=== PATIENT | female | born 1940 | race Caucasian/White ===

== ENCOUNTER → 2019-09-26 | Outpatient (CLI) | payer MEDICARE, OTHER ==
[2019-09-26 11:38] LABS: BASO % 0 % (0-3); EOS # 0.1 x10^3/uL (0.0-0.7); EOS % 2 % (0-3); HEMATOCRIT 41.2 % (36.0-47.0); HEMOGLOBIN 13.8 g/dL (12.0-15.5); LYMPH # 1.7 x10^3/uL (1.0-4.8); LYMPH % 29 % (24-48); MEAN CORPUSCULAR HEMOGLOBIN 30 pg (25-35); MEAN CORPUSCULAR HGB CONC 34 g/dL (31-37); MEAN CORPUSCULAR VOLUME 91 fL (79-100); MONO # 0.3 x10^3/uL (0.0-1.1); MONO % 6 % (0-9); NEUT # 3.7 x10^3uL (1.8-7.7); NEUT % 63 % (31-73); PLATELET COUNT 192 x10^3/uL (140-400); RED BLOOD COUNT 4.55 x10^6/uL (3.50-5.40); RED CELL DISTRIBUTION WIDTH 14.1 % (11.5-14.5); WHITE BLOOD COUNT 5.8 x10^3/uL (4.0-11.0)
[2019-09-26 11:51] LABS: ALBUMIN 3.7 g/dL (3.4-5.0); ALBUMIN/GLOBULIN RATIO 0.9 (1.0-1.7); CALCIUM 9.4 mg/dL (8.5-10.1); CREATININE 0.9 mg/dL (0.6-1.0); GFR 60.7; TOTAL BILIRUBIN 0.5 mg/dL (0.2-1.0); TOTAL PROTEIN 7.7 g/dL (6.4-8.2)
[2019-09-26 12:06] LABS: AMORPHOUS SEDIMENT,UR PRESENT /HPF; BACTERIA,URINE MOD /HPF (0-FEW); BILIRUBIN,URINE NEG (NEG); CLARITY,URINE CLOUDY; COLOR,URINE AMBER; GLUCOSE,URINE NEG (NEG); NITRITE,URINE NEG (NEG); SQUAMOUS EPITHELIAL CELL,UR MOD /LPF; UROBILINOGEN,URINE 0.2 mg/dL (0.2 mg/dL)
[2019-09-26 12:07] LABS: GRANULAR CASTS,URINE OCC /HPF; HYALINE CASTS, URINE MOD /HPF
== END | disposition home or self-care (01) ==
LOC: LAB 10:35
PROVIDERS: ATTEND Family Medicine
DX: R10.32 Left lower quadrant pain (principal); R63.0 Anorexia; Z93.3 Colostomy status
CPT/HCPCS: 36415; 80053; 81001; 82150; 83690; 85025; 87086

== ENCOUNTER → 2019-10-05 | Outpatient (CLI) | payer OTHER ==
[~2019-10-05] MED LIST: IOHEXOL 240 MG/ML 50ML VIAL. ONE
--- NOTE | 2019-10-05 11:41 | RAD ---
CT abdomen pelvis with oral contrast only Indication: Lower abdominal pain Technique: Noncontrast CT imaging was performed of the abdomen and pelvis, multiplanar reconstruction images submitted. Oral contrast was given. One or more of the following individualized dose reduction techniques were utilized for this examination: 1. Automated exposure control 2. Adjustment of the mA and/or kV according to patient size 3. Use of iterative reconstruction technique. Comparison: April 13, 2008 Findings: There is some motion degradation. Accurate evaluation of abdominal visceral organs is limited without intravenous contrast. There are some splenic granulomas. No new obvious focal abnormality is identified of the liver, spleen, pancreas allowing for noncontrast technique. There is focus of peripheral round calcification near the splenic hilum now present about 1.1 cm maximal dimension. There is no hydronephrosis of either kidney. No convincing renal calculus is identified. There is no adrenal nodularity. No free air is identified. There is now anterior left pelvic colostomy. There is degree of wall thickening of the descending colon and to lesser degree of the more distal transverse colon. There is some stool density in the region of rectum. There is some density with displacement of contrast column of bowel in the right pelvis apparently near anastomotic site such as seen axial images 80 and 87 series 2. There is no significant free fluid. There is multilevel lumbar facet degenerative change. There is grade 1 anterior spondylolisthesis L5-S1. IMPRESSION: 1. There is appearance of degree of wall thickening of the descending colon as may be seen with colitis. There is left colostomy. There is appearance of some wall irregularity of bowel in the right pelvis near anastomotic site although may be on a postsurgical basis. 2. 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 Electronically signed by: Irvin Ferrara MD (10/05/2019 11:38 AM) [id number]
== END | disposition home or self-care (01) ==
LOC: CT 08:53
PROVIDERS: ATTEND Physician Assistant
DX: D73.89 Other diseases of spleen (principal)
CPT/HCPCS: 74176

== ENCOUNTER → 2020-11-16 | Outpatient (CLI) | payer OTHER ==
[2020-11-16 11:12] LABS: ALBUMIN 3.7 g/dL (3.4-5.0); CALCIUM 8.6 mg/dL (8.5-10.1); CREATININE 0.7 mg/dL (0.6-1.0); GFR 80.9; POTASSIUM 3.4 mmol/L (3.5-5.1); TOTAL BILIRUBIN 0.5 mg/dL (0.2-1.0); TOTAL PROTEIN 7.3 g/dL (6.4-8.2)
[2020-11-16 11:14] LABS: BASO % 1 % (0-3); EOS % 1 % (0-3); HEMATOCRIT 37.8 % (36.0-47.0); HEMOGLOBIN 12.5 g/dL (12.0-15.5); LYMPH # 1.3 x10^3/uL (1.0-4.8); LYMPH % 28 % (24-48); MEAN CORPUSCULAR HEMOGLOBIN 31 pg (25-35); MEAN CORPUSCULAR HGB CONC 33 g/dL (31-37); MEAN CORPUSCULAR VOLUME 93 fL (79-100); MONO # 0.3 x10^3/uL (0.0-1.1); MONO % 6 % (0-9); NEUT % 65 % (31-73); PLATELET COUNT 178 x10^3/uL (140-400); RED BLOOD COUNT 4.05 x10^6/uL (3.50-5.40); RED CELL DISTRIBUTION WIDTH 14.4 % (11.5-14.5); WHITE BLOOD COUNT 4.7 x10^3/uL (4.0-11.0)
== END ==
LOC: LAB 09:27
PROVIDERS: ATTEND Family Medicine
DX: E87.6 Hypokalemia (principal); E53.8 Deficiency of other specified B group vitamins; E03.9 Hypothyroidism, unspecified; E55.9 Vitamin D deficiency, unspecified; K21.9 Gastro-esophageal reflux disease without esophagitis; F34.1 Dysthymic disorder; F33.1 Major depressive disorder, recurrent, moderate
CPT/HCPCS: 36415; 80053; 80061; 82150; 82652; 83690; 85025

== ENCOUNTER 2020-12-11 10:30 | Emergency (ER) | payer OTHER ==
[~2020-12-11] VITALS: Ht 157.5 cm; Wt 110.0 kg
[2020-12-11 10:30] VITALS: BP 136/48
--- NOTE | 2020-12-11 10:41 | PHYS DOC ---
Past History Past Medical History: Dementia, Hypertension Past Medical History Hypokalemia Past Surgical History: Colectomy, Hysterectomy Smoking: Non-smoker Alcohol Use: None Drug Use: None General Adult EDM: Chief Complaint: MECHANICAL FALL HPI: HPI: Patient is a 80 year old female who presents with fall. The patient has dementia and history came from her daughter who is at bedside. According to the daughter she lost her balance and fell while ambulating and landed on the back of her head. The daughter states that she did lose consciousness for several minutes. The patient notes a laceration on the back of her head, but denies any neck pain or other symptoms although she is not a reliable historian. The daughter also notes that the patient had another fall yesterday, and has some concern for a possible UTI. Review of Systems: Review of Systems: Review of systems limited due to patient's mental status. Allergies: Allergies: Allergies Coded Allergies Type Severity Reaction Last Updated Verified No Known Drug Allergies 10/05/19 No Physical Exam: PE: Constitutional: Well developed, well nourished, no acute distress, non-toxic appearance HENT: Normocephalic, atraumatic Eyes: PERRL, EOMI, conjunctiva normal, no discharge Neck: Normal range of motion, no tenderness, supple Lungs & Thorax: No respiratory distress, equal chest rise and fall Abdomen: Soft, no tenderness Skin: Warm, dry, no erythema, no rash. Small 2 cm laceration on back of head. Back: No tenderness, no CVA tenderness Extremities: No tenderness, ROM intact, no edema Neurologic: Alert and oriented X 3, normal motor function, normal sensory function, no focal deficits noted Psychologic: Affect normal, patient is confused at baseline Physical exam was partly limited due to patient's mental status EKG: EKG: [] Radiology/Procedures: Radiology/Procedures: [] Course & Med Decision Making: Course & Med Decision Making Pertinent Labs and Imaging studies reviewed. (See chart for details) [] Dragon Disclaimer: Kenneth Disclaimer: This electronic medical record was generated, in whole or in part, using a voice recognition dictation system. Laceration/Wound Repair Laceration/Wound Repair : Wound Location: head Wound Length (cm): 2 Wound Explored: clean Betadine Prep?: Yes Progress Verbal consent obtained. Time out performed. Hand hygiene utilized. Wound cleaned with ChloraPrep. No anesthesia was utilized. Copious irrigation performed. Wound well approximated with 3 hailey. Patient tolerated procedure well and without difficulty. Empiric antibiotic ointment applied prior to sterile dressing. Departure Departure: Impression: Primary Impression: Occipital scalp laceration Qualified Codes: S01.01XA - Laceration without foreign body of scalp, initial encounter Additional Impressions: Fall Qualified Codes: W19.XXXA - Unspecified fall, initial encounter Minor head injury with loss of consciousness Qualified Codes: S06.9X9A - Unspecified intracranial injury with loss of consciousness of unspecified duration, initial encounter Disposition: 01 DC HOME SELF CARE/HOMELESS Condition: STABLE Referrals: AMAYA PALMER MD (PCP) Patient Instructions: Fall Prevention and Home Safety, [id number], Head Inj ury, Adult, [id number], Laceration Care, Adult, [id number] Additional Instructions: Do not soak your wound. You may shower. Clean wound daily with soap and water. Change dressing 2 times daily. Use over the counter antibiotic ointment with each dressing change. [place] need to be removed in 7-10 days. Present to your family doctor or local urgent care for removal. You may also present to the ED but it will be an additional visit/charge. DILAN REAGAN DO Dec 11, 2020 10:41
--- NOTE | 2020-12-11 11:31 | RAD ---
CT HEAD AND C-SPINE WO History: Reason: occipital scalp laceration / Spl. Instructions: / History: Comparison: None. Technique: Noncontrast CT of the head and cervical spine. Findings: CT HEAD: There is no evidence for intracranial mass or hemorrhage. There is no hydrocephalus or midline shift. No abnormal extra-axial fluid collections are present. Arellano/white matter differentiation is preserved. The visualized paranasal sinuses and mastoid air cells are clear. No skull fractures identified. There are skin hailey at the occiput. CT CERVICAL SPINE: There is no evidence for fracture in the cervical spine. Alignment is normal. Multilevel disc and facet disease with disc space narrowing, uncovertebral and facet hypertrophy thro ughout the cervical spine. No destructive osseous lesions are seen. Limited evaluation of the soft tissues of the neck and of the upper chest is unremarkable. Impression: 1. No acute intracranial abnormality. 2. Degenerative changes of the cervical spine without acute osseous abnormality. Exposure: One or more of the following individualized dose reduction techniques were utilized for thi s examination: 1. Automated exposure control 2. Adjustment of the mA and/or kV according to patient size 3. Use of iterative reconstruction technique. Electronically signed by: Jorge A Vargas MD (12/11/2020 11:29 AM) [facility]
[2020-12-11] MEDS ORDERED: NEOMY/BACITR/POLYMYXIN OINT PACKET. TP ONE (12:00)
[2020-12-11 13:25] LABS: BACTERIA,URINE MANY /HPF (0-FEW); BILIRUBIN,URINE NEG (NEG); CLARITY,URINE CLOUDY; COLOR,URINE YELLOW; GLUCOSE,URINE NEG (NEG); NITRITE,URINE POS (NEG); SQUAMOUS EPITHELIAL CELL,UR FEW /LPF; UROBILINOGEN,URINE 0.2 mg/dL (0.2 mg/dL); WBC,URINE >40 /HPF (0-4)
[2020-12-11 13:26] LABS: HYALINE CASTS, URINE OCC /HPF
== END 2020-12-11 13:10 | disposition home or self-care (01) ==
LOC: ER 10:30
DX: S01.01XA Laceration without foreign body of scalp, initial encounter (principal); S06.9X9A Unspecified intracranial injury with loss of consciousness of unspecified duration, initial encounter; F03.90 Unspecified dementia, unspecified severity, without behavioral disturbance, psychotic disturbance, mood disturbance, and anxiety; I10 Essential (primary) hypertension; W18.39XA Other fall on same level, initial encounter; Y93.89 Activity, other specified; Y92.89 Other specified places as the place of occurrence of the external cause; Y99.8 Other external cause status
CPT/HCPCS: 12001; 70450; 72125; 81001; 87086; 99285-25

== ENCOUNTER 2021-01-07 03:18 | Emergency (ER) | payer OTHER ==
[~2021-01-07] VITALS: Ht 157.5 cm; Wt 110.0 kg
[2021-01-07 03:18] VITALS: BP 108/54
--- NOTE | 2021-01-07 03:21 | PHYS DOC ---
Past History Past Medical History: A-Fib, Anxiety, Arthritis, Dementia, Hypertension, Renal Failure, Other Additional Past Medical Histor: Hypokalemia Past Surgical History: Colectomy, Hysterectomy Smoking: Non-smoker Alcohol Use: None Drug Use: None General Adult EDM: Chief Complaint: DIZZY/LIGHT HEADED HPI: HPI: "....I just want to pee.. I don't want ... to be here... My family made me come.. I don't have any thing wrong.. I just fell .. I was getting up to go pee... I just want to go home now...".."tell my people to take me home now..." " Patient reportedly was having weakness this week with increased dizziness and difficulty with her gait. Has had frequent falls for the last 2 weeks. Patient... Will not follow instructions with the family. We will not wait until they can assist her to the bathroom.,,, They brought her to the emergency room tonight to be further evaluated because of her increased weakness and falls..." Patient is a 80 year old female who presents with above hx and complaints. Pt. patient has had 2 weeks of increased weakness, dizziness, and difficulty with her gait. Patient has had no changes in meds. No recent travel. No severe ill contacts. Patient does have a history of dementia, hypertension, arthritis, and urinary tract infections. No recent travel. No severe ill contacts. Son is a primary shorts sifter. Patient has fallen several times last 2 weeks. Patient did denies any change in rhythm prior to her falls. But does think complained of increased weakness the past 2 weeks. Review of Systems: Review of Systems: Constitutional: Denies fever or chills Eyes: Denies change in visual acuity HENT: Denies nasal congestion or sore throat Respiratory: Denies cough or shortness of breath Cardiovascular: Denies chest pain or edema GI: Denies abdominal pain, nausea, vomiting, bloody stools or diarrhea : Complains of frequent urination and dysuria Musculoskeletal: Complains of multiple arthritic issues and joint pain. Complai ns of generalized muscle weakness both upper and lower extremities Integument: Denies rash Neurologic: Denies headache, focal weakness or sensory changes Endocrine: Denies polyuria or polydipsia Lymphatic: Denies swollen glands Psychiatric: D history of anxiety Family History: Family History: Noncontributory to presentation Current Medications: Current Meds: See nursing for home medications Allergies: Allergies: Allergies Coded Allergies Type Severity Reaction Last Updated Verified No Known Drug Allergies 10/05/19 No Physical Exam: PE: Constitutional: Chronically ill in appearance. [] HENT: Normocephalic, atraumatic, bilateral external ears normal, oropharynx dry, no oral exudates, nose normal. [] Eyes: PERRLA, EOMI, conjunctiva normal, no discharge. [] Neck: Normal range of motion, no tenderness, supple, no stridor. [] Cardiovascular: Irregular rate and rhythm no murmur [], monitor shows A. fib with ventricular response in the 70s Lungs & Thorax: Bilateral breath sounds equal apex with a few basilar crackles on auscultation [] Abdomen: Bowel sounds normal, soft, no tenderness, no masses, no pulsatile masses. Distended Skin: Warm, dry, no erythema, no rash. Poor turgor Back: No tenderness, no CVA tenderness. [] Extremities: No tenderness, no cyanosis, no clubbing, ROM intact, no edema. Arthritic changes Neurologic: Alert and oriented X 3, moves all extremities on request, does have distal sensory, no focal deficits noted. [] Psychologic: Affect argumentative, judgement appears to have some impairment, mood normal. [] Does have a history of dementia. EKG: EKG: My interpretation EKG shows a irregular rate and rhythm. No consistent Pwave to QRS complex. Consistent with A. fib. Does have slightly prolonged QT interval at 450 ms QTC is 495 ms. Radiology/Procedures: Radiology/Procedures: [address] [address] IMAGING REPORT Signed PATIENT: JUAN GARCÍA ACCOUNT: [id number] : 1940 LOCATION: ER AGE: 80 SEX: F EXAM STATUS: REG ER ORD. PHYSICIAN: BHUPINDER STEWART MD REASON: fall,dyspnesa PROCEDURE: PORTABLE CHEST 1V AP chest x-ray HISTORY: Fall, dyspnea. COMPARISON: Chest x-ray May 16, 2008. FINDINGS: Heart size normal. Mediastinal silhouette is normal. No pneumothorax. No pleural effusions. At the lateral aspect of the right midline there is a 7 mm nodular density new from prior x-rays could represent round pneumonia or a new pulmonary nodule. Left lung is clear. Bones are unremarkable. IMPRESSION: 7 mm density at the right mid lung could represent round pneumonia or a pulmonary nodule. Short-term follow-up chest x-rays versus CT chest follow- up is advised. Electronically signed by: John Avelar MD (01/07/2021 4:50 AM) [facility] [place]ATED AND SIGNED BY: JOHN AVELAR MD DATE: 01/07/21 0448 CC: AMAYA PALMER MD; BHUPINDER STEWART MD ~MTH0 [address] [address] IMAGING REPORT Signed PATIENT: JUAN GARCÍA ACCOUNT: [id number] : 1940 LOCATION: ER AGE: 80 SEX: F EXAM STATUS: REG ER ORD. PHYSICIAN: BHUPINDER STEWART MD REASON: falling PROCEDURE: CT LUMBAR SPINE WO CONTRAST CT head without contrast. CT cervical spine without contrast. CT lumbar spine without contrast. PQRS statement: CT scans at this facility use dose reduction including either automated exposure control, iterative reconstructions, and /or weight based radiation dosing via mA and kV modification when appropriate to reduce radiation dose to as low as reasonably achievable. HISTORY: Fall, pain. CT head findings: Small dural calcifications are present. No intracranial hemorrhage, mass, hydrocephalus, extra-axial fluid collections or infarction. Orbits, mastoids and bones are unremarkable. IMPRESSION: No acute intracranial CT abnormality. 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 Craniocervical junction intact. Cervical vertebral body height and alignment intact. 1 mm anterolisthesis C4 on C5 associated with facet arthritis. No f racture of the cervical spine. Moderate disc height loss at C5-C6 and C6-C7, scattered disc bulges, and disc osteophytes and uncovertebral facet spurring with spinal canal and neural foraminal stenoses. Imaged lung apices and paraspinal tissues are unremarkable. IMPRESSION: No acute osseous injury of the cervical spine. Cervical disc disease as described above. CT lumbar spine findings: Grade 1 anterolisthesis of L5 on S1 associated with disc disease and advanced facet arthritis. Lumbar vertebral body height and alignment intact. Lumbar disc bulges and facet spurring at several levels. At L4-L5 there is a disc bulge with mild spinal canal and neural foraminal stenoses. At L5-S1 there is disc height loss and disc bulge and bulky facet spurs contribute to moderate neural foraminal stenoses and mild/moderate spinal canal stenosis. IMPRESSION: No acute osseous injury of the lumbar spine. Lumbar disc disease and facet arthrosis. See above. Electronically signed by: John Avelar MD (01/07/2021 5:02 AM) [facility] SIGNED BY: JOHN AVELAR MD DATE: 01/07/21452 CC: AMAYA PALMER MD; BHUPINDER STEWART MD ~MTH0 0 Heart Score: C/O Chest Pain: N/A HEART Score for Chest Pain: HEART Score for Chest Pain Response (Comments) Value History Moderately Suspicious 1 ECG Nonspecific Repolarizatio 1 Age > 65 2 Risk Factors 1 or 2 Risk Factors 1 Troponin < Normal Limit 0 Total 5 Risk Factors: Risk Factors: DM, Current or recent (<one month) smoker, HTN, HLP, family history of CAD, obesity. Risk Scores: Score 0 - 3: 2.5% MACE over next 6 weeks - Discharge Home Score 4 - 6: 20.3% MACE over next 6 weeks - Admit for Clinical Observation Score 7 - 10: 72.7% MACE over next 6 weeks - Early Invasive Strategies Course & Med Decision Making: Course & Med Decision Making Pertinent Labs and Imaging studies reviewed. (See chart for details) Discussed presentation, testing and tx. plan with Dr. Yeung- [facility]. Will accept pt in transfer for nephrology and and cardiology consults at [facility] Will start heparin for coverage A. fib and give fluid bolus. Urine cath pending. Impression: 1. Weakness 2. Dehydration 3. Arthritis 4. Falling 5. Acute Renal Failure- BUnN72/4.2 Creat.- (Dehydration vs Acute on Chronic) 6. Afib. New on set. 7. Anemia Hgb. 11.5 8. Dementia [] Dragon Disclaimer: Kenneth Disclaimer: This electronic medical record was generated, in whole or in part, using a voice recognition dictation system. Departure Departure: Referrals: AMAYA PALMER MD (PCP) Kenneth Disclaimer This chart was dictated in whole or in part using Voice Recognition software in a busy, high-work load, and often noisy Emergency Department environment. It may contain unintended and wholly unrecognized errors or omissions. BHUPINDER STEWART MD Jan 07, 2021 03:21
[2021-01-07] MEDS ORDERED: IV RINGERS SOLUTION,LACTATED 1,000 ML IV SCH (04:15)
--- NOTE | 2021-01-07 04:25 | EKG ---
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
--- NOTE | 2021-01-07 04:52 | RAD ---
AP chest x-ray HISTORY: Fall, dyspnea. COMPARISON: Chest x-ray May 16, 2008. FINDINGS: Heart size normal. Mediastinal silhouette is normal. No pneumothorax. No pleural effusions. At the lateral aspect of the right midline there is a 7 mm nodular density new from prior x-rays cou ld represent round pneumonia or a new pulmonary nodule. Left lung is clear. Bones are unremarkable. IMPRESSION: 7 mm density at the right mid lung could represent round pneumonia or a pulmonary nodule. Short-term follow-up chest x-rays versus CT chest follow-up is advised. Electronically signed by: Paresh Avelar MD (01/07/2021 4:50 AM) [facility]
[2021-01-07 05:01] LABS: BASO % 1 % (0-3); EOS % 1 % (0-3); HEMATOCRIT 34.9 % (36.0-47.0); HEMOGLOBIN 11.5 g/dL (12.0-15.5); LYMPH # 1.6 x10^3/uL (1.0-4.8); LYMPH % 19 % (24-48); MEAN CORPUSCULAR HEMOGLOBIN 31 pg (25-35); MEAN CORPUSCULAR HGB CONC 33 g/dL (31-37); MEAN CORPUSCULAR VOLUME 94 fL (79-100); MONO # 0.6 x10^3/uL (0.0-1.1); MONO % 7 % (0-9); NEUT # 5.9 x10^3uL (1.8-7.7); NEUT % 73 % (31-73); PLATELET COUNT 190 x10^3/uL (140-400); RED BLOOD COUNT 3.72 x10^6/uL (3.50-5.40); RED CELL DISTRIBUTION WIDTH 14.1 % (11.5-14.5); WHITE BLOOD COUNT 8.1 x10^3/uL (4.0-11.0)
--- NOTE | 2021-01-07 05:05 | RAD ---
CT head without contrast. CT cervical spine without contrast. CT lumbar spine without contrast. PQRS statement: CT scans at this facility use dose reduction including either automated exposure cont rol, iterative reconstructions, and /or weight based radiation dosing via mA and kV modification when appropriate to reduce radiation dose to as low as reasonably achievable. HISTORY: Fall, pain. CT head findings: Small dural calcifications are present. No intracranial hemorrhage, mass, hydroceph alus, extra-axial fluid collections or infarction. Orbits, mastoids and bones are unremarkable. IMPRESSION: No acute intracranial CT abnormality. 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 Craniocervical junction in tact. Cervical vertebral body height and alignment intact. 1 mm anterolisthesis C4 on C5 associated w ith facet arthritis. No fracture of the cervical spine. Moderate disc height loss at C5-C6 and C6-C7, scattered disc bulges, and disc osteophytes and uncovertebral facet spurring with spinal canal and n eural foraminal stenoses. Imaged lung apices and paraspinal tissues are unremarkable. IMPRESSION: No acute osseous injury of the cervical spine. Cervical disc disease as described above. CT lumbar spine findings: Grade 1 anterolisthesis of L5 on S1 associated with disc disease and advanc ed facet arthritis. Lumbar vertebral body height and alignment intact. Lumbar disc bulges and facet s purring at several levels. At L4-L5 there is a disc bulge with mild spinal canal and neural foraminal stenoses. At L5-S1 there is disc height loss and disc bulge and bulky facet spurs contribute to mode rate neural foraminal stenoses and mild/moderate spinal canal stenosis. IMPRESSION: No acute osseous injury of the lumbar spine. Lumbar disc disease and facet arthrosis. See above. Electronically signed by: Paresh Avelar MD (01/07/2021 5:02 AM) [facility]
[2021-01-07 05:13] LABS: CALCIUM 8.2 mg/dL (8.5-10.1); CREATININE 4.2 mg/dL (0.6-1.0); GFR 10.2; POTASSIUM 3.3 mmol/L (3.5-5.1)
[2021-01-07 05:26] LABS: ALBUMIN 3.8 g/dL (3.4-5.0); DIRECT BILIRUBIN 0.1 mg/dL (0.0-0.2); MAGNESIUM 1.3 mg/dL (1.8-2.4); TOTAL BILIRUBIN 0.2 mg/dL (0.2-1.0)
[2021-01-07] MEDS ORDERED: HEPARIN 25,000UTS/250ML PREMIX 250 ML IV PRN (06:00)
== END 2021-01-07 07:42 | disposition short-term general hospital (02) ==
LOC: ER 03:18
DX: N17.9 Acute kidney failure, unspecified (principal); R53.1 Weakness; E86.0 Dehydration; M19.90 Unspecified osteoarthritis, unspecified site; I48.91 Unspecified atrial fibrillation; D64.9 Anemia, unspecified; F03.90 Unspecified dementia, unspecified severity, without behavioral disturbance, psychotic disturbance, mood disturbance, and anxiety; F41.9 Anxiety disorder, unspecified; W18.39XA Other fall on same level, initial encounter; Y93.89 Activity, other specified; Y92.89 Other specified places as the place of occurrence of the external cause; Y99.8 Other external cause status
CPT/HCPCS: 36415; 70450; 71045; 72125; 72131; 80048; 80076; 82550; 83690; 83735; 83880; 84443; 84484; 85025; 85610; 85730; 93005; 99285-25

== ENCOUNTER 2021-04-20 12:43 | Inpatient (IN) | payer OTHER ==
[~2021-04-20] VITALS: Ht 157.5 cm; Wt 63.3 kg
--- NOTE | 2021-04-20 12:56 | PHYS DOC ---
Past History Past Medical History: A-Fib, Anxiety, Arthritis, Dementia, Hypertension, Renal Failure, Other Additional Past Medical Histor: Hypokalemia Past Surgical History: Colectomy, Hysterectomy Smoking: Non-smoker Alcohol Use: None Drug Use: None Adult General Chief Complaint Chief Complaint: URINARY RETENTION HPI HPI Patient is a 80-year-old female presenting with daughter by way of PCP office for dehydration. She has history of Alzheimer's dementia and patient history limited. Primary historian is daughter. Patient lives with and other family members and has been having poor p.o. intake and urine output for the last week without any known changes in medication, sick contacts, recent travel, trauma, or falls. This morning, patient reported she was nauseous and had x2 episodes of nonbloody nonbilious emesis. This concerned daughter prompting her to transport patient to primary care physician office. Patient reported ongoing nausea and was clinically dehydrated, she has history of failure to thrive and subsequent GALLO due to dehydration and so, daughter was advised to bring patient to our ER for evaluation and likely admission Review of Systems Review of Systems Fourteen body systems of review of systems have been reviewed. See HPI for pertinent positives and negative responses, other villegas all other systems are negative, non-pertinent or non-contributory Allergies Allergies Allergies Coded Allergies Type Severity Reaction Last Updated Verified No Known Drug Allergies 10/05/19 No Physical Exam Physical Exam Constitutional: Age-appropriate. No acute distress. Appears clinically dehydrated HENT: Normocephalic, atraumatic, bilateral external ears normal, oropharynx dry, no oral exudates, nose normal. Eyes: PERRLA, EOMI, conjunctiva normal, no discharge. Neck: Normal range of motion, no tenderness, supple, no stridor. Cardiovascular: Heart rate regular, sinus rhythm, holosystolic murmur Lungs & Thorax: Bilateral breath sounds clear to auscultation Abdomen: Bowel sounds normal, soft, no tenderness, no masses, no pulsatile masses. Nonsurgical abdomen, no peritoneal signs Skin: Warm, dry, no erythema, no rash. Back: No tenderness, no CVA tenderness. Extremities: No tenderness, no cyanosis, no clubbing, ROM intact, no edema. Neurologic: Alert and oriented to person only, grossly normal motor & sensory function, no focal deficits noted. Psychologic: Alzheimer's dementia, agitated affect and mood Current Patient Data Vital Signs Vital Signs Date Time Temp Pulse Resp B/P (MAP) Pulse Ox O2 Delivery O2 Flow Rate FiO2 04/20/21 15:01 55 18 108/54 99 Vital Signs Date Time Temp Pulse Resp B/P (MAP) Pulse Ox O2 Delivery O2 Flow Rate FiO2 04/20/21 15:01 55 18 108/54 99 Lab Results Laboratory Tests Test 04/20/21 13:45 White Blood Count 7.4 x10^3/uL Red Blood Count 4.05 x10^6/uL Hemoglobin 12.6 g/dL Hematocrit 38.4 % Mean Corpuscular Volume 95 fL Mean Corpuscular Hemoglobin 31 pg Mean Corpuscular Hemoglobin Concent 33 g/dL Red Cell Distribution Width 13.3 % Platelet Count 195 x10^3/uL Neutrophils (%) (Auto) 82 % Lymphocytes (%) (Auto) 14 % Monocytes (%) (Auto) 4 % Eosinophils (%) (Auto) 0 % Basophils (%) (Auto) 0 % Neutrophils # (Auto) 6.0 x10^3uL Lymphocytes # (Auto) 1.1 x10^3/uL Monocytes # (Auto) 0.3 x10^3/uL Eosinophils # (Auto) 0.0 x10^3/uL Basophils # (Auto) 0.0 x10^3/uL Sodium Level 144 mmol/L Potassium Level 4.8 mmol/L Chloride Level 112 mmol/L Carbon Dioxide Level 13 mmol/L Anion Gap 19 Blood Urea Nitrogen 109 mg/dL Creatinine 3.7 mg/dL Estimated GFR (Cockcroft-Gault) 11.8 BUN/Creatinine Ratio 29 Glucose Level 132 mg/dL Calcium Level 9.6 mg/dL Total Bilirubin 0.3 mg/dL Aspartate Amino Transf (AST/SGOT) 12 U/L Alanine Aminotransferase (ALT/SGPT) 17 U/L Alkaline Phosphatase 110 U/L Troponin I Quantitative < 0.017 ng/mL ER-Mmj-G-Type Natriuretic Peptide 237 pg/mL Total Protein 7.8 g/dL Albumin 4.2 g/dL Albumin/Globulin Ratio 1.2 Current Medications Medications (Trade) Dose Ordered Sig/Brian Route PRN Reason Start Time Stop Time Status Last Admin Dose Admin Sodium Chloride 1,000 ml @ 1,000 mls/hr 1X ONCE IV 04/20/21 13:45 04/20/21 14:44 DC Sodium Chloride 1,000 ml @ 125 mls/hr 1X ONCE IV 04/20/21 15:00 04/20/21 22:59 Ondansetron HCl (Zofran) 4 mg PRN Q4HRS PRN IVP NAUSEA/VOMITING 04/20/21 15:15 04/21/21 15:14 Acetaminophen (Tylenol) 650 mg PRN Q4HRS PRN PO FEVER > 100.3'F 04/20/21 15:15 04/21/21 15:14 EKG EKG EKG ordered and interpreted by myself at 1402 hrs. as sinus rhythm at 72 bpm, prolonged AL interval at 204 otherwise unremarkable intervals, no axis deviation, no acute ischemic findings, no STEMI Radiology/Procedures Radiology/Procedures EXAMINATION: XR CHEST 1V CLINICAL HISTORY: Fatigue EXAM DATE/TIME: 04/20/2021 2:30 PM COMPARISON: 01/07/2021 FINDINGS: Lines, Tubes, and Devices: None. Cardiomediastinal Silhouette: Normal heart size. Aortic atherosclerotic calcification. Lungs and Pleura: Similar appearing small ill-defined opacity in the right lower lung zone, nonspecific. No evidence of focal airspace consolidation or pleural effusion. Pulmonary vasculature unremarkable. Bones and Soft Tissues: Degenerative changes of the thoracic spine. IMPRESSION: No evidence of acute cardiopulmonary abnormality or significant interval change. Similar-appearing small ill-defined opacity in the right lower lung zone, nonspecific. Nonemergent CT chest could be obtained for further evaluation as indicated. Electronically signed by: Stevo Le DO (04/20/2021 2:48 PM) [facility] Heart Score C/O Chest Pain: No HEART Score for Chest Pain: HEART Score for Chest Pain Response (Comments) Value History Slighlty/Non-Suspicious 0 ECG Nonspecific Repolarizatio 1 Age > 65 2 Risk Factors No Risk Factors 0 Troponin < Normal Limit 0 Total 3 Risk Factors: Risk Factors: DM, Current or recent (<one month) smoker, HTN, HLP, family history of CAD, obesity. Risk Scores: Risk Factors: DM, Current or recent (<one month) smoker, HTN, HLP, family history of CAD, obesity. Course & Med Decision Making Course & Med Decision Making ABCs unremarkable. HPI from daughter and physical examination concerning for dehydration versus failure to thrive. Comprehensive ER work-up concerning for GALLO likely due to hypovolemic state Patient tolerated 1 L IV fluid rehydration. I discussed with daughter there is no indication for further diagnostic work-up in ER setting; however, given patient's kidney status she will require admission Contacted patient's primary care physician who also serves as hospitalist at [facility], discussion was had on appropriateness to keep versus transfer for nephrology consultation. Joint decision to keep patient at [facility] due to extensive hypovolemic state that should improve This discussion was discussed with patient and daughter at bedside with recommendation for admission, they were amenable. All questions and concerns addressed prior to hospital admission to [facility] This patient required critical care. Due to the fact that the patient required a significant amount of one on one physician - patient contact time, ordering and review of studies, arranging urgent treatment with development of a management plan, evaluation of patients response to treatment with frequent reassessments, and discussions with other providers this patient required 30 minutes of critical care time. Critical care time was indicated due to the inherent instability and/or potential for instability in this patient. The critical care time that is allocated to this patient is above and beyond any time spent on any other billable procedures performed on this patient. Dragon Disclaimer Dragon Disclaimer This electronic medical record was generated, in whole or in part, using a voice recognition dictation system. Departure Departure: Impression: Primary Impression: GALLO (acute kidney injury) Additional Impressions: Failure to thrive Dementia Disposition: ADMITTED INPATIENT Admitting Physician: Murray Palmer Condition: STABLE Referrals: MURRAY PALMER MD (PCP) Problem Qualifiers GERALD GARCIA DO Apr 20, 2021 12:56
[2021-04-20] MEDS ORDERED: IV NORMAL SALINE 1,000ML 1,000 ML IV ONE ×2 (13:45→15:00)
[2021-04-20 14:01] LABS: BASO % 0 % (0-3); EOS % 0 % (0-3); HEMATOCRIT 38.4 % (36.0-47.0); HEMOGLOBIN 12.6 g/dL (12.0-15.5); LYMPH # 1.1 x10^3/uL (1.0-4.8); LYMPH % 14 % (24-48); MEAN CORPUSCULAR HEMOGLOBIN 31 pg (25-35); MEAN CORPUSCULAR HGB CONC 33 g/dL (31-37); MEAN CORPUSCULAR VOLUME 95 fL (79-100); MONO # 0.3 x10^3/uL (0.0-1.1); MONO % 4 % (0-9); NEUT % 82 % (31-73); PLATELET COUNT 195 x10^3/uL (140-400); RED BLOOD COUNT 4.05 x10^6/uL (3.50-5.40); RED CELL DISTRIBUTION WIDTH 13.3 % (11.5-14.5); WHITE BLOOD COUNT 7.4 x10^3/uL (4.0-11.0)
[2021-04-20 14:16] LABS: ALBUMIN 4.2 g/dL (3.4-5.0); ALBUMIN/GLOBULIN RATIO 1.2 (1.0-1.7); CALCIUM 9.6 mg/dL (8.5-10.1); CREATININE 3.7 mg/dL (0.6-1.0); GFR 11.8; POTASSIUM 4.8 mmol/L (3.5-5.1); TOTAL BILIRUBIN 0.3 mg/dL (0.2-1.0); TOTAL PROTEIN 7.8 g/dL (6.4-8.2)
--- NOTE | 2021-04-20 14:50 | RAD ---
EXAMINATION: XR CHEST 1V CLINICAL HISTORY: Fatigue EXAM DATE/TIME: 04/20/2021 2:30 PM COMPARISON: 01/07/2021 FINDINGS: Lines, Tubes, and Devices: None. Cardiomediastinal Silhouette: Normal heart size. Aortic atherosclerotic calcification. Lungs and Pleura: Similar appearing small ill-defined opacity in the right lower lung zone, nonspecif ic. No evidence of focal airspace consolidation or pleural effusion. Pulmonary vasculature unremarkab le. Bones and Soft Tissues: Degenerative changes of the thoracic spine. IMPRESSION: No evidence of acute cardiopulmonary abnormality or significant interval change. Similar-appearing small ill-defined opacity in the right lower lung zone, nonspecific. Nonemergent CT chest could be obtained for further evaluation as indicated. Electronically signed by: Stevo Le DO (04/20/2021 2:48 PM) SHARA
[2021-04-20] MEDS ORDERED: ACETAMINOPHEN 325 MG TABLET PO PRN (15:15)
--- NOTE | 2021-04-20 18:14 | NUR ---
Pt admitted to room 123 from ED via ems at 1814. daughter stated that she will call nurses to give information about pt.
[2021-04-20] MEDS ORDERED: DEXTROSE 50% 25 GM / 50ML DISP.SYRIN. IV PRN (18:45)
[2021-04-20 19:00] VITALS: BP 115/60
[2021-04-20] MEDS ORDERED: POTA20TA4 PO (20:26)
[2021-04-20] MEDS ORDERED: FURO20TA3 PO (20:26)
[2021-04-20] MEDS ORDERED: LISI20TA18 PO (20:26)
[2021-04-20] MEDS ORDERED: OXCA300T19 PO (20:26)
[2021-04-20 22:30] VITALS: BP 116/69
--- NOTE | 2021-04-20 22:54 | NUR ---
Nursing note: Spoke to Kinjal, [id number], for med history and med rec. Dietary, CM orders placed. New IV placed. Spoke with Jessica Willis.Dayanna cadet.
--- NOTE | 2021-04-20 23:19 | EKG ---
[address] [address] Test Date: 2021-04-20 Test Time: 13:57:12 Pat Name: JUAN GARCÍA Department: Room: 123 A Gender: F [employer]: : [id number] Requested By: GERALD GARCIA Order Number: [id number] Reading MD: Sahil Reid Measurements Intervals [place] Rate: 72 P: 90 ND: 204 QRS: 90 QRSD: 92 T: 62 QT: 390 QTc: 429 Interpretive Statements SINUS RHYTHM Electronically Signed On 04-24-2021 12:32:47 CDT by Sahil Reid
[2021-04-21 00:36] LABS: BILIRUBIN,URINE NEG (NEG); CLARITY,URINE HAZY; COLOR,URINE YELLOW; GLUCOSE,URINE NEG (NEG)
[2021-04-21 00:37] LABS: NITRITE,URINE NEG (NEG); UROBILINOGEN,URINE 0.2 mg/dL (0.2 mg/dL)
[2021-04-21 00:38] LABS: BACTERIA,URINE MANY /HPF (0-FEW); GRANULAR CASTS,URINE OCC /HPF; SQUAMOUS EPITHELIAL CELL,UR OCC /LPF; WBC,URINE >40 /HPF (0-4)
[2021-04-21] MEDS ORDERED: IV NORMAL SALINE 1,000ML 1,000 ML IV SCH (04:00)
[2021-04-21 06:47] LABS: CALCIUM 8.3 mg/dL (8.5-10.1); CREATININE 2.3 mg/dL (0.6-1.0); GFR 20.5; POTASSIUM 4.1 mmol/L (3.5-5.1)
[2021-04-21] MEDS: INSULIN LISPRO 300 UNITS/3 ML VIAL. SQ SCH ×3 (08:00→17:00)
[2021-04-21 08:02] VITALS: BP 133/80
[2021-04-21] MEDS: LISINOPRIL 20 MG TABLET PO SCH (08:04)
[2021-04-21] MEDS: ONDANSETRON PF 4 MG/2 ML VIAL. IVP PRN ×2 (08:04→12:57)
[2021-04-21] MEDS: POTASSIUM CHLORIDE 20 MEQ TABLET.ER. PO SCH (08:04)
[2021-04-21 11:02] VITALS: BP 119/70
[2021-04-21] MEDS ORDERED: TPN PER PHARMACY MC PRN (12:00)
[2021-04-21] MEDS ORDERED: risperiDONE 0.25 MG TABLET. PO ONE (12:00)
[2021-04-21] MEDS ORDERED: AA 3%/ELECTROLYTE-TPN SOLN/GLY 1,000 ML IV SCH ×2 (13:00→16:00)
[2021-04-21] MEDS ORDERED: levoFLOXacin PER PHARMACY 1 EACH. MC PRN (13:30)
[2021-04-21 15:54] VITALS: BP 106/68
[2021-04-21] MEDS: AA 3%/ELECTROLYTE-TPN SOLN/GLY 1,000 ML IV PRN (16:03)
[2021-04-21 19:00] VITALS: BP 118/72
[2021-04-21] MEDS: LACTOBACILLUS RHAMNOSUS GG 1 CAPSULE. PO SCH (20:46)
[2021-04-21] MEDS ORDERED: risperiDONE 0.25 MG TABLET. PO SCH (21:00)
--- NOTE | 2021-04-21 22:04 | PN ---
SUBJECTIVE: The patient is a 80-year-old female. The patient has been having marked outburst of repetitive focal situation such as I am dying or people trying to kill me over and over again. We will start her on some Risperdal for that. The patient's creatinine has come down somewhat from over 3 down to 2.3, dehydration. Family states the patient is not willing to able to eat or drink at home, part of her dehydration and her acute on top of chronic renal failure along with hypernatremia. We will start her on procalamine because of the lack of caloric intake and decide where we need to go from there in terms of the family wanting feeding tubes or PICC lines or whatever for further aggressive nutritional supplementation; however, there is a very frail appearing white female, uncontrolled in her speech, repetitive in nature as indicated. PHYSICAL EXAMINATION: VITAL SIGNS: Blood pressure 120/70, respiration 18, pulse 75, afebrile. GENERAL: The patient has marked atrophy and musculoskeletal wasting. The patient is not able to answer questions very appropriately. LUNGS: Diminished, but clear. CARDIOVASCULAR: Stable. ABDOMEN: Soft, nontender. MUSCULOSKELETAL: Marked muscle wasting as indicated. LABORATORY DATA: The patient's creatinine is down to 2.3 and her BUN is down to 88 from 109 and 3.7 GFR at that time was 11.8, but that is improving as indicated and will continue to give her IV fluids. She did have greater than 40 white blood cells per high power field. Otherwise, lungs are clear. CVR exam is stable. Abdomen: Soft, nontender. No clubbing, cyanosis, nor edema except for this atrophy throughout her musculoskeletal system and wasting. She is cachectic. IMPRESSION: Severe dehydration, acute on top of chronic renal failure, change in mental status, psychotic outburst, dehydration, urinary tract infection, muscle wasting, and cachexia. PLAN: As noted above. LATRICE DR: Loreto TID: [id number]
[2021-04-22] MEDS: AA 3%/ELECTROLYTE-TPN SOLN/GLY 1,000 ML IV PRN (04:25)
[2021-04-22 05:02] VITALS: BP 150/79
[2021-04-22] MEDS ORDERED: ONDANSETRON PF 4 MG/2 ML VIAL. ONE (05:05)
[2021-04-22] MEDS ORDERED: ONDANSETRON PF 4 MG/2 ML VIAL. IVP PRN (05:15)
--- NOTE | 2021-04-22 05:41 | NUR ---
Pt slept very little overnight, up frequently to urinate. Pt continually asking "are you going to kill me? Am I going to ?" Attempted to reorient to hospital/situation and provide comfort. Pt not receptive. Encouraged PO fluids. Pt nauseous this AM, PRN zofran given per order. Procalamine still running at 80ml/hr.
[2021-04-22 06:30] LABS: CALCIUM 8.8 mg/dL (8.5-10.1); CREATININE 1.3 mg/dL (0.6-1.0); GFR 39.6; POTASSIUM 3.9 mmol/L (3.5-5.1)
[2021-04-22] MEDS: INSULIN LISPRO 300 UNITS/3 ML VIAL. SQ SCH ×3 (08:00→17:00)
[2021-04-22] MEDS: POTASSIUM CHLORIDE 20 MEQ TABLET.ER. PO SCH (08:46)
[2021-04-22] MEDS: LISINOPRIL 20 MG TABLET PO SCH (08:46)
[2021-04-22] MEDS: LACTOBACILLUS RHAMNOSUS GG 1 CAPSULE. PO SCH ×2 (08:46→20:55)
--- NOTE | 2021-04-22 09:11 | PDOC ---
Exam Note: Shubham Note: This is late entry for 04/21/2021. Please also refer to the separate dictated note~for this date of service dictated separately.~Patient seen individually. Discussed the patient with Nursing staff reviewed the chart.~Reviewed interim history and current functioning. Reviewed vital signs,~Labs/ Radiology~and curre nt medications noted below. Continue current treatment with the changes noted in the dictated addendum note Assessment: Vital Signs/I&O: Vital Signs Date Time Temp Pulse Resp B/P (MAP) Pulse Ox O2 Delivery O2 Flow Rate FiO2 04/22/21 08:46 76 150/79 04/22/21 05:02 98.2 18 96 Room Air I & O 04/21/21 04/21/21 04/22/21 15:00 23:00 07:00 Intake Total 480 ml 340 ml 1400 ml Balance 480 ml 340 ml 1400 ml Labs: Laboratory Tests Test 04/21/21 12:12 04/21/21 17:12 04/21/21 20:48 04/22/21 05:57 Glucose (Fingerstick) 105 mg/dL (70-99) H 115 mg/dL (70-99) H 119 mg/dL (70-99) H Sodium Level 146 mmol/L (136-145) H Potassium Level 3.9 mmol/L (3.5-5.1) Chloride Level 116 mmol/L (98-107) H Carbon Dioxide Level 17 mmol/L (21-32) L Anion Gap 13 (6-14) Blood Urea Nitrogen 56 mg/dL (7-20) H Creatinine 1.3 mg/dL (0.6-1.0) H Estimated GFR (Cockcroft-Gault) 39.6 Glucose Level 111 mg/dL (70-99) H Calcium Level 8.8 mg/dL (8.5-10.1) Test 04/22/21 07:44 Glucose (Fingerstick) 112 mg/dL (70-99) H Current Medications: Meds: Current Medications Medications (Trade) Dose Ordered Sig/Brian Route PRN Reason Start Time Stop Time Status Last Admin Dose Admin Risperidone (RisperDAL) 0.25 mg HS PO 04/21/21 21:00 04/21/21 20:47 Risperidone (RisperDAL) 0.25 mg 1X ONCE PO 04/21/21 12:00 04/21/21 12:01 DC 04/21/21 12:57 Ceftriaxone Sodium 1 gm/ Sodium Chloride 50 ml @ 100 mls/hr Q24H IV 04/21/21 14:00 04/21/21 14:21 Levofloxacin/ Dextrose 50 ml @ 50 mls/hr Q48H IV 04/21/21 15:00 04/21/21 14:59 Lactobacillus Rhamnosus (Culturelle) 1 cap BID PO 04/21/21 21:00 04/22/21 08:46 Amino Acids/ Glycerin/ Electrolytes 1,000 ml @ 80 mls/hr [id number] PRN IV SEE COMMENTS 04/21/21 16:15 04/22/21 04:25 Ondansetron HCl (Zofran) 4 mg PRN Q4HRS PRN IVP NAUSEA/VOMITING 04/22/21 05:15 04/22/21 05:47 I have reviewed the current psychotropics carefully including drug interactions. Risk benefit ratio favors no change other than as noted in my dictated progress note. Diagnosis: Problems: (1) Dementia FELIX PATEL MD Apr 22, 2021 09:11
--- NOTE | 2021-04-22 10:09 | NUR ---
NURSING: Held AM Lispro SSI, FSBS 112. Also held lisinopril 2/2 hypotension this AM.
[2021-04-22 11:16] VITALS: BP 175/77
[2021-04-22 15:48] VITALS: BP 106/64
[2021-04-22 20:15] VITALS: BP 145/91
[2021-04-22] MEDS: risperiDONE 1 MG TABLET. PO SCH (20:55)
--- NOTE | 2021-04-23 00:32 | CONS ---
DATE OF CONSULTATION: 04/21/2021 PSYCHIATRIC CONSULTATION This is a late entry, date of service, 04/21/2021, covers the elements not covered in my initial note 04/21/2021. IDENTIFYING DATA: The patient is a 80-year-old female seen in room 123, [facility] for a psychiatric consult requested by Dr. Hill on account of the patient's worsening confusion, paranoia, anxiety within the context of her medical conditions of acute kidney injury and failure to thrive. She has had a poor appetite, has appeared depressed. I have been asked to consult to make recommendations from a psychiatric standpoint for her mood and paranoia. The patient was seen individually in the evening of 04/21/2021. Discussed with MAYKEL Stallworth. Reviewed current and past records. CHIEF COMPLAINT: "Am I going to ." HISTORY OF PRESENT ILLNESS: The patient presented to the Emergency Room, referred by Dr. Hill on account of dehydration and was accompanied by her daughter. She has a history of progressive Alzheimer dementia. The patient has been living with her and other family members, having poor oral intake and poor urine output for the last 1 week. The patient has had some ongoing nausea, has appeared depressed, hopeless, helpless, but no active suicidal or homicidal ideation. PAST PSYCHIATRIC HISTORY: As above. MEDICAL HISTORY: Atrial fibrillation, arthritis, hypertension, renal failure, history of hypokalemia. PAST SURGICAL HISTORY: Colectomy, hysterectomy. She is a nonsmoker, does not use alcohol. DRUG ALLERGIES: Negative. FAMILY HISTORY: Noncontributory. SOCIAL HISTORY: She lives at home with her and used to work at [employer]. REVIEW OF SYSTEMS: Positive for tiredness. No CV, , pulmonary, eye system symptoms on review. MENTAL STATUS EXAM: The patient was seen individually in the evening of 04/21/2021. She knew it was 2020, the president was president Lorraine, admitted to feeling depressed, hopeless, quite anxious, frequently questioning nursing staff if she was going to . No active suicidal or homicidal ideation. Attention span is short. Language function intact. Short-term memory is impaired. LABORATORY DATA: Reviewed. IMPRESSION: Major depressive disorder, recurrent. 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 Dehydration. Rest as above. RECOMMENDATION: From a psychiatric standpoint, the patient has been started on Risperdal 0.25 [address] p[address] daily per Dr. Hill. She is depressed and anxious. I would suggest a trial of Zoloft 25 mg a day, increasing to 50 mg a day. It will lead this as a suggestion for Dr. Hill to consider and have a CT head done as workup of her dementia, if not done recently. Dr. Hill, thank you for the opportunity to participate in your patient's care. We will follow with you. ROBEL DR: Haris TID: [id number]
[2021-04-23 05:19] VITALS: BP 99/68
--- NOTE | 2021-04-23 05:33 | PN ---
SUBJECTIVE: She is resting fairly comfortably, not quite as hallucinatory she was yesterday. She did not have a good night's rest. We will increase her Risperdal. OBJECTIVE: VITAL SIGNS: Her blood pressure has come down to ____, respiratory rate 18, pulse 80, afebrile. GENERAL: The patient alert and oriented x 3. Speech fluent and spontaneous. The patient still a little bit incoherent at times, but markedly improved. It appears the patient does have some type of a bladder infection possible or early SIRS problem that caused her to have this change in mental status and will continue to be monitored carefully on this. Her blood sugars are also being followed. BUN and creatinine show marked improvement and she is also becoming better hydrated. Otherwise, blood pressure as indicated ____, respiratory rate 18, pulse 80, afebrile, 100% on room air. LUNGS: Diminished. CARDIOVASCULAR: Regular sinus rhythm. ABDOMEN: Soft, diffuse tenderness. No rebound or guarding. NEUROLOGIC: Much more stable than she has in the past. We will continue with PT, OT on her as well as continue to adjust her medications to help her sleep better and cut down on her hallucinatory behavior. IMPRESSION: Sepsis, urinary tract infection, metabolic change and metabolic encephalopathy, Escherichia coli infection. PLAN: As above. LAURA/LEONARD/MAEGAN DR: LAURA/salvatore TID: [id number]
[2021-04-23] MEDS: AA 3%/ELECTROLYTE-TPN SOLN/GLY 1,000 ML IV PRN (07:31)
[2021-04-23] MEDS: POTASSIUM CHLORIDE 20 MEQ TABLET.ER. PO SCH (07:32)
[2021-04-23] MEDS: LACTOBACILLUS RHAMNOSUS GG 1 CAPSULE. PO SCH ×2 (07:32→20:44)
[2021-04-23 07:35] VITALS: BP 118/69
[2021-04-23] MEDS: AA 3%/ELECTROLYTE-TPN SOLN/GLY 1,000 ML IV SCH ×2 (07:40→20:44)
[2021-04-23] MEDS: LISINOPRIL 20 MG TABLET PO SCH (07:43)
[2021-04-23] MEDS: INSULIN LISPRO 300 UNITS/3 ML VIAL. SQ SCH ×3 (08:00→17:00)
[2021-04-23] MEDS: ACETAMINOPHEN 325 MG TABLET PO PRN (10:27)
[2021-04-23 11:43] VITALS: BP 120/63
[2021-04-23] MEDS: LORazepam 0.5 MG TABLET PO PRN (15:04)
[2021-04-23 18:30] VITALS: BP 136/82
[2021-04-23] MEDS: risperiDONE 1 MG TABLET. PO SCH (20:44)
[2021-04-23 23:21] VITALS: BP 125/66
--- NOTE | 2021-04-23 23:36 | PN ---
DATE: 04/23/2021 SUBJECTIVE: The patient is feeling a little better. I think the Risperdal seems to have helped her. She is also being treated for a severe urinary tract infection as well. OBJECTIVE: VITAL SIGNS: Blood pressure 136/82, respirations 18, pulse 92, afebrile. LUNGS: Diminished. CARDIOVASCULAR: The CVR exam stable. ABDOMEN: Soft, nontender. EXTREMITIES: No clubbing, cyanosis or edema. Urine did show E. coli greater than 100,000. The patient continued to be monitored, on IV antibiotic therapy. She is also receiving IV antibiotic therapy. Dr. Jama has been kind enough to review the patient and make further evaluation on her change in mental status. IMPRESSION: Sepsis, urinary tract infection, Escherichia coli, metabolic encephalopathy, Escherichia coli infection, chronic kidney disease, stage IIIA with a BUN and creatinine coming down to 56 and 1.3. Blood sugar is slightly elevated. Sodium elevated at 146. PLAN: We will continue to monitor her accordingly. IV antibiotic therapy, PT, OT and hopefully discharge in the a.m. LAURA/RANDALL DR: Loreto TID: [id number]
[2021-04-24] MEDS: ACETAMINOPHEN 325 MG TABLET PO PRN (05:47)
[2021-04-24 06:23] VITALS: BP 121/78
[2021-04-24 06:32] LABS: BASO % 1 % (0-3); CALCIUM 8.5 mg/dL (8.5-10.1); CREATININE 0.9 mg/dL (0.6-1.0); EOS # 0.1 x10^3/uL (0.0-0.7); EOS % 2 % (0-3); GFR 60.6; HEMATOCRIT 28.3 % (36.0-47.0); HEMOGLOBIN 9.8 g/dL (12.0-15.5); LYMPH # 1.4 x10^3/uL (1.0-4.8); LYMPH % 31 % (24-48); MEAN CORPUSCULAR HEMOGLOBIN 32 pg (25-35); MEAN CORPUSCULAR HGB CONC 35 g/dL (31-37); MEAN CORPUSCULAR VOLUME 91 fL (79-100); MONO # 0.3 x10^3/uL (0.0-1.1); MONO % 7 % (0-9); NEUT # 2.7 x10^3uL (1.8-7.7); NEUT % 59 % (31-73); PLATELET COUNT 115 x10^3/uL (140-400); POTASSIUM 4.5 mmol/L (3.5-5.1); RED BLOOD COUNT 3.11 x10^6/uL (3.50-5.40); RED CELL DISTRIBUTION WIDTH 12.4 % (11.5-14.5); WHITE BLOOD COUNT 4.5 x10^3/uL (4.0-11.0)
[2021-04-24] MEDS: INSULIN LISPRO 300 UNITS/3 ML VIAL. SQ SCH (08:00)
[2021-04-24] MEDS: AA 3%/ELECTROLYTE-TPN SOLN/GLY 1,000 ML IV SCH (08:45)
[2021-04-24 09:24] VITALS: BP 121/78
[2021-04-24] MEDS: POTASSIUM CHLORIDE 20 MEQ TABLET.ER. PO SCH (09:24)
[2021-04-24] MEDS: LISINOPRIL 20 MG TABLET PO SCH (09:24)
[2021-04-24] MEDS: LACTOBACILLUS RHAMNOSUS GG 1 CAPSULE. PO SCH (09:24)
[2021-04-24] MEDS ORDERED: LORA0.5T21 PO (09:31)
[2021-04-24] MEDS ORDERED: SERT25TA PO (10:16)
[2021-04-24] MEDS: LORazepam 0.5 MG TABLET PO PRN (11:17)
--- NOTE | 2021-04-24 11:36 | NUR ---
NURSING NOTE DISCHARGE PT DISCHARGED HOME VIA WHEELCHAIR PICKED UP BY FAMILY, SCRIPT FOR ZOLOFT CALLED INTO [facility], SCRIPT FOR ATIVAN GIVEN TO PT. PT GIVEN WRITTEN AND VERBAL DISCHARGE INSTRUCTIONS BY VINH BRAR. MAYKEL MCKEON.
--- NOTE | 2021-04-24 12:01 | DISCH ---
HOME HEALTH DISCHARGE/MEDS DISCHARGE INFORMATION: Discharge Date: Apr 24, 2021 Final Diagnosis: Problems Medical Problems: (1) GALLO (acute kidney injury) Status: Acute (2) Dementia Status: Acute (3) Failure to thrive Status: Acute SEPSIS DUE TO UTI-E-COLI Condition on Discharge: Stable CODE STATUS: Code Status: Full HOME HEALTH: Face to Face: I certify this patient is under my care and that I, or a nurse practitioner or physician's physician assistant primary care working with me, had a face to face encounter that meets the physician face to face encounter requirements with this patient on APRIL 24, 2021. Medical Condition(s): Dementia, Falls Jail For: Assess Cardiopulm Status, Assess & Educate Safety, Assess/Skilled Observatio, Medication Management Physical Therapy For: Evalulation/Treatment Occupational Therapy For: Evaluation/Treatment Homebound Status Met By: Poor coordination w/ amb., Unsteady balance w/ amb, POST DISCHARGE ORDERS: Activity Instructions for Disc: Activity as tolerated Weight Bearing Status after Di: No restrictions DIET AFTER DISCHARGE: Regular CERTIFICATION STATEMENT: Certification Statement: Based on the above finding, I certify that this patient is confined to the home and needs intermittent mcfp care, physical therapy and/or speech therapy, or continues to need occupational therapy.~ This patient is under my care, and I have initiated the establishment of the plan of care.~ This patient will be followed by myself or a community physician who will periodically review the plan of care. DISCHARGE MEDICATIONS: Home Meds Reported Medications Sertraline Hcl (ZOLOFT) 25 Mg Tablet, 1 TAB PO DAILY for DEPRESSION, #30 TAB 2 Refills 04/24/21 Oxcarbazepine (OXCARBAZEPINE) 300 Mg Tablet, 1 TAB PO BID for dementia for 30 Days, #60 TAB 0 Refills 04/20/21 Lisinopril (LISINOPRIL) 20 Mg Tablet, 1 TAB PO DAILY for HTN, #30 TAB 5 Refills 04/20/21 Furosemide (FUROSEMIDE) 20 Mg Tablet, 1 TAB PO DAILY for fluid overload, #90 TAB 1 Refill 04/20/21 Potassium Chloride (KLOR-CON M20) 20 Meq Tab.er.prt, 1 TAB PO DAILY for hyp okalemia for 30 Days, #30 TAB 0 Refills 04/20/21 AMAYA PALMER MD Apr 24, 2021 12:00
--- NOTE | 2021-04-24 19:43 | DS ---
DATE OF DISCHARGE: 04/24/2021 A 80-year-old female. HOSPITAL COURSE: The patient has been having vocal outburst with people hallucinating, she is seeing and hearing people. The patient notes that she has been somewhat dehydrated, not able to eat or drink very well here in the last few days prior to admission. The patient showed severe acute on top of chronic renal failure along with hypernatremia. The patient has an ostomy, which has irritation and inflammation around the bag in the abdominal wall area. The patient in turn is noted because of her hallucinations, agitation and vocal outburst, were then brought in. She was placed on Risperdal, which seemed to really help her. Dr. Sotelo was kind enough to review the patient, he is a [facility] physician, came in and made timely notes about her care and recommended certain other things . The patient's labs showed a hemoglobin going from 12 to 9. The patient's BUN was 109, creatinine was 3.7, initially came down to 35 and 0.9. Blood sugars were monitored carefully. Cardiac enzymes were negative. The patient had a CT scan of her head done a few months ago, which was negative. Chest x-ray was negative. The patient continued to be monitored carefully on the above situations as noted. She also was noted to have a severe bladder infection of E. coli greater than 100,000 and treated with IV antibiotic therapy along with risperidone, I believe that really helped her with her change in mental status and acute metabolic encephalopathy. IMPRESSION: Acute metabolic encephalopathy, acute on top of chronic renal failure, dehydration, hyperglycemia, hypernatremia, urinary tract infection Escherichia coli. The patient will continue with present drug regimen. She will be discharged home. Followup as an outpatient. Home health to be ordered and make further evaluation on her as indicated. LAURA/PURVI/BERENICE DR: Loreto TID: [id number]
== END 2021-04-24 11:39 | disposition home health service (06) | DRG 871 ==
LOC: ER 12:43 → 1 SOUTH 15:08
PROVIDERS: ADMIT Family Medicine; ATTEND Family Medicine
DX: A41.9 Sepsis, unspecified organism (principal); G93.41 Metabolic encephalopathy; E87.0 Hyperosmolality and hypernatremia; N17.9 Acute kidney failure, unspecified; R64 Cachexia; F41.9 Anxiety disorder, unspecified; M19.90 Unspecified osteoarthritis, unspecified site; B96.20 Unspecified Escherichia coli [E. coli] as the cause of diseases classified elsewhere; E86.0 Dehydration; F02.80 Dementia in other diseases classified elsewhere, unspecified severity, without behavioral disturbance, psychotic disturbance, mood disturbance, and anxiety; G30.9 Alzheimer's disease, unspecified; I12.9 Hypertensive chronic kidney disease with stage 1 through stage 4 chronic kidney disease, or unspecified chronic kidney disease; I48.91 Unspecified atrial fibrillation; N18.31 Chronic kidney disease, stage 3a; N30.90 Cystitis, unspecified without hematuria; Z90.710 Acquired absence of both cervix and uterus; R73.9 Hyperglycemia, unspecified
CPT/HCPCS: 36415; 71045; 80048; 80053; 81001; 82947; 83880; 84484; 85025; 87077; 87086; 87186; 93005; 96360; 96361; J0696; J1956; J2405; 97530; 99291-25; J7030

== ENCOUNTER 2021-05-27 14:24 | Emergency (ER) | payer OTHER ==
[~2021-05-27] VITALS: Ht 157.5 cm; Wt 57.7 kg
[2021-05-27] MEDS: IV NORMAL SALINE 1,000ML 1,000 ML IV ONE (14:00)
[~2021-05-27 14:24] MED LIST changes: +FURO20TA3 PO; -IOHEXOL 240 MG/ML 50ML VIAL. ONE; +LISI20TA18 PO; +LORA0.5T21 PO; +OXCA300T19 PO; +POTA20TA4 PO; +SERT25TA PO
--- NOTE | 2021-05-27 15:36 | EKG ---
[address] [address] Test Date: 2021-05-27 Test Time: 15:26:55 Pat Name: JUAN GARCÍA Department: Room: Gender: F Pricing Intern: SLADE : 1940 Requested By: DILAN REAGAN Order Number: [id number] Reading MD: Measurements Intervals [place] Rate: 81 P: 90 IN: 204 QRS: 66 QRSD: 86 T: 51 QT: 356 QTc: 414 Interpretive Statements SINUS RHYTHM NORMAL ECG RI6.02 No previous ECG available for comparison
--- NOTE | 2021-05-27 15:59 | RAD ---
CT HEAD AND C-SPINE WO History: Weakness, fall, pain. Comparison: 01/07/2021 Technique: Noncontrast CT of the head and cervical spine. Findings: CT HEAD: There is no evidence for intracranial mass or hemorrhage. There is no hydrocephalus or midline shift. No abnormal extra-axial fluid collections are present. Arellano/white matter differentiation is preserved. The visualized paranasal sinuses and mastoid air cells are clear. The skull and scalp are within normal limits. CT CERVICAL SPINE: There is no evidence for fracture in the cervical spine. 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 Minimal anterolisthesis of C3-C4 and C5. Advanced multilevel cervical facet hypertrophy. Moderate multilevel degenerative disc disease. No destructive osseous lesions are seen. Limited evaluation of the soft tissues of the neck and of the upper chest is unremarkable. Impression: 1. No acute intracranial findings. 2. No acute osseous abnormality of the cervical spine. ------- Exposure: One or more of the following individualized dose reduction techniques were utilized for thi s examination: 1. Automated exposure control 2. Adjustment of the mA and/or kV according to patient size 3. Use of iterative reconstruction technique. Electronically signed by: Jorge A Vargas MD (05/27/2021 3:57 PM) [facility]
--- NOTE | 2021-05-27 16:04 | PHYS DOC ---
Past History Past Medical History: A-Fib, Anxiety, Arthritis, Dementia, Hypertension, Renal Failure, Other Additional Past Medical Histor: Hypokalemia Past Medical History Limited secondary to dementia Past Surgical History: Colectomy, Hysterectomy Additional Past Surgical Histo: uterine cancer, colon resection, colostomy Past Surgical History Limited secondary to dementia Smoking: Non-smoker Alcohol Use: None Drug Use: None Social History Limited secondary to dementia General Adult EDM: Chief Complaint: DIZZY/LIGHT HEADED HPI: HPI: 80-year-old female with past medical history of dementia presents with daughter with report of feeling "tired, weak, and shaky" x 2-3 days. Patient's daughter reports patient recently started on antibiotic for UTI for the past several days. Daughter also reports concerned that patient has not been sleeping despite use of Xanax and trazodone. Patient spouse recently 2 weeks ago. Patient also with a fall on Thursday and has subsequently been complaining of lower back pain. Denies use of blood thinners. Denies fever or chills. History of present illness limited secondary to dementia. Review of Systems: Review of Systems: Constitutional: Denies fever or chills Respiratory: Denies cough or shortness of breath Cardiovascular: Denies chest pain or palpitations GI: Denies abdominal pain, nausea, or vomiting : Denies dysuria Musculoskeletal: Reports lower back pain Integument: Denies laceration; reports bruising to right upper arm Neurologic: Denies headache Review of systems limited secondary to dementia Current Medications: Current Meds: Current Medications Medications (Trade) Dose Ordered Sig/[facility] Start Time Stop Time Status Last Admin Dose Admin Sodium Chloride 1,000 ml @ 1,000 mls/hr 1X ONCE 05/27/21 15:30 05/27/21 16:29 Allergies: Allergies: Allergies Coded Allergies Type Severity Reaction Last Updated Verified No Known Drug Allergies 10/05/19 No Physical Exam: PE: Constitutional: Elderly, well nourished, no acute distress, non-toxic appearance HENT: Normocephalic, atraumatic Eyes: PERRL, EOMI, conjunctiva normal, no discharge Neck: Normal range of motion, no tenderness, supple Lungs & Thorax: No respiratory distress, equal chest rise and fall Abdomen: Soft, no tenderness, no guarding/rebound tenderness/distention Skin: Warm, dry, no erythema, healing ecchymosis noted to anterior right upper arm Back: No midline tenderness, bilateral paraspinal tenderness noted, no CVA tenderness Extremities: No tenderness, ROM intact, no edema Neurologic: Alert and oriented X name only, no focal deficits noted Psychologic: Affect normal, judgment abnormal Current Patient Data: Vital Signs: Vital Signs Date Time Temp Pulse Resp B/P (MAP) Pulse Ox O2 Delivery O2 Flow Rate FiO2 05/27/21 15:03 98.2 85 18 103/54 97 Room Air EKG: EKG: @1526 NSR at 81bpm, NO ST elevation, QRS 86ms, QT/QTc 356/414ms, t wave inversion V1-V2 Radiology/Procedures: Radiology/Procedures: PROCEDURE: PORTABLE CHEST 1V XR CHEST 1V 05/27/2021 3:59 PM INDICATION: Weakness COMPARISON: 04/20/2021 TECHNIQUE: Portable frontal view of the chest is provided. FINDINGS: The cardiomediastinal silhouette is within normal limits. Lungs are clear. There are no significant pleural effusions. There is no pulmonary vascular congestion. No pneumothorax. No suspicious osseous abnormality. IMPRESSION: There is no acute cardiopulmonary process. Electronically signed by: Nathalie Chase MD (05/27/2021 4:08 PM) [id number] PROCEDURE: CT HEAD AND CERVICAL SPINE WO CT HEAD AND C-SPINE WO History: Weakness, fall, pain. Comparison: 01/07/2021 Technique: Noncontrast CT of the head and cervical spine. Findings: CT HEAD: There is no evidence for intracranial mass or hemorrhage. There is no hydrocephalus or midline shift. No abnormal extra-axial fluid collections are present. Arellano/white matter differentiation is preserved. The visualized paranasal sinuses and mastoid air cells are clear. The skull and scalp are within normal limits. CT CERVICAL SPINE: There is no evidence for fracture in the cervical spine. 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 Minimal anterolisthesis of C3-C4 and C5. Advanced multilevel cervical facet hypertrophy. Moderate multilevel degenerative disc disease. No destructive osseous lesions are seen. Limited evaluation of the soft tissues of the neck and of the upper chest is unremarkable. Impression: 1. No acute intracranial findings. 2. No acute osseous abnormality of the cervical spine. ------- Exposure: One or more of the following individualized dose reduction techniques were utilized for this examination: 1. Automated exposure control 2. Adjustment of the mA and/or kV according to patient size 3. Use of iterative reconstruction technique. Electronically signed by: Jorge A Vargas MD (05/27/2021 3:57 PM) [facility] PROCEDURE: LUMBAR SPINE 2-3V XR LUMBAR SPINE 2-3V Clinical Indication: Reason: back pain sp fall / Spl. Instructions: / History: Comparison: CT lumbar spine without contrast January 07, 2021. Findings: The sacral iliac joints are symmetric. There is suture material in the right pelvis. There is stable grade 1 anterolisthesis of L5 on S1. Alignment is otherwise maintained. Mild disc space narrowing of L1/L2 and L5/S1. No acute fracture is identified. IMPRESSION: 1. No acute compression fracture is identified. 2. Stable alignment. Electronically signed by: Jaquan Figueroa MD (05/27/2021 4:24 PM) [facility] Heart Score: C/O Chest Pain: N/A Course & Med Decision Making: Course & Med Decision Making Pertinent Labs and Imaging studies reviewed. (See chart for details) Patient presents with report of feeling tired, weak, and shaky. History of recent fall. Vital signs stable upon arrival. Patient currently denying any complaint. EKG stable. Labs obtained and posted to chart. Chest x-ray without acute process. CT head negative. X-ray of lumbar spine without acute fracture or dislocation. Patient stable for discharge with outpatient follow-up with PCP. Advised to follow with PCP regarding possible adjustment of medications for insomnia. Discussed findings and plan with patient and daughter, who acknowledge understanding and agreement. Kenneth Disclaimer: Kenneth Disclaimer: This electronic medical record was generated, in whole or in part, using a voice recognition dictation system. Departure Departure: Impression: Primary Impression: Fall Qualified Codes: W19.XXXA - Unspecified fall, initial encounter Additional Impressions: Back pain Qualified Codes: M54.5 - Low back pain History of dementia Insomnia Qualified Codes: G47.00 - Insomnia, unspecified Disposition: HOME / SELF CARE / HOMELESS Condition: STABLE Referrals: AMAYA PALMER MD (PCP) Patient Instructions: Back Pain, Adult, [id number], Dementia, [id number], Fall Prevention and Home Safety, [id number], Insomnia Additional Instructions: Please continue previously prescribed antibiotics. Discuss problems sleeping with your family doctor for possible adjustment of medications. Take Tylenol as needed for pain. ICE area of discomfort 20 min on then leave off next 20 mins. Repeat several times daily for next few days. DILAN REAGAN DO May 27, 2021 16:04
--- NOTE | 2021-05-27 16:10 | RAD ---
XR CHEST 1V 05/27/2021 3:59 PM INDICATION: Weakness COMPARISON: 04/20/2021 TECHNIQUE: Portable frontal view of the chest is provided. FINDINGS: The cardiomediastinal silhouette is within normal limits. Lungs are clear. There are no significant pleural effusions. There is no pulmonary vascular congestion. No pneumothora x. No suspicious osseous abnormality. IMPRESSION: There is no acute cardiopulmonary process. Electronically signed by: Nathalie Chase MD (05/27/2021 4:08 PM) [id number]
--- NOTE | 2021-05-27 16:26 | RAD ---
XR LUMBAR SPINE 2-3V Clinical Indication: Reason: back pain sp fall / Spl. Instructions: / History: Comparison: CT lumbar spine without contrast January 07, 2021. Findings: The sacral iliac joints are symmetric. There is suture material in the right pelvis. There is stable grade 1 anterolisthesis of L5 on S1. Alignment is otherwise maintained. Mild disc space narrowing of L1/L2 and L5/S1. No acute fracture is identified. IMPRESSION: 1. No acute compression fracture is identified. 2. Stable alignment. Electronically signed by: Jaquan Figueroa MD (05/27/2021 4:24 PM) [facility]
[2021-05-27 17:01] LABS: BASO % 0 % (0-3); EOS % 0 % (0-3); HEMATOCRIT 30.6 % (36.0-47.0); HEMOGLOBIN 10.2 g/dL (12.0-15.5); LYMPH # 1.2 x10^3/uL (1.0-4.8); LYMPH % 20 % (24-48); MEAN CORPUSCULAR HEMOGLOBIN 31 pg (25-35); MEAN CORPUSCULAR HGB CONC 33 g/dL (31-37); MEAN CORPUSCULAR VOLUME 94 fL (79-100); MONO # 0.5 x10^3/uL (0.0-1.1); MONO % 9 % (0-9); NEUT % 70 % (31-73); PLATELET COUNT 181 x10^3/uL (140-400); RED BLOOD COUNT 3.27 x10^6/uL (3.50-5.40); RED CELL DISTRIBUTION WIDTH 15.1 % (11.5-14.5); WHITE BLOOD COUNT 5.7 x10^3/uL (4.0-11.0)
[2021-05-27 17:04] LABS: CALCIUM 8.9 mg/dL (8.5-10.1); CREATININE 1.9 mg/dL (0.6-1.0); GFR 25.6; POTASSIUM 4.2 mmol/L (3.5-5.1)
[2021-05-27 17:19] LABS: ALBUMIN 3.7 g/dL (3.4-5.0); MAGNESIUM 1.6 mg/dL (1.8-2.4); TOTAL BILIRUBIN 0.2 mg/dL (0.2-1.0); TOTAL PROTEIN 7.4 g/dL (6.4-8.2)
[2021-05-27 17:46] LABS: BILIRUBIN,URINE NEG (NEG); CLARITY,URINE CLEAR; COLOR,URINE YELLOW; GLUCOSE,URINE NEG (NEG); UROBILINOGEN,URINE 0.2 mg/dL (0.2 mg/dL)
[2021-05-27 17:47] LABS: NITRITE,URINE NEG (NEG); RBC,URINE 0 /HPF (0-2)
[2021-05-27 17:48] LABS: BACTERIA,URINE FEW /HPF (0-FEW); SQUAMOUS EPITHELIAL CELL,UR OCC /LPF
[2021-05-27 18:01] VITALS: BP 110/61
== END 2021-05-27 18:17 | disposition home or self-care (01) ==
LOC: ER 14:24
DX: S40.021A Contusion of right upper arm, initial encounter (principal); M54.5 Low back pain; G47.00 Insomnia, unspecified; F03.90 Unspecified dementia, unspecified severity, without behavioral disturbance, psychotic disturbance, mood disturbance, and anxiety; I48.91 Unspecified atrial fibrillation; F41.9 Anxiety disorder, unspecified; M19.90 Unspecified osteoarthritis, unspecified site; I12.9 Hypertensive chronic kidney disease with stage 1 through stage 4 chronic kidney disease, or unspecified chronic kidney disease; N18.9 Chronic kidney disease, unspecified; Z87.440 Personal history of urinary (tract) infections; W18.39XA Other fall on same level, initial encounter; Y93.89 Activity, other specified; Y92.89 Other specified places as the place of occurrence of the external cause; Y99.8 Other external cause status
CPT/HCPCS: 36415; 70450; 71045; 72100; 72125; 80053; 81001; 82553; 83605; 83735; 84484; 85025; 87086; 93005; 99285-25

== ENCOUNTER 2021-06-13 08:58 | Emergency (ER) | payer OTHER ==
[~2021-06-13] VITALS: Ht 157.5 cm; Wt 63.0 kg
--- NOTE | 2021-06-13 10:08 | PHYS DOC ---
Past History Past Medical History: A-Fib, Anxiety, Arthritis, Dementia, Hypertension, Renal Failure, Other Additional Past Medical Histor: Hypokalemia (KODAK NATH APRN) Past Surgical History: Colectomy, Hysterectomy Additional Past Surgical Histo: uterine cancer, colon resection, colostomy (KODAK NATH APRN) Smoking: Non-smoker Alcohol Use: None Drug Use: None (KODAK NATH APRN) Adult General Chief Complaint Chief Complaint: LACERATION/AVULSION HPI HPI Patient is a 72-year-old female patient presents with laceration to face following a fall. Patient reports she had been at home last night, when she had called her states she thinks the cat had knocked him from her however she does not know. Reports episode occurred at 1230 this morning. Patient son reportedly had found the patient after the fall, patient was awake, or he was not sure if patient had a brief interview mental status or not. This patient has had a few falls recently, and reports she is patient was bleeding quite a bit from her wound last night. Daughter had seen patient this morning, brought patient to the emergency room with concern that she is still bleeding. Patient is not on any blood thinners. Patient denies any nausea, vomiting, diarrhea denies any discomfort other than discomfort in her eye. Denies any visual changes. (KODAK NATH APRN) Review of Systems Review of Systems Constitutional: Denies fever or chills [] Eyes: Denies change in visual acuity, redness, or eye pain [] reports pain around her eye. Denies any blurry vision. HENT: Denies nasal congestion or sore throat [] Respiratory: Denies cough or shortness of breath [] Cardiovascular: No additional information not addressed in HPI [] GI: Denies abdominal pain, nausea, vomiting, bloody stools or diarrhea [] : Denies dysuria or hematuria [] Musculoskeletal: Denies back pain or joint pain [] Integument: Denies rash[] reports laceration to face Neurologic: Denies headache, focal weakness or sensory changes [] Endocrine: Denies polyuria or polydipsia [] All other systems were reviewed and found to be within normal limits, except as documented in this note. (KODAK NATH APRN) Allergies Allergies Allergies Coded Allergies Type Severity Reaction Last Updated Verified morphine Allergy Unknown 06/13/21 Yes (KODAK NATH APRN) Physical Exam Physical Exam Constitutional: Well developed, well nourished, no acute distress, non-toxic appearance. [] HENT: Normocephalic, bilateral external ears normal, oropharynx moist, no oral exudates, nose normal. [] Eyes: PERRLA, EOMI, conjunctiva normal, no discharge. [] Visual acuity intact, patient able to identify objects, persons with affected eye. No erythema noted to sclera. Full ROM to eye. Neck: Normal range of motion, no tenderness, supple, no stridor. [] Cardiovascular:Heart rate regular rhythm, no murmur [] Lungs & Thorax: Bilateral breath sounds clear to auscultation [] Abdomen: Bowel sounds normal, soft, no tenderness, no masses, no pulsatile masses. [] Skin: Warm, dry, no erythema, no rash. [] 3 cm laceration to right lateral eye, superior to eye, along eyelid. Back: No tenderness, no CVA tenderness. [] Extremities: No tenderness, no cyanosis, no clubbing, ROM intact, no edema. [] Neurologic: Alert and oriented X 3, normal motor function, normal sensory function, no focal deficits noted. [] Psychologic: Affect normal, judgement normal, mood normal. [] (KODAK NATH APRN) Current Patient Data Vital Signs Vital Signs Date Time Temp Pulse Resp B/P (MAP) Pulse Ox O2 Delivery O2 Flow Rate FiO2 06/13/21 09:43 98.1 73 18 87/44 97 Room Air (KODAK NATH APRN) EKG EKG [] (KODAK NATH APRN) Radiology/Procedures Radiology/Procedures PROCEDURE: CT HEAD AND CERVICAL SPINE WO EXAM: Head an cervical spine CT without contrast. HISTORY: Fall. Laceration. TECHNIQUE: Computed tomographic images of the head and cervical spine were obtained without contrast. *One or more of the following individualized dose reduction techniques were utilized for this examination: 1. Automated exposure control. 2. Adjustment of the mA and/or kV according to patient size. 3. Use of iterative reconstruction technique. COMPARISON: 05/27/2021. FINDINGS: Head: There is no intracranial hemorrhage. There is no mass effect or midline shift. There is no hydrocephalus. There are subtle areas of hypodensity within the cerebral white matter, likely due to chronic small vessel disease. There are few calcifications within the cerebral hemispheres. There is moderate mucosal thickening involving the sphenoid sinus. There is partial visualization of a right periorbital soft tissue hematoma and foci of soft tissue gas due to a laceration. There are fluid levels within the right greater than left maxillary sinuses, not completely included on the [id number] and possibly due to sinusitis or hemorrhage given a history of recent trauma. There is lucency traversing the posterior right maxillary sinus wall which may be physiologic or due to a nondisplaced fracture. No calvarial lesion is seen. Cervical spine: There is mild multilevel degenerative listhesis. There is degenerative endplate remodeling with disc space narrowing, osteophytosis and facet arthropathy at multiple levels. There are few osseous hemangiomas and osseous lucencies likely due to bone demineralization. No convincing lytic or sclerotic osseous lesion is seen. The combination of degenerative changes results in moderate left foraminal stenosis at C2-C3, severe right greater than left foraminal stenosis at C3-C4, and moderate right foraminal stenosis at C4- C5. There is mild biapical pleural parenchymal scarring. There is a small amount of fluid within the right mastoid air cells. IMPRESSION: 1. No acute intracranial finding or evidence of acute cervical spine trauma. 2. Partial visualization of a right periorbital soft tissue hematoma and soft tissue gas due to a laceration injury. There is fluid within the adjacent right maxillary sinus which may be due to sinusitis or hemorrhage in the setting of maxillofacial bone trauma. Correlate with a dedicated maxillofacial bone CT if there is clinical concern. 3. Multilevel degenerative change involving the cervical spine, resulting in stenosis as described above. 4. Bilateral cerebral white matter changes, likely due to chronic small vessel disease. Electronically signed by: Freya Antunez MD (06/13/2021 10:45 AM) [id number] [] (KODAK NATH APRN) Heart Score C/O Chest Pain: N/A Risk Factors: Risk Factors: DM, Current or recent (<one month) smoker, HTN, HLP, family history of CAD, obesity. Risk Scores: Risk Factors: DM, Current or recent (<one month) smoker, HTN, HLP, family history of CAD, obesity. (KODAK NATH APRN) Course & Med Decision Making Course & Med Decision Making Pertinent Labs and Imaging studies reviewed. (See chart for details) [] Given history of fall, with head injury noted with patient, will image brain and C-spine to rule out any acute pathology.. Wound continues with minimal bleeding. Will suture wound at this time. (KODAK NATH APRN) Course & Med Decision Making I was the Attending physician on the above date of service of this patient. This patient was evaluated, examined, treated, and dispositioned from the emergency department by the mid-level practitioner. Although I was working at the time , no assistance was requested. Electronically signed, Gerald Garcia DO (GERALD GARCIA DO) Dragon Disclaimer Dragon Disclaimer This electronic medical record was generated, in whole or in part, using a voice recognition dictation system. (KODAK NATH APRN) Laceration Repair Lac Repair Indication: []laceration Procedure: The patient was placed in the appropriate position and anesthesia around the laceration using 3 ml 1% lidocaine without Epi]. The area was then cleansed]. The laceration was closed with (3) 5/0 nylon simple interrupted sutures The wound area was then dressed with gauze. Total repaired wound length: [3 cm Other Items: none The patient tolerated the procedure [well]. Complications: [NO complications ]. (KODAK NATH APRN) Departure Departure: Impression: Primary Impression: Fall Additional Impression: Laceration of face Disposition: HOME / SELF CARE / HOMELESS Condition: STABLE Referrals: AMAYA PALMER MD (PCP) Patient Instructions: Facial Laceration Additional Instructions: As discussed, the stitches should be removed in 7 days. This can be done at this emergency room or to the primary care office. May give Tylenol as needed for pain. Try to avoid picking at or rubbing at the area where the stitches are. You likely have a bruise for a few days around her eye. You may put an ice pack over this to help with the pain and swelling as well. Follow-up with your primary care provider as needed. Make sure you use your walker at home to prevent falls. Problem Qualifiers Primary Impression: Fall Encounter type: initial encounter Qualified Codes: W19.XXXA - Unspecified fall, initial encounter Additional Impression: Laceration of face Encounter type: initial encounter Qualified Codes: S01.81XA - Laceration without foreign body of other part of head, initial encounter KODAK NATH APRN Jun 13, 2021 10:08 GERALD GARCIA DO Jun 14, 2021 07:10
--- NOTE | 2021-06-13 10:47 | RAD ---
EXAM: Head an cervical spine CT without contrast. HISTORY: Fall. Laceration. TECHNIQUE: Computed tomographic images of the head and cervical spine were obtained without contrast. *One or more of the following individualized dose reduction techniques were utilized for this examina tion: 1. Automated exposure control. 2. Adjustment of the mA and/or kV according to patient size. 3. Use of iterative reconstruction technique. COMPARISON: 05/27/2021. FINDINGS: Head: There is no intracranial hemorrhage. There is no mass effect or midline shift. There is no hydr ocephalus. 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 There are few calcifications within the cerebral hemispheres. There is mode rate mucosal thickening involving the sphenoid sinus. There is partial visualization of a right perio rbital soft tissue hematoma and foci of soft tissue gas due to a laceration. There are fluid levels w ithin the right greater than left maxillary sinuses, not completely included on the [id number]-sa-nutc and possibly due to sinusitis or hemorrhage given a history of recent trauma. There is lucency traversin g the posterior right maxillary sinus wall which may be physiologic or due to a nondisplaced fracture . No calvarial lesion is seen. Cervical spine: There is mild multilevel degenerative listhesis. There is degenerative endplate remod eling with disc space narrowing, osteophytosis and facet arthropathy at multiple levels. There are fe w osseous hemangiomas and osseous lucencies likely due to bone demineralization. No convincing lytic or sclerotic osseous lesion is seen. The combination of degenerative changes results in moderate left foraminal stenosis at C2-C3, severe right greater than left foraminal stenosis at C3-C4, and moderat e right foraminal stenosis at C4-C5. There is mild biapical pleural parenchymal scarring. There is a small amount of fluid within the right mastoid air cells. IMPRESSION: 1. No acute intracranial finding or evidence of acute cervical spine trauma. 2. Partial visualization of a right periorbital soft tissue hematoma and soft tissue gas due to a lac eration injury. There is fluid within the adjacent right maxillary sinus which may be due to sinusiti s or hemorrhage in the setting of maxillofacial bone trauma. Correlate with a dedicated maxillofacial bone CT if there is clinical concern. 3. Multilevel degenerative change involving the cervical spine, resulting in stenosis as described ab ove. 4. Bilateral cerebral white matter changes, likely due to chronic small vessel disease. Electronically signed by: Freya Antunez MD (06/13/2021 10:45 AM) [id number]
[2021-06-13 11:27] VITALS: BP 92/50
== END 2021-06-13 11:27 | disposition home or self-care (01) ==
LOC: ER 08:58
DX: S01.81XA Laceration without foreign body of other part of head, initial encounter (principal); I10 Essential (primary) hypertension; Z90.710 Acquired absence of both cervix and uterus; W18.39XA Other fall on same level, initial encounter; Y93.89 Activity, other specified; Y92.89 Other specified places as the place of occurrence of the external cause; Y99.8 Other external cause status
CPT/HCPCS: 12013; 70450; 72125; 99285-25

== ENCOUNTER 2021-06-18 23:06 | Emergency (ER) | payer OTHER ==
[~2021-06-18] VITALS: Ht 157.5 cm; Wt 63.0 kg
[2021-06-18] MEDS ORDERED: ONDANSETRON ODT 4 MG TAB.RAPDIS ONE (23:17)
--- NOTE | 2021-06-18 23:39 | PHYS DOC ---
Past History Past Medical History: A-Fib, Anxiety, Arthritis, Dementia, Hypertension, Renal Failure, Other Additional Past Medical Histor: Hypokalemia Past Surgical History: Colectomy, Hysterectomy Additional Past Surgical Histo: uterine cancer, colon resection, colostomy Smoking: Non-smoker Alcohol Use: None Drug Use: None General Adult HPI: HPI: ...."... I don't know what going on.. I just don't like it.... dizzy.. and I vomited...black shit..." ".. God damn it.. shit.. shit.. " Patient is a 80 year old female who presents with above hx and complaints of mental status change. Pt. has appeared to vomit blood , with hypotensive 80/40 on arrival and tachycardia. Patient reportedly not on any anticoagulants or antiplatelet drugs per daughter and her current med list. Patient has had a recent fall last week where she received a contusion and laceration right side of the head .. Pt. has been having increased falls the past year. Pt. has completed COVID vaccinations. Pt. Denies fall tonight, but has been very weak and dizzy. Pt.vomited black blood here right after arrival. Patient has past medical history of A. fib, anxiety, insomnia, COPD, arthritis, dementia, hyper tension, renal failure, hypokalemia, uterine cancer, colon cancer and resection, colostomy,. Patient has had hysterectomy, colectomy,. Patient evaluated for head trauma on 06/13/21 after a trip fall over the cat and her dog Yusuf. Pt. at that time had external hematoma and laceration to Rt. side of head which was repaired. CT of head and neck at that time negative for acute cervical and cerebral truama. The did have some Rt. maxillary sinusitis. The patient normally follows with Dr. Hill. Pt. Daughter is [phone]. Review of Systems: Review of Systems: Constitutional: Denies fever or chills Eyes: Denies change in visual acuity HENT: Denies nasal congestion or sore throat Respiratory: Denies cough or shortness of breath Cardiovascular: Denies chest pain or edema GI: Complains of epigastric abdominal pain, nausea, vomiting blood. : Denies dysuria Musculoskeletal: Denies back pain or joint pain Integument: Denies rash Neurologic: Denies headache, focal weakness or sensory changes Endocrine: Denies polyuria or polydipsia Lymphatic: Denies swollen glands Psychiatric: Denies depression or anxiety Family History: Family History: Noncontributory presentation. Current Medications: Current Meds: Current Medications Medications (Trade) Dose Ordered Sig/Brian Start Time Stop Time Status Last Admin Dose Admin Ondansetron HCl (Zofran Odt) 4 mg STK-MED ONCE 06/18/21 23:17 06/18/21 23:17 DC Allergies: Allergies: Allergies Coded Allergies Type Severity Reaction Last Updated Verified morphine Allergy Unknown 06/13/21 Yes Physical Exam: PE: Constitutional: in acute distress,ill in appearance. [] HENT: Normocephalic, contusion and laceration right side of face and right eyebrow. Laceration site has been sutures 3 sutures. Site appears to be healing well., bilateral external ears normal, oropharynx moist, no oral exudates, nose normal. [] Eyes: PERRLA, EOMI, conjunctiva pale, no discharge. [] Neck: Normal range of motion, no tenderness, supple, no stridor. [] Cardiovascular: Irregular heart rate, irregular regular rhythm, no murmur. PMI to left Lungs & Thorax: Bilateral breath sounds equal apex on auscultation [] Abdomen: Bowel sounds hyperactive , soft, epigastric tenderness, no masses, no pulsatile masses. Old surgery scars. Rebound right upper quadrant. Skin: Warm, dry, no erythema, no rash. Poor turgor. Pale. Back: No tenderness, no CVA tenderness. [] Extremities: No tenderness, no cyanosis, no clubbing, ROM intact, no edema. No cording appreciated. Arthritis changes Neurologic: Alert and oriented X 3, moves all extremities on request, does have distal sensory,, no focal deficits noted. [id number] Psychologic: Affect anxious, judgement normal, mood normal. [] Current Patient Data: Labs: Laboratory Tests Test 06/18/21 23:27 Glucose (Fingerstick) 158 mg/dL (70-99) H EKG: EKG: My interpretation EKG shows a supraventricular tachycardia 101 bpm. [] Overall morphology of EKG appears to be A. fib. No findings of acute STEMI with contralateral changes. Time of EKG is 2339 Radiology/Procedures: Radiology/Procedures: Pending[] Heart Score: C/O Chest Pain: Yes HEART Score for Chest Pain: HEART Score for Chest Pain Response (Comments) Value History Moderately Suspicious 1 ECG Nonspecific Repolarizatio 1 Age > 65 2 Risk Factors 1 or 2 Risk Factors 1 Troponin < Normal Limit 0 Total 5 Risk Factors: Risk Factors: DM, Current or recent (<one month) smoker, HTN, HLP, family hi story of CAD, obesity. Risk Scores: Score 0 - 3: 2.5% MACE over next 6 weeks - Discharge Home Score 4 - 6: 20.3% MACE over next 6 weeks - Admit for Clinical Observation Score 7 - 10: 72.7% MACE over next 6 weeks - Early Invasive Strategies Course & Med Decision Making: Course & Med Decision Making Pertinent Labs and Imaging studies reviewed. (See chart for details) Discussed presentation, testing and tx. plan with Dr. Peters shortly after arrival. Has agreed to transfer to [facility]. Possible GI consult once hemodynamically stable. Get CT / Xrays when pt. BP stabilizes. Procedure note- Sutures removed from Rt. eyebrow x 3. Critical Care 90 min. Impression: 1. Acute Upper GI Bleeding 2. Nausea and Vomiting 3. Hypotensive 4. Anemia 7.9 5. DM Glucose 172 6. Acute Renal Failure- BUN 78/Creat 2.8 7. Metabolic Acidosis 8. Elevate Lipase 1041 9. Recent Fall - Head Trauma 10. Suture Rt. eyebrow- (Removed- in more than 6 days) COVID rapid - is negative tonight Completed COVID vaccination. 12/29 and 01/17 Moderna [] Kenneth Disclaimer: Kenneth Disclaimer: This electronic medical record was generated, in whole or in part, using a voice recognition dictation system. Departure Departure: Referrals: AMAYA HILL MD (PCP) Kenneth Disclaimer This chart was dictated in whole or in part using Voice Recognition software in a busy, high-work load, and often noisy Emergency Department environment. It may contain unintended and wholly unrecognized errors or omissions. BHUPINDER STEWART MD Jun 18, 2021 23:39
[2021-06-18] MEDS ORDERED: IV NORMAL SALINE 1,000ML 1,000 ML IV SCH (23:45)
--- NOTE | 2021-06-18 23:54 | EKG ---
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
[2021-06-19 00:02] LABS: BASO # 0.1 x10^3/uL (0.0-0.2); BASO % 1 % (0-3); EOS # 0.1 x10^3/uL (0.0-0.7); EOS % 1 % (0-3); HEMATOCRIT 24.8 % (36.0-47.0); HEMOGLOBIN 7.9 g/dL (12.0-15.5); LYMPH # 1.4 x10^3/uL (1.0-4.8); LYMPH % 27 % (24-48); MEAN CORPUSCULAR HEMOGLOBIN 31 pg (25-35); MEAN CORPUSCULAR HGB CONC 32 g/dL (31-37); MEAN CORPUSCULAR VOLUME 98 fL (79-100); MONO # 0.3 x10^3/uL (0.0-1.1); MONO % 6 % (0-9); NEUT # 3.3 x10^3uL (1.8-7.7); NEUT % 65 % (31-73); PLATELET COUNT 163 x10^3/uL (140-400); RED BLOOD COUNT 2.54 x10^6/uL (3.50-5.40); RED CELL DISTRIBUTION WIDTH 17.9 % (11.5-14.5); WHITE BLOOD COUNT 5.1 x10^3/uL (4.0-11.0)
[2021-06-19 00:15] LABS: ALBUMIN 3.5 g/dL (3.4-5.0); CALCIUM 8.1 mg/dL (8.5-10.1); CREATININE 2.8 mg/dL (0.6-1.0); DIRECT BILIRUBIN 0.1 mg/dL (0.0-0.2); GFR 16.3; MAGNESIUM 1.3 mg/dL (1.8-2.4); POTASSIUM 3.1 mmol/L (3.5-5.1); TOTAL BILIRUBIN 0.3 mg/dL (0.2-1.0); TOTAL PROTEIN 6.4 g/dL (6.4-8.2)
[2021-06-19 00:27] LABS: BARBITURATES NEG (NEG); BENZODIAZEPINES NEG (NEG); CANNABINOIDS NEG (NEG); COCAINE NEG (NEG); METHADONE NEG (NEG); OPIATES NEG (NEG); PHENCYCLIDINE NEG (NEG)
[2021-06-19 00:28] LABS: BILIRUBIN,URINE NEG (NEG); CLARITY,URINE CLEAR; COLOR,URINE YELLOW; GLUCOSE,URINE NEG (NEG)
[2021-06-19 00:29] LABS: BACTERIA,URINE 0 /HPF (0-FEW); NITRITE,URINE NEG (NEG); RBC,URINE 0 /HPF (0-2); UROBILINOGEN,URINE 0.2 mg/dL (0.2 mg/dL); WBC,URINE OCC /HPF (0-4)
[2021-06-19] MEDS ORDERED: ONDANSETRON ODT 4 MG TAB.RAPDIS PO ONE (00:30)
[2021-06-19 00:34] LABS: AMPHETAMINE/METHAMPHETAMINE NEG (NEG)
[2021-06-19 00:42] VITALS: BP 99/46
[2021-06-19] MEDS ORDERED: ACETAMINOPHEN 500 MG TABLET PO ONE (01:00)
[2021-06-19] MEDS ORDERED: diphenhydrAMINE 50 MG/ML VIAL IVP ONE (01:00)
[2021-06-19] MEDS ORDERED: IV RINGERS SOLUTION,LACTATED 1,000 ML IV ONE (01:30)
[2021-06-19] MEDS ORDERED: IV NORMAL SALINE 1,000ML 1,000 ML IV ONE (01:30)
== END 2021-06-19 01:40 | disposition short-term general hospital (02) ==
LOC: ER 23:06
DX: K92.2 Gastrointestinal hemorrhage, unspecified (principal); I95.9 Hypotension, unspecified; D64.9 Anemia, unspecified; E11.9 Type 2 diabetes mellitus without complications; N17.9 Acute kidney failure, unspecified; E87.2 Acidosis; Z20.822 Contact with and (suspected) exposure to COVID-19
CPT/HCPCS: 36415; 80048; 80076; 80307; 81001; 82550; 82947; 83690; 83735; 83880; 84484; 85025; 86850; 86900; 86901; 87040; 87426; 93005; 96360; 99291; 99292; C9803; J7030; Q0162; U0003; 86920

== ENCOUNTER → 2021-08-19 | Outpatient (CLI) | payer OTHER ==
[~2021-08-19] MED LIST changes: +ALPR0.25 PO; +DONE10TA7 PO; +FURO-69 PO; +OXCA600T9 PO; +PANT40TA3 PO; +POTA-121 PO; -POTA20TA4 PO; +QUET100T4 PO; +RISP1TAB88 PO; +TRAZ-120 PO
[2021-08-19 11:19] LABS: BASO # 0.1 x10^3/uL (0.0-0.2); BASO % 1 % (0-3); EOS % 1 % (0-3); HEMATOCRIT 35.8 % (36.0-47.0); HEMOGLOBIN 11.6 g/dL (12.0-15.5); LYMPH # 1.7 x10^3/uL (1.0-4.8); LYMPH % 31 % (24-48); MEAN CORPUSCULAR HEMOGLOBIN 32 pg (25-35); MEAN CORPUSCULAR HGB CONC 33 g/dL (31-37); MEAN CORPUSCULAR VOLUME 98 fL (79-100); MONO # 0.3 x10^3/uL (0.0-1.1); MONO % 5 % (0-9); NEUT # 3.6 x10^3uL (1.8-7.7); NEUT % 63 % (31-73); PLATELET COUNT 171 x10^3/uL (140-400); RED BLOOD COUNT 3.64 x10^6/uL (3.50-5.40); RED CELL DISTRIBUTION WIDTH 14.3 % (11.5-14.5); WHITE BLOOD COUNT 5.7 x10^3/uL (4.0-11.0)
[2021-08-19 11:34] LABS: ALBUMIN 4.3 g/dL (3.4-5.0); CALCIUM 8.8 mg/dL (8.5-10.1); CREATININE 1.5 mg/dL (0.6-1.0); GFR 33.5; PHOSPHORUS 4.5 mg/dL (2.6-4.7); POTASSIUM 3.3 mmol/L (3.5-5.1)
== END ==
LOC: LAB 09:42
PROVIDERS: ATTEND Family Medicine
DX: I50.23 Acute on chronic systolic (congestive) heart failure (principal); E03.9 Hypothyroidism, unspecified; E87.6 Hypokalemia; E61.1 Iron deficiency; N28.9 Disorder of kidney and ureter, unspecified
CPT/HCPCS: 36415; 80069; 82607; 83540; 83550; 85025

== ENCOUNTER 2021-09-09 11:02 | Observation (INO) | payer OTHER ==
[~2021-09-09] VITALS: Ht 157.5 cm; Wt 66.0 kg
[~2021-09-09 11:02] MED LIST changes: -ALPR0.25 PO; -DONE10TA7 PO; -FURO-69 PO; -OXCA600T9 PO; -PANT40TA3 PO; -QUET100T4 PO; -RISP1TAB88 PO; -TRAZ-120 PO
--- NOTE | 2021-09-09 11:13 | PHYS DOC ---
Past History Past Medical History: A-Fib, Anxiety, Arthritis, Dementia, Hypertension, Renal Failure, Other Additional Past Medical Histor: Hypokalemia Past Surgical History: Colectomy, Hysterectomy Additional Past Surgical Histo: uterine cancer, colon resection, colostomy Smoking: Non-smoker Alcohol Use: None Drug Use: None Adult General HPI HPI Patient is a 81-year-old female with a past medical history of A. fib, hypertension and dementia who presents from home via the request of family stating she had an episode of dizziness this morning. Denies any syncope, slurred speech, facial droop or paralysis. Denies any recent traumas, travels, illnesses, fever, chest pain, shortness of breath, abdominal pain, nausea, vomiting, dysuria, hematuria or blood in the stool. States that here in the emergency department she has no symptoms, and would prefer to go on home. Discussed with patient need for evaluation given her dizziness, at which time she said that is fine go ahead and do what ever you need to do to make sure I am okay and hurry up and send me home. Review of Systems Review of Systems Review of systems otherwise unremarkable except noted in HPI Allergies Allergies Allergies Coded Allergies Type Severity Reaction Last Updated Verified morphine Allergy Unknown 06/13/21 Yes Physical Exam Physical Exam Constitutional: Well developed, well nourished, no acute distress, non-toxic appearance. [] HENT: Normocephalic, atraumatic, bilateral external ears normal, oropharynx moist, no oral exudates, nose normal. [] Eyes: PERRLA, EOMI, conjunctiva normal, no discharge. [] Neck: Normal range of motion, no tenderness, supple, no stridor. [] Cardiovascular:Heart rate regular rhythm, no murmur [] Lungs & Thorax: Bilateral breath sounds clear to auscultation [] Abdomen: soft, no tenderness, no masses, no pulsatile masses. [] Skin: Warm, dry, no erythema, no rash. [] Back: No tenderness, no CVA tenderness. [] Extremities: No tenderness, no cyanosis, no clubbing, ROM intact, no edema. [] Neurologic: Alert and oriented X 3, normal motor function, normal sensory function, able to sit, stand and walk without issue, cranial nerves intact, no focal deficits noted. [] Psychologic: Affect normal, judgement normal, mood normal. [] EKG EKG [] Radiology/Procedures Radiology/Procedures [] Heart Score C/O Chest Pain: No Risk Factors: Risk Factors: DM, Current or recent (<one month) smoker, HTN, HLP, family history of CAD, obesity. Risk Scores: Risk Factors: DM, Current or recent (<one month) smoker, HTN, HLP, family history of CAD, obesity. Course & Med Decision Making Course & Med Decision Making Patient is a 81-year-old female who presents with a chief complaint of episode of dizziness earlier this morning but currently asymptomatic Vital signs initially notable for borderline hypotension which resolved on repeat measurements. Physical exam noted above. EKG noted above with a rate of 73, QRS of 74, QTc of 447, no STEMI. Troponin normal. Laboratory analysis notable for hypomagnesemia and hypocalcemia with thrombocytopenia which appears relatively chronic and elevated creatinine which also appears relatively chronic. Replace magnesium and calcium. Started on IV fluid. Discussed all findings with patient and recommended admission to the hospital for continued evaluation and treatment. Family grateful, verbalized understanding and agreed with plan admission. Dragon Disclaimer Dragon Disclaimer This electronic medical record was generated, in whole or in part, using a voice recognition dictation system. Departure Departure: Impression: Primary Impression: Dizziness Additional Impressions: Hypomagnesemia Hypocalcemia Elevated serum creatinine Disposition: HOME / SELF CARE / HOMELESS Admitting Physician: Edmund Peters Condition: GOOD Referrals: AMAYA PALMER MD (PCP) Patient Instructions: Dizziness Problem Qualifiers MINNIE JARAMILLO MD Sep 09, 2021 11:13
--- NOTE | 2021-09-09 11:29 | RAD ---
Single AP view of the chest. Comparison: 05/27/2021. Indication: Cardiac workup Findings: The heart is not enlarged. There is no pneumothorax or effusion. No air space or interstitial diseas e. Impression: 1. No acute cardiopulmonary process. Electronically signed by: Vinh Valle MD (09/09/2021 11:27 AM) [id number]
--- NOTE | 2021-09-09 12:00 | RAD ---
CT HEAD WITHOUT CONTRAST 09/09/2021 11:39 AM Indication: Reason: dizzy, on AC Comparison: CT head June 13, 2021 Procedure: Multidetector CT imaging of the head was performed without the administration of contrast. Findings: There is no evidence of acute intracranial hemorrhage. There is no evidence of acute territ orial infarction. Please note that CT is limited for evaluation of acute ischemia. No mass effect or midline shift is identified . The ventricles and basilar cisterns have an appropriate appearance. No abnormal extra-axial fluid collections are seen. No acute osseous changes are identified. Impression: No evidence of acute intracranial abnormality CT DOSING PQRS STATEMENT: One or more of the following individualized dose reduction techniques were utilized for this examinat ion: 1. Automated exposure control 2. Adjustment of the mA and/or kV according to patient size 3. Use of iterative reconstruction technique Electronically signed by: Jamaal Willams MD (09/09/2021 11:58 AM) [id number]
[2021-09-09 12:20] LABS: BASO % 1 % (0-3); EOS # 0.1 x10^3/uL (0.0-0.7); EOS % 2 % (0-3); LYMPH # 1.1 x10^3/uL (1.0-4.8); LYMPH % 31 % (24-48); MEAN CORPUSCULAR HEMOGLOBIN 32 pg (25-35); MEAN CORPUSCULAR HGB CONC 33 g/dL (31-37); MEAN CORPUSCULAR VOLUME 95 fL (79-100); MONO # 0.4 x10^3/uL (0.0-1.1); MONO % 11 % (0-9); NEUT % 55 % (31-73); PLATELET COUNT 116 x10^3/uL (140-400); RED BLOOD COUNT 3.16 x10^6/uL (3.50-5.40); RED CELL DISTRIBUTION WIDTH 13.4 % (11.5-14.5); WHITE BLOOD COUNT 3.5 x10^3/uL (4.0-11.0)
[2021-09-09 12:27] LABS: CALCIUM 7.6 mg/dL (8.5-10.1); CREATININE 1.7 mg/dL (0.6-1.0); POTASSIUM 3.7 mmol/L (3.5-5.1)
--- NOTE | 2021-09-09 12:40 | EKG ---
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
[2021-09-09] MEDS ORDERED: CALCIUM GLUCONATE 1,000 MG/10 ML VIAL IV ONE (13:30)
[2021-09-09] MEDS ORDERED: MAGNESIUM SULFATE 2GM 50 ML IV ONE (13:30)
[2021-09-09 13:52] LABS: BILIRUBIN,URINE NEG (NEG); CLARITY,URINE CLEAR; COLOR,URINE YELLOW; GLUCOSE,URINE NEG (NEG); NITRITE,URINE NEG (NEG); RBC,URINE 0 /HPF (0-2); UROBILINOGEN,URINE 0.2 mg/dL (0.2 mg/dL)
[2021-09-09 13:53] LABS: BACTERIA,URINE MANY /HPF (0-FEW); SQUAMOUS EPITHELIAL CELL,UR MANY /LPF
[2021-09-09 18:20] VITALS: BP 113/75
--- NOTE | 2021-09-09 20:10 | NUR ---
PT ARRIVED ON PREVIOUS SHIFT. VS OBTAINED. POC DISCUSSED W/ VERBALIZED UNDERSTANDING. PT IS RESTING COMFORTABLY W/ CALL LIGHT IN REACH.
[2021-09-09 23:24] VITALS: BP 116/96
[2021-09-10 05:00] VITALS: BP 111/62
[2021-09-10 06:21] LABS: BASO % 1 % (0-3); EOS # 0.1 x10^3/uL (0.0-0.7); EOS % 2 % (0-3); HEMATOCRIT 31.3 % (36.0-47.0); HEMOGLOBIN 10.4 g/dL (12.0-15.5); LYMPH # 0.9 x10^3/uL (1.0-4.8); LYMPH % 27 % (24-48); MEAN CORPUSCULAR HEMOGLOBIN 31 pg (25-35); MEAN CORPUSCULAR HGB CONC 33 g/dL (31-37); MEAN CORPUSCULAR VOLUME 95 fL (79-100); MONO # 0.4 x10^3/uL (0.0-1.1); MONO % 12 % (0-9); NEUT # 1.9 x10^3uL (1.8-7.7); NEUT % 58 % (31-73); PLATELET COUNT 133 x10^3/uL (140-400); RED BLOOD COUNT 3.31 x10^6/uL (3.50-5.40); RED CELL DISTRIBUTION WIDTH 13.8 % (11.5-14.5); WHITE BLOOD COUNT 3.2 x10^3/uL (4.0-11.0)
[2021-09-10 06:37] LABS: CALCIUM 8.2 mg/dL (8.5-10.1); CREATININE 1.5 mg/dL (0.6-1.0); GFR 33.5; POTASSIUM 3.3 mmol/L (3.5-5.1)
[2021-09-10] MEDS ORDERED: OXCA600T9 PO (09:41)
[2021-09-10] MEDS ORDERED: RISP1TAB88 PO (09:41)
[2021-09-10] MEDS ORDERED: PANT40TA3 PO (09:41)
[2021-09-10] MEDS ORDERED: TRAZ-120 PO (09:41)
[2021-09-10] MEDS ORDERED: DONE10TA7 PO (09:41)
[2021-09-10] MEDS ORDERED: QUET100T4 PO (09:41)
[2021-09-10] MEDS ORDERED: ALPR0.25 PO (09:41)
[2021-09-10] MEDS ORDERED: LORA0.5T21 PO (09:41)
[2021-09-10] MEDS ORDERED: FURO-69 PO (09:41)
[2021-09-10] MEDS ORDERED: ALPRAZolam 0.25 MG TABLET PO PRN (10:00)
[2021-09-10] MEDS ORDERED: traZODone 50 MG TABLET. PO PRN (10:00)
[2021-09-10] MEDS ORDERED: DONEPEZIL HCL 10 MG TABLET PO SCH ×2 (10:30→21:00)
[2021-09-10] MEDS ORDERED: ALPRAZolam 0.5 MG TABLET PO PRN (10:30)
[2021-09-10 10:48] VITALS: BP 115/72
[2021-09-10] MEDS: risperiDONE 1 MG TABLET. PO SCH ×2 (10:58→20:30)
[2021-09-10] MEDS: POTASSIUM CHLORIDE 20 MEQ TABLET.ER. PO SCH (10:58)
[2021-09-10 14:38] VITALS: BP 106/69
[2021-09-10 14:41] VITALS: BP 118/74
[2021-09-10 14:42] VITALS: BP 94/62
[2021-09-10 18:26] VITALS: BP 106/66
--- NOTE | 2021-09-10 19:05 | HP ---
DATE OF SERVICE: 09/10/2021 ADMIT DATE: 09/09/2021 HISTORY OF PRESENT ILLNESS: A 81-year-old female came in through the Emergency Room with a 1-day history of ____ syncopal spell. She had an episode of dizziness this morning, although she denies it. The family noted that she became increasingly dizzy, lightheaded and passed out. The patient was admitted to the hospital for further evaluation and treatment. She was also somewhat orthostatic in the Emergency Room. There was some confusion as to the situation for the COVID test was positive, then negative, then positive, so there was some confusion there. In any way, the patient was admitted because of her syncope and further evaluation. She did have her blood pressure dropped as well down into 94/62 and there was adjustment of her medications. PAST MEDICAL HISTORY: She has had paroxysmal atrial fibrillation, dementia, cardiac disorders, hypertension, colostomy, bowel surgeries, uterine cancer, renal disease, arthritis, smoking exposure, unknown cancer. Vaccinations are up to date. SURGICAL HISTORY: Hysterectomy. ALLERGIES: ADVERSE REACTION TO MORPHINE. SOCIAL HISTORY: The patient denies smoking, alcohol or drug use. Lives at home. Has good family support. REVIEW OF SYSTEMS: The patient does not give a very good medical history, is full of misinformation about her medical history. Most of the history is obtained from her daughter. PHYSICAL EXAMINATION: GENERAL: This is an elderly healthy-appearing female, looking somewhat older than stated age. VITAL SIGNS: Blood pressure down to 94/62, respiratory rate of 20, pulse in the 70s, temperature of 99.2, room air of 95. HEENT: The patient's head was atraumatic, normocephalic. The mouth and throat showed poor dentition. NECK: Supple without JVD or carotid bruits. No thyromegaly. LUNGS: Diminished, poor movement of air. CARDIOVASCULAR: Irregularly irregular rhythm. ABDOMEN: Soft, nontender. No rebounding. No guarding. Positive bowel sounds. No hepatosplenomegaly was noted. EXTREMITIES: No clubbing, cyanosis, nor edema. NEUROLOGIC: The patient was alert and baseline. She was somewhat confused, difficulty with speech, may be related to her loss of teeth. IMPRESSION: Syncope, COVID-19, orthostatic hypotension. The patient will be admitted for further evaluation on her as indicated and will be monitored accordingly. Family was notified of the infection. Told to get checked and make further evaluation. It is believed the patient had been vaccinated herself. LAURA/SWATHI/DEYSI DR: Loreto TID: [id number]
[2021-09-10] MEDS ORDERED: LORazepam 0.5 MG TABLET PO SCH (21:00)
[2021-09-10] MEDS ORDERED: QUEtiapine 100 MG TABLET. PO SCH ×2 (21:00)
[2021-09-11 05:38] VITALS: BP 142/87
[2021-09-11] MEDS ORDERED: PANTOPRAZOLE 40 MG TABLET. PO SCH (07:30)
[2021-09-11] MEDS ORDERED: SERTRALINE 25 MG TABLET. PO SCH (09:00)
[2021-09-11] MEDS ORDERED: LISINOPRIL 20 MG TABLET PO SCH (09:30)
[2021-09-11] MEDS: risperiDONE 1 MG TABLET. PO SCH (09:32)
[2021-09-11] MEDS: POTASSIUM CHLORIDE 20 MEQ TABLET.ER. PO SCH (09:32)
[2021-09-11 10:53] VITALS: BP 92/63
--- NOTE | 2021-09-11 12:11 | NUR ---
Nursing note Pt discharged at 1200 via wheel chair accompanied by staff Pt given written and verbal instructions with verbal statement of understanding received.
== END 2021-09-11 12:14 | disposition still patient (30) ==
LOC: ER 11:02 → 1 SOUTH 13:35 → INTOOBSV 13:35
PROVIDERS: ADMIT Family Medicine; ATTEND Family Medicine
DX: U07.1 COVID-19 (principal); I95.1 Orthostatic hypotension; I48.0 Paroxysmal atrial fibrillation; I10 Essential (primary) hypertension; E83.42 Hypomagnesemia; E83.51 Hypocalcemia; R77.8 Other specified abnormalities of plasma proteins; R42 Dizziness and giddiness; F03.90 Unspecified dementia, unspecified severity, without behavioral disturbance, psychotic disturbance, mood disturbance, and anxiety; Z85.42 Personal history of malignant neoplasm of other parts of uterus; Z90.710 Acquired absence of both cervix and uterus; Z93.3 Colostomy status; Z79.899 Other long term (current) drug therapy; Z98.890 Other specified postprocedural states
CPT/HCPCS: 36415; 70450; 71045; 80048; 81001; 83735; 84484; 85025; 87086; 87426; 93005; 96365; 96366; 96375; 97161; 97165; 97530; 99285; G0378; J0610; J3475; U0003; G0379

== ENCOUNTER 2021-09-23 14:21 | Inpatient (IN) | payer OTHER ==
[~2021-09-23] VITALS: Ht 157.5 cm; Wt 66.0 kg
[~2021-09-23 14:21] MED LIST changes: +ALPR0.25 PO; +DONE10TA7 PO; +FURO-69 PO; +OXCA600T9 PO; +PANT40TA3 PO; +QUET100T4 PO; +RISP1TAB88 PO; +TRAZ-120 PO
--- NOTE | 2021-09-23 14:35 | PHYS DOC ---
Past History Past Medical History: A-Fib, Anxiety, Arthritis, Dementia, Hypertension, Renal Failure, Other Additional Past Medical Histor: Hypokalemia Past Surgical History: Colectomy, Hysterectomy Additional Past Surgical Histo: uterine cancer, colon resection, colostomy Smoking: Non-smoker Alcohol Use: None Drug Use: None General Adult EDM: Chief Complaint: ALTERED MENTAL STATUS HPI: HPI: 81-year-old female presents from home via EMS with syncope and possible altered mental status. The patient was reported to have had a syncopal episode today. She does not remember this. She does not have any pain. She does not know if she fell or not. She has a history of syncope. She tells me that nothing hurts and she feels fine. She states she had her Covid vaccines. Denies fever or chills. Review of Systems: Review of Systems: Constitutional: Denies fever or chills Eyes: Denies change in visual acuity HENT: Denies nasal congestion or sore throat Respiratory: Denies cough or shortness of breath Cardiovascular: Denies chest pain or edema GI: Denies abdominal pain, nausea, vomiting, bloody stools or diarrhea : Denies dysuria Musculoskeletal: Denies back pain or joint pain Integument: Denies rash Neurologic: Syncope. Denies headache, focal weakness or sensory changes Endocrine: Denies polyuria or polydipsia Lymphatic: Denies swollen glands Psychiatric: Denies depression or anxiety Allergies: Allergies: Allergies Coded Allergies Type Severity Reaction Last Updated Verified morphine Allergy Unknown 06/13/21 Yes Physical Exam: PE: Constitutional: Well developed, well nourished, no acute distress, non-toxic appearance. [] HENT: Normocephalic, atraumatic, bilateral external ears normal, oropharynx moist, no oral exudates, nose normal. [] Eyes: PERRLA, EOMI, conjunctiva normal, no discharge. [] Neck: Normal range of motion, no tenderness, supple, no stridor. [] Cardiovascular: Heart rate regular rhythm, no murmur [] Lungs & Thorax: Bilateral breath sounds clear to auscultation [] Abdomen: Bowel sounds normal, soft, no tenderness, no masses, no pulsatile masses. [] Skin: Warm, dry, no erythema, no rash. [] Back: No tenderness, no CVA tenderness. [] Extremities: No tenderness, no cyanosis, no clubbing, ROM intact, no edema. [] Neurologic: Alert and oriented X 3, normal motor function, normal sensory function, no focal deficits noted. [] Psychologic: Affect normal, judgement normal, mood normal. [] Current Patient Data: Vital Signs: Vital Signs Date Time Temp Pulse Resp B/P (MAP) Pulse Ox O2 Delivery O2 Flow Rate FiO2 09/23/21 14:25 98.6 80 18 112/71 (85) 98 Room Air EKG: EKG: [] Radiology/Procedures: Radiology/Procedures: [] Impressions: CT HEAD/BRAIN WO Clinical indications: Reason: unsteady gait, altered mental status. COMPARISON: September 09, 2021. Technique: Noncontrast axial cross sectional scanning of the head was performed. PQRS compliance Statement One or more of the following individualized dose reduction techniques were utilized for this study: 1. Automated exposure control 2. Adjustment of the mA and/or kV according to patient size 3. Use of iterative reconstruction technique Findings: No acute intracranial hemorrhage or midline shift or mass-effect or hydrocephalus or extra-axial fluid collection is seen. No focal hypodense area or sulci effacement is seen to indicate an acute infarct or edema radiographically. No skull fracture or pneumocephalus is seen. No opacification of the mastoid sinuses or the middle ear cavities is seen. There is opacification of the right sphenoid sinus which is new. There is mild mucosal thickening of the floor of the left sphenoid sinus. The maxillary sinuses are not completely seen in this study. IMPRESSION: No acute intracranial abnormality is seen. New finding of opacific ation of the right sphenoid sinus. Electronically signed by: Nuvia Lucas MD (09/23/2021 3:44 PM) [id number] DICTATED AND SIGNED BY: NUVIA LUCAS MD DATE: 09/23/21 1541 CC: EL ESQUIVEL DO; MURRAY PALMER MD ~MTH0 0 Heart Score: C/O Chest Pain: N/A Risk Factors: Risk Factors: DM, Current or recent (<one month) smoker, HTN, HLP, family history of CAD, obesity. Risk Scores: Score 0 - 3: 2.5% MACE over next 6 weeks - Discharge Home Score 4 - 6: 20.3% MACE over next 6 weeks - Admit for Clinical Observation Score 7 - 10: 72.7% MACE over next 6 weeks - Early Invasive Strategies Course & Med Decision Making: Course & Med Decision Making Pertinent Labs and Imaging studies reviewed. (See chart for details) Review of the patient's chart shows that she was positive for COVID-19 September 10, 2021. The patient has informed me that I do not look well enough to be a doctor. She denies any shortness of breath and is quite talkative. The patient's labs are significant for an elevated creatinine, low magnesium, low potassium. We will give her normal saline, IV magnesium, and IV potassium. I spoke with Dr. Palmer and he has agreed admit the patient to the hospital. [] Dragon Disclaimer: Dragon Disclaimer: This electronic medical record was generated, in whole or in part, using a voice recognition dictation system. Departure Departure: Impression: Primary Impression: Hypomagnesemia Additional Impressions: Hypokalemia Elevated serum creatinine Disposition: ADMITTED INPATIENT Admitting Physician: Murray Palmer Condition: STABLE Referrals: MURRAY PALMER MD (PCP) EL ESQUIVEL DO Sep 23, 2021 14:35
--- NOTE | 2021-09-23 15:10 | RAD ---
XR CHEST 1V History: Reason: syncope / Spl. Instructions: / History: Comparison: September 09, 2021 Findings: No consolidation or pleural effusion. Normal heart size. No pneumothorax. Impression: 1. No acute cardiopulmonary process. Electronically signed by: Mark Figueredo DO (09/23/2021 3:07 PM) [id number]
--- NOTE | 2021-09-23 15:47 | RAD ---
CT HEAD/BRAIN WO Clinical indications: Reason: unsteady gait, altered mental status. COMPARISON: September 09, 2021. Technique: Noncontrast axial cross sectional scanning of the head was performed. PQRS compliance Statement One or more of the following individualized dose reduction techniques were utilized for this study: 1. Automated exposure control 2. Adjustment of the mA and/or kV according to patient size 3. Use of iterative reconstruction technique Findings: No acute intracranial hemorrhage or midline shift or mass-effect or hydrocephalus or extra- axial fluid collection is seen. No focal hypodense area or sulci effacement is seen to indicate an ac [place] infarct or edema radiographically. No skull fracture or pneumocephalus is seen. No opacification of the mastoid sinuses or the middle ear cavities is seen. There is opacification of the right sphen oid sinus which is new. There is mild mucosal thickening of the floor of the left sphenoid sinus. The maxillary sinuses are not completely seen in this study. IMPRESSION: No acute intracranial abnormality is seen. New finding of opacification of the right sphe noid sinus. Electronically signed by: Homer Lucas MD (09/23/2021 3:44 PM) [id number]
[2021-09-23 16:02] LABS: ALBUMIN 4.2 g/dL (3.4-5.0); ALBUMIN/GLOBULIN RATIO 1.3 (1.0-1.7); CALCIUM 8.2 mg/dL (8.5-10.1); CREATININE 3.2 mg/dL (0.6-1.0); MAGNESIUM 1.3 mg/dL (1.8-2.4); TOTAL BILIRUBIN 0.4 mg/dL (0.2-1.0); TOTAL PROTEIN 7.4 g/dL (6.4-8.2)
[2021-09-23 16:07] LABS: POTASSIUM 2.8 mmol/L (3.5-5.1)
[2021-09-23 16:13] LABS: BASO % 1 % (0-3); EOS % 1 % (0-3); HEMATOCRIT 35.7 % (36.0-47.0); LYMPH % 18 % (24-48); MEAN CORPUSCULAR HEMOGLOBIN 31 pg (25-35); MEAN CORPUSCULAR HGB CONC 34 g/dL (31-37); MEAN CORPUSCULAR VOLUME 93 fL (79-100); MONO # 0.3 x10^3/uL (0.0-1.1); MONO % 5 % (0-9); NEUT # 4.3 x10^3uL (1.8-7.7); NEUT % 75 % (31-73); PLATELET COUNT 230 x10^3/uL (140-400); RED BLOOD COUNT 3.82 x10^6/uL (3.50-5.40); RED CELL DISTRIBUTION WIDTH 13.5 % (11.5-14.5); WHITE BLOOD COUNT 5.7 x10^3/uL (4.0-11.0)
[2021-09-23 16:20] LABS: BACTERIA,URINE FEW /HPF (0-FEW); BILIRUBIN,URINE NEG (NEG); CLARITY,URINE CLEAR; COLOR,URINE YELLOW; GLUCOSE,URINE NEG (NEG); NITRITE,URINE NEG (NEG); RBC,URINE 0 /HPF (0-2); SQUAMOUS EPITHELIAL CELL,UR FEW /LPF; UROBILINOGEN,URINE 0.2 mg/dL (0.2 mg/dL)
[2021-09-23] MEDS ORDERED: IV NORMAL SALINE 1,000ML 1,000 ML IV ONE (16:30)
[2021-09-23] MEDS: POTASSIUM CHLORIDE 20MEQ 100 ML IV SCH ×2 (16:32→18:30)
[2021-09-23] MEDS ORDERED: MAGNESIUM SULFATE 1GM 100 ML IV ONE (17:00)
[2021-09-23] MEDS ORDERED: ACETAMINOPHEN 325 MG TABLET PO PRN (18:00)
[2021-09-23] MEDS ORDERED: ONDANSETRON PF 4 MG/2 ML VIAL. IVP PRN (18:00)
[2021-09-23 19:40] VITALS: BP 121/70
[2021-09-23 23:00] VITALS: BP 135/78
--- NOTE | 2021-09-24 03:04 | EKG ---
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
[2021-09-24 05:00] VITALS: BP 135/78
[2021-09-24] MEDS ORDERED: ELECTROLYTE (NON-ICU) PROTOCOL. MC PRN (09:30)
[2021-09-24] MEDS: risperiDONE 1 MG TABLET. PO SCH ×2 (11:56→19:50)
[2021-09-24] MEDS: PANTOPRAZOLE 40 MG TABLET. PO SCH (11:56)
[2021-09-24] MEDS: POTASSIUM CHLORIDE 20 MEQ TABLET.ER. PO SCH (11:56)
[2021-09-24 12:09] LABS: CALCIUM 8.4 mg/dL (8.5-10.1); CREATININE 1.9 mg/dL (0.6-1.0); GFR 25.5
[2021-09-24 12:55] LABS: POTASSIUM 2.8 mmol/L (3.5-5.1)
[2021-09-24] MEDS: POTASSIUM BICARB 10 MEQ EFFERVESCENT TABLET. FT SCH ×2 (13:40→17:00)
[2021-09-24 14:46] VITALS: BP 135/78
[2021-09-24 14:49] VITALS: BP 102/68
[2021-09-24 18:28] VITALS: BP 92/55
--- NOTE | 2021-09-24 19:31 | HP ---
DATE OF SERVICE: 09/24/2021 ADMIT DATE: 09/23/2021 HISTORY OF PRESENT ILLNESS: A 81-year-old female. She came in through the Emergency Room with apparently altered mental status. The patient had another syncopal episode today. The patient could not tell whether she had fallen or not, but the family noted that she did fall and was found on the floor. The patient is a very poor historian, has a long history of Alzheimer's disease, and as a result of this, the patient was admitted to the hospital. In the meantime, the patient had been seen 2 days earlier for COVID-19 positive. The patient, as noted, was a poor self historian and does not even note any coughing, but was noted by the hospital staff, so she was admitted for syncopal spells as well as her COVID-19 and further evaluation. Blood pressure 112/70, respiratory rate 18, pulse 80, afebrile, 98 on room air. PAST MEDICAL HISTORY: Severe Alzheimer's disease, colostomy, bowel surgery, uterine cancer, hysterectomy, osteoarthritis, congestive heart failure. ALLERGIES: MORPHINE. FAMILY HISTORY: Noncontributory. SOCIAL HISTORY: No smoking, alcohol or drug use. Lives at home with her family. REVIEW OF SYSTEMS: Unable to obtain as the patient is not able to give any type of history. PHYSICAL EXAMINATION: VITAL SIGNS: As noted, blood pressure 120/70, respiratory rate 18, pulse 75, afebrile. GENERAL: Presently, the patient is alert, but confused, disoriented, not quite sure where she is at, which is not unlike her for that matter. HEENT: The patient's mouth and throat show poor dentition. NECK: Supple. LUNGS: Show diminished breath sounds, primarily in the bases. CARDIOVASCULAR: Regular rate and rhythm. ABDOMEN: The patient's abdomen is soft, scaphoid and no bruits were noted. No hepatosplenomegaly. EXTREMITIES: No clubbing, cyanosis or edema. NEUROLOGIC: Stable for this individual, baseline showing severe Alzheimer's. IMAGING DATA: The patient's CT of the head showed no obvious bleed and no acute infarction. Chest x-ray showed no acute pulmonary process. LABORATORY DATA: White count 5, hemoglobin 12 and hematocrit 35. The patient's potassium was also low at 2.8, put on electrolyte replacement. BUN and creatinine 54 and 3.2, was dehydrated and came down 42 and 1.9 with hydration. IMPRESSION AND PLAN: Syncopal spell, COVID-19, severe hypokalemia, severe dehydration, severe Alzheimer's disease. The patient is being monitored carefully, placed in protocol for COVID-19, given IV fluids, and of course, electrolyte replacement for her low potassium. LAURA/SWATHI/DENEEN DR: Loreto TID: [id number]
[2021-09-24] MEDS: DONEPEZIL HCL 10 MG TABLET PO SCH (19:50)
[2021-09-24] MEDS: traZODone 50 MG TABLET. PO PRN (19:50)
[2021-09-24 23:32] VITALS: BP 101/66
[2021-09-25 05:40] VITALS: BP 120/88
[2021-09-25 06:23] LABS: CALCIUM 8.5 mg/dL (8.5-10.1)
[2021-09-25] MEDS: PANTOPRAZOLE 40 MG TABLET. PO SCH (07:41)
[2021-09-25] MEDS: POTASSIUM BICARB 10 MEQ EFFERVESCENT TABLET. PO SCH ×2 (07:41→11:29)
[2021-09-25] MEDS: POTASSIUM CHLORIDE 20 MEQ TABLET.ER. PO SCH (08:39)
[2021-09-25] MEDS: risperiDONE 1 MG TABLET. PO SCH ×2 (08:39→19:30)
[2021-09-25] MEDS ORDERED: LISINOPRIL 20 MG TABLET PO SCH (09:00)
[2021-09-25 10:05] VITALS: BP 92/63
[2021-09-25 14:23] VITALS: BP 101/65
[2021-09-25 15:28] LABS: CALCIUM 8.3 mg/dL (8.5-10.1); CREATININE 2.6 mg/dL (0.6-1.0); GFR 17.8; POTASSIUM 3.4 mmol/L (3.5-5.1)
[2021-09-25 19:26] VITALS: BP 93/60
[2021-09-25] MEDS: traZODone 50 MG TABLET. PO PRN (19:30)
[2021-09-25] MEDS: DONEPEZIL HCL 10 MG TABLET PO SCH (19:30)
--- NOTE | 2021-09-25 20:14 | PN ---
SUBJECTIVE: The patient in with COVID-19 as well as severe hypokalemia, generalized weakness. The patient seems to be doing a little better, although she is very lethargic, was able to answer some questions, but still requires physical and occupational therapy. The patient is markedly confused, disoriented, has severe Alzheimer's disease and will continue to be monitored carefully on that as well. We will try to get a SNF unit evaluation for [facility] to be observed. OBJECTIVE: VITAL SIGNS: Blood pressure 92/63. Decrease lisinopril. Respiratory rate 16, pulse 72, afebrile. On room air at 98%. GENERAL: The patient is alert, but confused, disoriented, very sleepy, goes back to sleep. LUNGS: Diminished. CARDIOVASCULAR: Regular sinus rhythm, occasional dropped beat. ABDOMEN: Soft, nontender. No rebounding, no guarding. Positive bowel sounds, no hepatosplenomegaly noted. Scaphoid. The patient very thin individual. EXTREMITIES: No clubbing, cyanosis, nor edema. Very loss of muscle mass. We will get PT, OT to work with her and continue to monitor her potassium levels and adjust on her blood pressure. IMPRESSION: Hypokalemia, generalized weakness, syncope, COVID-19. PLAN: As above. DONI DR: Loreto TID: [id number]
[2021-09-25 23:12] VITALS: BP 90/57
[2021-09-26 06:12] VITALS: BP 94/57
[2021-09-26 06:22] LABS: CALCIUM 8.2 mg/dL (8.5-10.1); CREATININE 3.2 mg/dL (0.6-1.0); POTASSIUM 3.7 mmol/L (3.5-5.1)
[2021-09-26] MEDS: PANTOPRAZOLE 40 MG TABLET. PO SCH (08:00)
[2021-09-26] MEDS: POTASSIUM CHLORIDE 20 MEQ TABLET.ER. PO SCH (08:02)
[2021-09-26] MEDS: risperiDONE 1 MG TABLET. PO SCH (08:02)
[2021-09-26] MEDS ORDERED: LISINOPRIL 20 MG TABLET PO SCH (09:00)
[2021-09-26 10:52] VITALS: BP 114/70
--- NOTE | 2021-09-30 21:05 | DS ---
DATE OF DISCHARGE: 09/26/2021 HOSPITAL COURSE: The patient came in through the Emergency Room, had a syncopal spell at home. The patient is a poor historian. She has severe Alzheimer disease. The patient had been seen recently in the office and recently diagnosed with last 2 days with COVID-19. The patient's potassium was also extremely low and she was admitted for syncopal spells as well as severe hypokalemia, potassium supplementation per electrolyte protocol. Her chemistries were basically normal except for her potassium of 2.8. Her BUN was 42 and creatinine of 1.9, although that went up to 43 and 3.2 and that needs to be monitored as an outpatient. The patient needs to be encouraged to drink more fluids and her potassium came up to 3.7. The patient had a head CT scan, which was unremarkable. A chest x-ray that was unremarkable. The patient made good progress overall. She was discharged home and did receive some physical and occupational therapy for her as well. The patient will be discharged home. See YARA. IMPRESSION: Syncopal spells at home, severe hypokalemia. COVID-19 post vaccination for that matter, chronic kidney disease, stage IV. The patient will be on a regular diet, decreased activity, see MRAD and she will follow up in the next 4-7 days for followup on lab work. LAURA/CURTIS DR: LAURA/salvatore TID: [id number]
== END 2021-09-26 13:50 | disposition home or self-care (01) | DRG 640 ==
LOC: ER 14:21 → 1 SOUTH 18:00
PROVIDERS: ADMIT Family Medicine; ATTEND Family Medicine
DX: E87.6 Hypokalemia (principal); U07.1 COVID-19; N17.0 Acute kidney failure with tubular necrosis; G93.41 Metabolic encephalopathy; I13.0 Hypertensive heart and chronic kidney disease with heart failure and stage 1 through stage 4 chronic kidney disease, or unspecified chronic kidney disease; N18.4 Chronic kidney disease, stage 4 (severe); G30.9 Alzheimer's disease, unspecified; I50.9 Heart failure, unspecified; F02.80 Dementia in other diseases classified elsewhere, unspecified severity, without behavioral disturbance, psychotic disturbance, mood disturbance, and anxiety; E83.42 Hypomagnesemia; E86.0 Dehydration; M19.90 Unspecified osteoarthritis, unspecified site; R79.89 Other specified abnormal findings of blood chemistry; I48.91 Unspecified atrial fibrillation; F41.9 Anxiety disorder, unspecified; Z20.822 Contact with and (suspected) exposure to COVID-19; Z85.42 Personal history of malignant neoplasm of other parts of uterus; Z90.710 Acquired absence of both cervix and uterus; Z90.49 Acquired absence of other specified parts of digestive tract; Z86.16 Personal history of COVID-19; Z88.5 Allergy status to narcotic agent
CPT/HCPCS: 36415; 70450; 71045; 80048; 80053; 81001; 83735; 84132; 84484; 85025; 87086; 93005; 96365; 96366; 96367; J3475; J3480; 97116; 97535; 99285-25; J7030

== ENCOUNTER 2021-10-06 15:25 | Inpatient (IN) | payer OTHER ==
[~2021-10-06] VITALS: Ht 157.5 cm; Wt 62.5 kg
--- NOTE | 2021-10-06 16:27 | PHYS DOC ---
Past History Past Medical History: A-Fib, Anxiety, Arthritis, Dementia, Hypertension, Other Additional Past Medical Histor: Hypokalemia (AMISH LEMA APRN) Past Surgical History: Colectomy, Hysterectomy Additional Past Surgical Histo: uterine cancer, colon resection, colostomy (AMISH LEMA APRN) Smoking: Non-smoker Alcohol Use: None Drug Use: None (AMISH LEMA APRN) General Adult EDM: Chief Complaint: DIZZY/LIGHT HEADED HPI: HPI: Patient is a 81-year-old female presents with dizziness, fatigue, decreased appetite, nausea. Patient states "I woke up this morning and told my son I felt really tired and did not want to eat much". Patient denies recent illness or fever. Denies vomiting/diarrhea. History of hypertension, anxiety, A. fib, dementia. (AMISH LEMA APRN) Review of Systems: Review of Systems: ROS At least 10 ROS systems have been reviewed and are negative except as documented in the HPI. General: Negative except as outlined in HPI above. Skin: Negative except as outlined in HPI above. HEENT: Negative except as outlined in HPI above. Neck: Negative except as outlined in HPI above. Respiratory: Negative except as outlined in HPI above.. Cardiovascular: Negative except as outlined in HPI above. Abdomen: Negative except as outlined in HPI above. : Negative except as outlined in HPI above. Back/MSK: Negative except as outlined in HPI above. Neuro: Negative except as outlined in HPI above. Psych: Negative except as outlined in HPI above. (AMISH LEMA APRN) Current Medications: Current Meds: Current Medications Medications (Trade) Dose Ordered Sig/Brian Start Time Stop Time Status Last Admin Dose Admin Ondansetron HCl (Zofran) 4 mg 1X ONCE 10/06/21 16:30 10/06/21 16:31 UNV Sodium Chloride 1,000 ml @ 1,000 mls/hr 1X ONCE 10/06/21 16:30 10/06/21 17:29 UNV (AMISH LEMA APRN) Allergies: Allergies: Allergies Coded Allergies Type Severity Reaction Last Updated Verified morphine Allergy Unknown 09/23/21 Yes (AMISH LEMA APRN) Physical Exam: PE: Constitutional: Well developed, well nourished, no acute distress, non-toxic appearance. [] HENT: Normocephalic, atraumatic, bilateral external ears normal, oropharynx moist, no oral exudates, nose normal. [] Eyes: PERRLA, EOMI, conjunctiva normal, no discharge. [] Neck: Normal range of motion, no tenderness, supple, no stridor. [] Cardiovascular:Heart rate regular rhythm, no murmur [] Lungs & Thorax: Bilateral breath sounds clear to auscultation [] Abdomen: Bowel sounds normal, soft, no tenderness, no masses, no pulsatile masses. [] Skin: Warm, dry, no erythema, no rash. [] Back: No tenderness, no CVA tenderness. [] Extremities: No tenderness, no cyanosis, no clubbing, ROM intact, no edema. [] Neurologic: Alert and oriented X 3, normal motor function, normal sensory function, no focal deficits noted. [] Psychologic: Affect normal, judgement normal, mood normal. [] (AMISH LEMA APRN) Current Patient Data: Vital Signs: Vital Signs Date Time Temp Pulse Resp B/P (MAP) Pulse Ox O2 Delivery O2 Flow Rate FiO2 10/06/21 15:41 98.0 86 16 92/43 (59) 100 Room Air (AMISH LEMA APRN) EKG: EKG: Sinus rhythm. Heart rate 82 bpm. [] (AMISH LEMA APRN) Radiology/Procedures: Radiology/Procedures: []EXAM: Head CT without contrast. HISTORY: Dizziness. TECHNIQUE: Computed tomographic images of the head were obtained without contrast. *One or more of the following individualized dose reduction techniques were u tilized for this examination: 1. Automated exposure control. 2. Adjustment of the mA and/or kV according to patient size. 3. Use of iterative reconstruction technique. COMPARISON: 09/23/2021. FINDINGS: There is no acute or subacute extra-axial or intraparenchymal hemorrhage. There is no mass effect or midline shift. There is no hydrocephalus. There are areas of decreased attenuation within the cerebral white matter, nonspecific and likely related to chronic small vessel disease. There is cerebral volume loss. There are tiny mucous retention cyst within the posterior ethmoid and sphenoid sinus. The mastoid air cells are clear. There is no suspicious calvarial lesion. IMPRESSION: 1. No acute intracranial finding. MRI is more sensitive for acute infarction. 2. Bilateral cerebral white matter changes, likely due to chronic small vessel disease in a patient of this age. Electronically signed by: Freya Antunez MD (10/06/2021 4:49 PM) [facility] EXAM: Chest, single view. HISTORY: Dizziness. COMPARISON: 09/23/2021 FINDINGS: A frontal view of the chest is obtained. There is no infiltrate, pleural effusion or pneumothorax. The heart is normal in size. IMPRESSION: No acute pulmonary finding. Electronically signed by: Freya Antunez MD (10/06/2021 4:48 PM) [facility] (AMISH LEMA APRN) Heart Score: C/O Chest Pain: No Risk Factors: Risk Factors: DM, Current or recent (<one month) smoker, HTN, HLP, family history of CAD, obesity. Risk Scores: Score 0 - 3: 2.5% MACE over next 6 weeks - Discharge Home Score 4 - 6: 20.3% MACE over next 6 weeks - Admit for Clinical Observation Score 7 - 10: 72.7% MACE over next 6 weeks - Early Invasive Strategies (AMISH LEMA APRN) Course & Med Decision Making: Course & Med Decision Making Pertinent Labs and Imaging studies reviewed. (See chart for details) [] 81-year-old female presents with dizziness, fatigue, decrease in appetite and nausea. Patient reports symptoms started this morning. Work-up in ER consist of blood work, urinalysis, EKG, CT, chest x-ray. Bicarb of 11, anion gap 21, BUN 60, creatinine 5.6, blood sugar was 133. Patient was given normal saline bolus. Patient's BUN and creatinine have been elevated in the past but higher than previous visits. CMP was redrawn after bolus given. There is minimal decrease in BUN and creatinine. Discussed patient with Dr. Peters who is willing to accept at [facility]. Patient to be given 2 L NS bolus to treat dehydration. Dr. Peters recommended lisinopril and potassium both to be held. Bladder scan to be completed to make sure patient is not retaining urine. Renal ultrasound will be ordered to be completed tomorrow. Urine positive for leuks and greater than 40 WBCs. Patient given Rocephin in the ER. Patient admitted for acute renal injury, UTI. (AMISH LEMA APRN) Course & Med Decision Making Endorsed to Dr. Varela pending hospital bed placement- at shift change. Nursing shortage. (BHUPINDER STEWART MD) Dragon Disclaimer: Dragon Disclaimer: This electronic medical record was generated, in whole or in part, using a voice recognition dictation system. (AMISH LEMA APRN) Departure Departure: Impression: Primary Impression: Acute renal injury Additional Impression: UTI (urinary tract infection) Qualified Codes: N30.00 - Acute cystitis without hematuria Disposition: ADMITTED INPATIENT Admitting Physician: Edmund Peters (AMISH LEMA APRN) Condition: STABLE Referrals: AMAYA PALMER MD (PCP) Kenneth Disclaimer This chart was dictated in whole or in part using Voice Recognition software in a busy, high-work load, and often noisy Emergency Department environment. It may contain unintended and wholly unrecognized errors or omissions. (BHUPINDER STEWART MD) Attending Signature Attending Signature I have participated in the care of this patient and I have reviewed and agree with all pertinent clinical information above including history, exam, and recommendations. (BHUPINDER STEWART MD) AMISH LEMA APRN Oct 06, 2021 16:27 BHUPINDER STEWART MD Oct 07, 2021 00:51
[2021-10-06] MEDS ORDERED: IV NORMAL SALINE 1,000ML 1,000 ML IV ONE ×2 (16:30→19:45)
[2021-10-06] MEDS ORDERED: ONDANSETRON PF 4 MG/2 ML VIAL. IVP ONE ×2 (16:30→22:30)
--- NOTE | 2021-10-06 16:37 | EKG ---
[facility] ED [facility] [place] [id number] Test Date: 2021-10-06 Test Time: 16:32:24 Pat Name: JUAN GARCÍA Department: Room: Gender: F Erp Developer: SLADE : 1940 Requested By: AMISH LEMA Order Number: [id number] Reading MD: Robe Mcgee MD Measurements Intervals [employer] Rate: 82 P: 90 [place]: 210 QRS: 101 QRSD: 88 T: 64 QT: 388 QTc: 456 Interpretive Statements SINUS RHYTHM NON-SPECIFIC ST/T CHANGES Electronically Signed On 10-14-2021 15:35:10 FACILITY MAINTENANCE WORKER by Robe Mcgee MD
--- NOTE | 2021-10-06 16:51 | RAD ---
EXAM: Chest, single view. HISTORY: Dizziness. COMPARISON: 09/23/2021 FINDINGS: A frontal view of the chest is obtained. There is no infiltrate, pleural effusion or pneumo thorax. The heart is normal in size. IMPRESSION: No acute pulmonary finding. Electronically signed by: Freya Antunez MD (10/06/2021 4:48 PM) [facility]
--- NOTE | 2021-10-06 16:52 | RAD ---
EXAM: Head CT without contrast. HISTORY: Dizziness. TECHNIQUE: Computed tomographic images of the head were obtained without contrast. *One or more of the following individualized dose reduction techniques were utilized for this examina tion: 1. Automated exposure control. 2. Adjustment of the mA and/or kV according to patient size. 3. Use of iterative reconstruction technique. COMPARISON: 09/23/2021. FINDINGS: There is no acute or subacute extra-axial or intraparenchymal hemorrhage. There is no mass effect or midline shift. There is no hydrocephalus. There are areas of decreased attenuation within the cerebral white matter, nonspecific and likely rel ated to chronic small vessel disease. There is cerebral volume loss. There are tiny mucous retention cyst within the posterior ethmoid and sphenoid sinus. The mastoid air cells are clear. There is no suspicious calvarial lesion. IMPRESSION: 1. No acute intracranial finding. MRI is more sensitive for acute infarction. 2. Bilateral cerebral white matter changes, likely due to chronic small vessel disease in a patient o f this age. Electronically signed by: Freya Antunez MD (10/06/2021 4:49 PM) [facility]
[2021-10-06 16:57] LABS: BASO % 1 % (0-3); EOS % 1 % (0-3); HEMATOCRIT 35.9 % (36.0-47.0); HEMOGLOBIN 11.6 g/dL (12.0-15.5); LYMPH # 0.9 x10^3/uL (1.0-4.8); LYMPH % 13 % (24-48); MEAN CORPUSCULAR HEMOGLOBIN 31 pg (25-35); MEAN CORPUSCULAR HGB CONC 32 g/dL (31-37); MEAN CORPUSCULAR VOLUME 97 fL (79-100); MONO # 0.5 x10^3/uL (0.0-1.1); MONO % 8 % (0-9); NEUT # 5.3 x10^3uL (1.8-7.7); NEUT % 78 % (31-73); PLATELET COUNT 158 x10^3/uL (140-400); RED BLOOD COUNT 3.71 x10^6/uL (3.50-5.40); RED CELL DISTRIBUTION WIDTH 14.7 % (11.5-14.5); WHITE BLOOD COUNT 6.8 x10^3/uL (4.0-11.0)
[2021-10-06 17:06] LABS: ALBUMIN 3.7 g/dL (3.4-5.0); CALCIUM 8.5 mg/dL (8.5-10.1); CREATININE 5.6 mg/dL (0.6-1.0); GFR 7.3; POTASSIUM 3.5 mmol/L (3.5-5.1); TOTAL BILIRUBIN 0.4 mg/dL (0.2-1.0); TOTAL PROTEIN 7.5 g/dL (6.4-8.2)
[2021-10-06 18:59] LABS: BILIRUBIN,URINE NEG (NEG); CLARITY,URINE HAZY; COLOR,URINE YELLOW; GLUCOSE,URINE NEG (NEG)
[2021-10-06 19:00] LABS: BACTERIA,URINE MOD /HPF (0-FEW); NITRITE,URINE NEG (NEG); RBC,URINE OCC /HPF (0-2); SQUAMOUS EPITHELIAL CELL,UR MANY /LPF; UROBILINOGEN,URINE 0.2 mg/dL (0.2 mg/dL); WBC,URINE >40 /HPF (0-4)
[2021-10-06 19:07] LABS: ALBUMIN 3.3 g/dL (3.4-5.0); ALBUMIN/GLOBULIN RATIO 0.9 (1.0-1.7); CALCIUM 8.1 mg/dL (8.5-10.1); CREATININE 5.4 mg/dL (0.6-1.0); GFR 7.6; POTASSIUM 3.8 mmol/L (3.5-5.1); TOTAL BILIRUBIN 0.3 mg/dL (0.2-1.0); TOTAL PROTEIN 6.8 g/dL (6.4-8.2)
[2021-10-06] MEDS ORDERED: cefTRIAXone SODIUM 1 GM VIAL ONE (19:56)
[2021-10-06] MEDS ORDERED: IV NORMAL SALINE 50ML 50 ML ONE (19:56)
[2021-10-06] MEDS ORDERED: ONDANSETRON PF 4 MG/2 ML VIAL. ONE (21:42)
[2021-10-06] MEDS: IV NORMAL SALINE 1,000ML 1,000 ML IV SCH (22:12)
[2021-10-06] MEDS ORDERED: METOCLOPRAMIDE HCL 10 MG/2 ML VIAL. IVP ONE (23:00)
[2021-10-07 06:06] LABS: BASO % 1 % (0-3); EOS % 0 % (0-3); HEMATOCRIT 31.5 % (36.0-47.0); HEMOGLOBIN 10.4 g/dL (12.0-15.5); LYMPH # 1.3 x10^3/uL (1.0-4.8); LYMPH % 17 % (24-48); MEAN CORPUSCULAR HEMOGLOBIN 31 pg (25-35); MEAN CORPUSCULAR HGB CONC 33 g/dL (31-37); MEAN CORPUSCULAR VOLUME 94 fL (79-100); MONO # 0.4 x10^3/uL (0.0-1.1); MONO % 5 % (0-9); NEUT # 5.8 x10^3uL (1.8-7.7); NEUT % 76 % (31-73); PLATELET COUNT 174 x10^3/uL (140-400); RED BLOOD COUNT 3.34 x10^6/uL (3.50-5.40); RED CELL DISTRIBUTION WIDTH 14.1 % (11.5-14.5); WHITE BLOOD COUNT 7.7 x10^3/uL (4.0-11.0)
[2021-10-07 06:15] LABS: CALCIUM 7.8 mg/dL (8.5-10.1); CREATININE 4.2 mg/dL (0.6-1.0); GFR 10.2; POTASSIUM 3.4 mmol/L (3.5-5.1)
[2021-10-07 06:21] LABS: ALBUMIN 3.4 g/dL (3.4-5.0); ALBUMIN/GLOBULIN RATIO 1.2 (1.0-1.7); TOTAL BILIRUBIN 0.3 mg/dL (0.2-1.0); TOTAL PROTEIN 6.3 g/dL (6.4-8.2)
--- NOTE | 2021-10-07 08:15 | RAD ---
US RENAL BILAT History: Reason: ELEVATED BUN/CREATINE / Spl. Instructions: / History: Comparison: None. Procedure: Transabdominal ultrasound images are obtained of the kidneys and bladder. Findings: Right kidney: measures 12.1 x 4.1 x 4.4 cm. Normal cortical echotexture. Corticomedullary differenti ation is preserved. No hydronephrosis. Left kidney: measures 10.0 x 4.9 x 5.1 cm. Not well seen due to overlying structures. No hydronephro sis. Urinary bladder: No urinary bladder wall thickening. Right ureteral jet is identified. Left ureteral jet is not identified during time of imaging. Aorta and IVC not well seen due to overlying structures. IMPRESSION: 1. Unremarkable renal ultrasound. Electronically signed by: Mark Figueredo DO (10/07/2021 8:13 AM) [id number]
[2021-10-07] MEDS ORDERED: ONDANSETRON PF 4 MG/2 ML VIAL. IVP ONE (11:45)
[2021-10-07] MEDS: IV NORMAL SALINE 1,000ML 1,000 ML IV SCH (11:48)
[2021-10-07] MEDS ORDERED: METOCLOPRAMIDE HCL 10 MG/2 ML VIAL. IVP ONE ×2 (13:15→19:30)
[2021-10-07] MEDS ORDERED: diphenhydrAMINE 50 MG/ML VIAL IVP ONE (15:00)
[2021-10-07] MEDS ORDERED: cefTRIAXone SODIUM 1 GM VIAL ONE (17:24)
[2021-10-07] MEDS ORDERED: IV NORMAL SALINE 50ML 50 ML ONE (17:24)
[2021-10-07] MEDS ORDERED: traZODone 50 MG TABLET. PO PRN (19:00)
[2021-10-07 19:42] VITALS: BP 123/68
[2021-10-07] MEDS: ONDANSETRON PF 4 MG/2 ML VIAL. IVP PRN (20:28)
[2021-10-07] MEDS: LORazepam 0.5 MG TABLET PO PRN (20:50)
[2021-10-07] MEDS: DONEPEZIL HCL 10 MG TABLET PO SCH (20:50)
[2021-10-07] MEDS: risperiDONE 1 MG TABLET. PO SCH (20:51)
[2021-10-07 23:42] VITALS: BP 114/58
[2021-10-08] MEDS ORDERED: IV NORMAL SALINE 1,000ML 1,000 ML IV SCH (02:15)
[2021-10-08 05:59] VITALS: BP 106/62
[2021-10-08 06:43] LABS: CALCIUM 7.7 mg/dL (8.5-10.1); CREATININE 2.7 mg/dL (0.6-1.0); TOTAL BILIRUBIN 0.3 mg/dL (0.2-1.0); TOTAL PROTEIN 6.1 g/dL (6.4-8.2)
[2021-10-08] MEDS: LISINOPRIL 20 MG TABLET PO SCH (08:21)
[2021-10-08] MEDS: POTASSIUM CHLORIDE 20 MEQ TABLET.ER. PO SCH (08:21)
[2021-10-08] MEDS: PANTOPRAZOLE 40 MG TABLET. PO SCH (08:21)
[2021-10-08] MEDS: risperiDONE 1 MG TABLET. PO SCH ×2 (08:22→20:19)
[2021-10-08] MEDS: ONDANSETRON PF 4 MG/2 ML VIAL. IVP PRN (08:23)
--- NOTE | 2021-10-08 08:42 | RAD ---
EXAM: Abdomen and pelvis CT without intravenous contrast. HISTORY: Pain. TECHNIQUE: Computed tomographic images of the abdomen and pelvis were obtained without contrast. Mult iplanar reformatting was performed. *One or more of the following individualized dose reduction techniques were utilized for this examina tion: 1. Automated exposure control. 2. Adjustment of the mA and/or kV according to patient size. 3. Use of iterative reconstruction technique. COMPARISON: 10/05/2019. FINDINGS: Evaluation of the lower thorax demonstrates small nonspecific groundglass opacities within the posterior lateral lower lobes. These are superimposed on posterior dependent atelectasis. There i s no pleural effusion. No hepatic lesion is seen. The gallbladder is absent. The pancreas is unremark able. 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 There are splenic granulomas. The adrenal glands are unremarkable. The kidneys are unremarkable. There is an enterocolic anastomosis within the right lower quadrant. There are a few colonic divertic ryan. There is mild circumferential wall thickening and surrounding fatty stranding involving the sple eryn flexure of the colon extending into a left ventral abdominal wall colostomy. There has been parti al distal colonic resection. There is hyperdense material within the rectum and distal sigmoid colon possibly due to prior rectal contrast administration. The bladder is unremarkable. The uterus is abse nt. There is no adnexal lesion. The aorta is normal in caliber. There is no lymphadenopathy. There is no acute or suspicious osseous finding. There are degenerative changes involving the spine and hips. There is grade 1 anterolisthesi s of L5 on S1. IMPRESSION: 1. Mild circumferential wall thickening and surrounding fatty stranding involving the splenic flexure of the colon extending to a ventral abdominal wall ostomy. Correlate for possible colitis of infecti ous or inflammatory etiologies. 2. Distal colonic resection. There is hyperdense material within the rectum and distal sigmoid colon, suggesting rectal contrast administration. 3. Colonic diverticula. 4. Nonspecific groundglass opacities within the posterior bilateral lower lobes. These are superimpos ed on atelectasis and may be infectious or inflammatory in etiology. Electronically signed by: Freya Antunez MD (10/08/2021 8:39 AM) [id number]
[2021-10-08] MEDS ORDERED: AMPICILLIN/SULBACTAM 1.5 GM in IV NORMAL SALINE 50ML 50 ML IV SCH (10:00)
[2021-10-08] MEDS ORDERED: ELECTROLYTE (NON-ICU) PROTOCOL. MC PRN (10:00)
[2021-10-08] MEDS: POTASSIUM CHLORIDE 10MEQ 100 ML IV SCH ×4 (10:18→14:16)
[2021-10-08 11:05] VITALS: BP 114/62
[2021-10-08 16:03] VITALS: BP 112/60
[2021-10-08 19:47] VITALS: BP 112/62
[2021-10-08] MEDS: AMOXICILLIN/K CLAV 500/125MG TABLET. PO SCH (20:19)
[2021-10-08] MEDS: DONEPEZIL HCL 10 MG TABLET PO SCH (20:19)
[2021-10-08] MEDS: LORazepam 0.5 MG TABLET PO PRN (20:19)
[2021-10-08] MEDS: LACTOBACILLUS RHAMNOSUS GG 1 CAPSULE. PO SCH (20:19)
--- NOTE | 2021-10-08 21:16 | HP ---
DATE OF SERVICE: 10/08/2021 ADMIT DATE: 10/07/2021 HISTORY OF PRESENT ILLNESS: A 81-year-old female came in through the Emergency Room with increased dizziness, fatigue, nausea, vomiting, diarrhea, as well as marked dehydration. The patient is markedly confused, disoriented, has a long history of Alzheimer's dementia and is markedly more confused than usual. The patient was admitted, placed on IV fluids, and make further evaluation on her as indicated. The patient's BNP has been elevated to 693, but somewhat not unusual for this patient. The patient has also urinary tract infection and will be placed on IV antibiotic therapy. For such, culture and sensitivity is pending on the urine culture, but that is from 10/06/2021. We will wait for more recent ones to come back in as well. REVIEW OF SYSTEMS: The patient is unable to give any type of a meaningful review of systems as the patient is markedly confused and disoriented. PAST MEDICAL HISTORY: Include eye problems with glaucoma, dementia, heart failure, colostomy, uterine cancer, uterine anomaly, uterine problems, renal disease, musculoskeletal problems, arthritis, osteoarthritis, influenza vaccination. PAST SURGICAL HISTORY: Hysterectomy. ALLERGIES: MORPHINE. SOCIAL HISTORY: The patient has about a [id number] history of smoking. Denies alcohol or drug use and otherwise unable to give any further history. She is a FULL CODE. FAMILY HISTORY: Noncontributory. OBJECTIVE: VITAL SIGNS: Blood pressure 112/60, respiratory rate 18, pulse 76, afebrile, at 97% on room air. GENERAL: The patient is alert, but confused, disoriented. HEENT: The patient's head was atraumatic, normocephalic. Eyes: PERRLA without jaundice. The mouth and throat were normal. NECK: Supple. LUNGS: Diminished throughout, poor movement of air. CARDIOVASCULAR: Irregularly irregular rhythm. ABDOMEN: Protuberant, soft, nontender. The patient pulled off her colostomy area of her lower abdomen. The nurses are cleaning out the stool, has been spreading out over the floor. EXTREMITIES: No clubbing, cyanosis, nor edema. NEUROLOGIC: The patient was alert, but confused, disoriented x3. LABORATORY DATA: The patient's labs, as noted, shows greater than 40 white blood cells per high powered field. Hemoglobin and hematocrit 10 and 31. Sodium and potassium 138 and 3.5, carbon dioxide 11, anion gap of 21. The patient's blood sugar is in the 130s, stable. BNP of 690. Albumin slightly low at 3. IMPRESSION: Acute metabolic encephalopathy, urinary tract infection, dementia, Alzheimer's type, moderate protein malnutrition, hypokalemia, acute on top of chronic renal failure with a BUN of 60, creatinine of 5.6, hyperglycemia. PLAN: The patient will be continued to be monitored carefully, fluids, monitoring there. Continue with IV antibiotic therapy and make further evaluation there. The patient also has a possible colitis, as well as a urinary tract infection. LAURA/EVELYN DR: Loreto TID: [id number]
[2021-10-09 06:06] VITALS: BP 110/71
[2021-10-09] MEDS: LACTOBACILLUS RHAMNOSUS GG 1 CAPSULE. PO SCH (08:10)
[2021-10-09] MEDS: PANTOPRAZOLE 40 MG TABLET. PO SCH (08:10)
[2021-10-09] MEDS: risperiDONE 1 MG TABLET. PO SCH (08:10)
[2021-10-09] MEDS: AMOXICILLIN/K CLAV 500/125MG TABLET. PO SCH (08:10)
[2021-10-09] MEDS: POTASSIUM CHLORIDE 20 MEQ TABLET.ER. PO SCH (08:10)
[2021-10-09] MEDS: LISINOPRIL 20 MG TABLET PO SCH (08:11)
[2021-10-09 13:40] LABS: CALCIUM 7.8 mg/dL (8.5-10.1); CREATININE 1.8 mg/dL (0.6-1.0); GFR 27.1; POTASSIUM 3.4 mmol/L (3.5-5.1)
[2021-10-09 13:41] VITALS: BP 110/67
--- NOTE | 2021-10-09 19:09 | DS ---
HOSPITAL COURSE: This 81-year-old female came in to the Emergency Room markedly confused with syncopal spells, was found to have an elevated creatinine of 5.6 or so, she was extremely dehydrated and her BUN was like 60, it has come down to 35 and 1.8. Blood sugars were markedly improved. She did show also a low potassium of 3. She was given additional potassium supplement, taken off normal saline when she came in and her sodium was up at 151. The patient's hemoglobin was 10.4 and 31. The patient also was noted on x-rays and CAT scans to have a possibility of colitis. She has a colostomy. Also, she had a superimposed possible infectious disease in her lung, placed on Unasyn IV, and did extremely well with that. As noted, her creatinine came down. Her vital signs remain really, really pretty good overall. Some of the problems facing this patient's course obviously was dehydration and overall care of her colostomy. She will need home health as a backup for this family. The patient made good progress. She was discharged home. FINAL DIAGNOSES: Includes that of colitis; pneumonitis; history of COVID-19, within the last 2-3 weeks; hypokalemia; acute on top of chronic renal failure; chronic anemia; dementia, Alzheimer type; moderate protein malnutrition; urinary tract infection, the bacteria was Staphylococcus epidermidis; metabolic encephalopathy. We will continue to encourage fluids, monitor potassium, get her some home health with [facility] and make further evaluation. She will be on a heart healthy diet. LINDSAY DR: Loreto TID: [id number]
== END 2021-10-09 15:30 | disposition home or self-care (01) | DRG 177 ==
LOC: ER 15:25 → 1 SOUTH 10-07 14:48 → UNDOADMIN 10-07 17:06
PROVIDERS: ADMIT Family Medicine; ATTEND Family Medicine
DX: J15.6 Pneumonia due to other Gram-negative bacteria (principal); G93.41 Metabolic encephalopathy; N17.9 Acute kidney failure, unspecified; E44.0 Moderate protein-calorie malnutrition; N30.00 Acute cystitis without hematuria; I13.0 Hypertensive heart and chronic kidney disease with heart failure and stage 1 through stage 4 chronic kidney disease, or unspecified chronic kidney disease; J15.9 Unspecified bacterial pneumonia; K52.9 Noninfective gastroenteritis and colitis, unspecified; D64.9 Anemia, unspecified; E86.0 Dehydration; E87.6 Hypokalemia; F02.80 Dementia in other diseases classified elsewhere, unspecified severity, without behavioral disturbance, psychotic disturbance, mood disturbance, and anxiety; G30.9 Alzheimer's disease, unspecified; Z20.822 Contact with and (suspected) exposure to COVID-19; I48.91 Unspecified atrial fibrillation; I50.9 Heart failure, unspecified; F41.9 Anxiety disorder, unspecified; M19.90 Unspecified osteoarthritis, unspecified site; R73.9 Hyperglycemia, unspecified; B95.8 Unspecified staphylococcus as the cause of diseases classified elsewhere; N18.9 Chronic kidney disease, unspecified; Z85.42 Personal history of malignant neoplasm of other parts of uterus; Z86.16 Personal history of COVID-19; Z87.891 Personal history of nicotine dependence; Z90.710 Acquired absence of both cervix and uterus; Z93.3 Colostomy status; Z88.5 Allergy status to narcotic agent; Z68.25 Body mass index [BMI] 25.0-25.9, adult
CPT/HCPCS: 36415; 70450; 71045; 74176; 76770; 80048; 80053; 81001; 83880; 85025; 87077; 87086; 87426; 93005; 96361; 96365; 96375; 96376; J0295; J0696; J1200; J2405; J2765; J3480; U0003; 99285-25; J7030

== ENCOUNTER 2021-10-13 23:17 | Inpatient (IN) | payer OTHER ==
[~2021-10-13] VITALS: Ht 160 cm; Wt 62.2 kg
--- NOTE | 2021-10-13 23:23 | PHYS DOC ---
Past History Past Medical History: A-Fib, Anxiety, Arthritis, CAD, CHF, COPD, Dementia, Hypertension, Other Additional Past Medical Histor: Hypokalemia (BHUPINDER STEWART MD) Past Surgical History: Colectomy, Hysterectomy Additional Past Surgical Histo: uterine cancer, colon resection, colostomy (BHUPINDER STEWART MD) Smoking: Non-smoker Alcohol Use: None Drug Use: None (BHUPINDER STEWART MD) General Adult HPI: HPI: ".. I want to go home... I was just here.. " I don't like staying .. here very much... .. Is my daughter here... to take me home... " I am sleepy.. I want to go to my bed...".. " Are you guys going to let me .. " " want to go home.." wheres my daughter..." You guys are funny" " Where my daughter.. You going stick me... again.. . Where's my daughter.. I hit my head.. Wheres my daughter.. " " I don't want to be .... I do not want no baby... Wheres my daughter..."? " What the shit... " Where's my daughter,," " You going to let me go to sleep" .. Wheres my daughter,, :':' " are you ass hole nurses... " " Wheres my daughter... " Patient is a 81 year old female who presents with above hx and complaints of trip and fall then vomiting hx. Pt. fell or had near syncope/ syncope event striking the Rt side of her head. Pt. here recent for similar presentations. Pt seen in ED 10/06 and Admitted 10/[address] Palmer. and discharged 10/08 to home. Previous laceration on the right side of her mu-ism has been reopened with current fall. Patient initially seen on ED visit 10/06 for increased dizziness, fatigue, nausea, vomiting, diarrhea and dehydration. Patient remains markedly confused and disoriented. Patient has a constant reframe of asking "where my daughter ". Pt. patient's discharge diagnosis from last visit included colitis, pneumonitis, COVID-19 in the last 2 to 3 weeks, hypokalemia, acute on chronic renal failure, chronic anemia, dementia, Alzheimer's type, moderate protein malnutrition, urinary tract infection, metabolic encephalopathy, staphylococcal epidermidis, hypokalemia. Patient does have past medical history of also glaucoma, heart failure, colostomy, uterine cancer, acute on chronic renal failure, gait disorder, arthritis, osteoarthritis,. Patient has had hysterectomy for the uterine cancer. Patient has approximately 47-zsyh-hold smoking history does not use alcohol or other drugs. Patient remains a full code. Patient normally follows with Dr. Palmer. Daughter arrives. Advised her mother stays with pt two son's who she lives with and they seen her fall. Apparently was getting up to go to bath room and leg gave out, pt fell and hit her head . Pt. then started vomiting. (BHUPINDER STEWART MD) Review of Systems: Review of Systems: Constitutional: Denies fever or chills Eyes: Denies change in visual acuity HENT: Denies nasal congestion or sore throat Respiratory: Denies cough or shortness of breath Cardiovascular: Denies chest pain or edema GI: Hx.of , nausea, vomiting, and diarrhea : Denies dysuria Musculoskeletal: Denies back pain or joint pain Integument: Denies rash Neurologic: Denies headache, focal weakness or sensory changes Endocrine: Denies polyuria or polydipsia Lymphatic: Denies swollen glands Psychiatric: Hx of anxiety- and Advance Dementia (BHUPINDER STEWART MD) Family History: Family History: Noncontributory to presentation (BHUPINDER STEWART MD) Current Medications: Current Meds: See nursing for home meds (BHUPINDER STEWART MD) Allergies: Allergies: Allergies Coded Allergies Type Severity Reaction Last Updated Verified morphine Allergy Unknown 09/23/21 Yes (BHUPINDER STEWART MD) Physical Exam: PE: Constitutional:no acute distress, frail in appearance. [] HENT: Normocephalic, has reopened right 1-2 centimeter laceration on right eyebrow and mu-ism, bilateral external ears normal, oropharynx moist, no oral exudates, nose rhinorrhea. Eyes: PERRLA, EOMI, conjunctiva normal, no discharge. Arcus Neck: Normal range of motion, no tenderness, supple, no stridor. I focused Cardiovascular: Tachycardia heart, irregular rate regular rhythm, PMI to left. Lungs & Thorax: Bilateral breath sounds equal apex on auscultation [] basilar crackles Abdomen: Bowel sounds normal, soft, no tenderness, no masses, no pulsatile masses. Surgery scars Skin: Warm, dry, no erythema, no rash. Poor turgor Back: No tenderness, no CVA tenderness. [] Extremities: No tenderness, no cyanosis, no clubbing, ROM intact, ankle edema. Arthritic changes. No cording. Neurologic: Alert and oriented to name and place, moves all extremities on request, does have distal sensory,, no focal deficits noted Per daughter , Psychologic: Affect anxious , judgement obviously impaired, repetitive questions even though answered. (BHUPINDER STEWART MD) EKG: EKG: My interpretation EKG shows a sinus rhythm at 90 bpm. There are PVCs, there is a TV changes in inferior leads. There is some depression ST segments and lead II and III. Abnormal EKG [] My interpretation second EKG shows a sinus rhythm at 77 bpm. There is rightward axis. The earlier strain pattern seems to have resolved. Time of EKG is 0353 minutes (BHUPINDER STEWART MD) Radiology/Procedures: Radiology/Procedures: [[address] [address] IMAGING REPORT Signed PATIENT: JUAN GARCÍA ACCOUNT: [id number] : 1940 LOCATION: ER AGE: 81 SEX: F EXAM STATUS: REG ER ORD. PHYSICIAN: BHUPINDER STEWART MD REASON: fall PROCEDURE: PORTABLE CHEST 1V AP chest x-ray HISTORY: Fall injury. FINDINGS: Heart size normal. Mediastinal silhouette is normal. No pneumothorax, pulmonary opacities or pleural effusions. Bones are unremarkable. IMPRESSION: No acute process. Electronically signed by: John Avelar MD (10/14/2021 2:55 AM) [facility] [place] BY: JOHN AVELAR MD DATE: 10/14/21 0254 CC: AMAYA PALMER MD; BHUPINDER STEWART MD ~[facility]0 0 ][address] [address] IMAGING REPORT Signed PATIENT: JUAN GARCÍA ACCOUNT: [id number] : 1940 LOCATION: ER AGE: 81 SEX: F EXAM STATUS: REG ER ORD. PHYSICIAN: BHUPINDER STEWART MD REASON: fall PROCEDURE: CT HEAD AND CERVICAL SPINE WO CT head without contrast. CT cervical spine without contrast. PQRS statement: CT scans at this facility use dose reduction including either automated exposure control, iterative reconstructions, and /or weight based radiation dosing via mA and kV modification when appropriate to reduce radiation dose to as low as reasonably achievable. HISTORY: Fall injury. Pain. CT head findings: Mild generalized brain atrophy. No intracranial hemorrhage, mass, hydrocephalus, extra-axial fluid collections or infarction. Orbits, mastoids and bones are unremarkable. IMPRESSION: No acute intracranial abnormality. CT cervical spine findings: Craniocervical junction intact. 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 There is 2 mm anterolisthesis C4 on C5 and 2 mm retrolisthesis C3 on C4 associated with disc disease and facet arthritis. No fracture of the cervical spine. Multilevel cervical disc height loss and disc bulges and uncovertebral and facet spurring with spinal canal and neural foraminal stenoses. Lung apices and paraspinal tissues are unremarkable. IMPRESSION: No acute osseous injury of the cervical spine. Cervical disc disease as described above. Electronically signed by: John Avelar MD (10/14/2021 1:36 AM) [facility] [place] BY: JOHN AVELAR MD DATE: 10/14/21126 CC: AMAYA PALMER MD; BHUPINDER STEWART MD ~[facility] 0 (BHUPINDER STEWART MD) Heart Score: C/O Chest Pain: No HEART Score for Chest Pain: HEART Score for Chest Pain Response (Comments) Value History Moderately Suspicious 1 ECG Nonspecific Repolarizatio 1 Age > 65 2 Risk Factors 1 or 2 Risk Factors 1 Troponin < Normal Limit 0 Total 5 Risk Factors: Risk Factors: DM, Current or recent (<one month) smoker, HTN, HLP, family history of CAD, obesity. Risk Scores: Score 0 - 3: 2.5% MACE over next 6 weeks - Discharge Home Score 4 - 6: 20.3% MACE over next 6 weeks - Admit for Clinical Observation Score 7 - 10: 72.7% MACE over next 6 weeks - Early Invasive Strategies (BHUPINDER STEWART MD) Course & Med Decision Making: Course & Med Decision Making Pertinent Labs and Imaging studies reviewed. (See chart for details) Discussed presentation, testing and treatment plan with Dr. Lockwood. Admit to his service, hydrate and replace electrolytes. Laceration cleaned with peroxide, irrigated with normal saline. Bactacin applied. Did not require sutures. Critical care- 60 min. Multiple calls for placement, Discussions with daughter. Management fluids, charting. Impression: 1. Trip and Fall 2. Near Syncope 3. Hypotension- per Dairy Science Teacher and ED reads 4. Advanced dementia 5. Nausea and vomiting 6. Critical hypokalemia 2.4 7. Dehydration 8. Acute on chronic renal failure ( Bun 28/4.1) 9. Hypomagnesium 0.7 10. Diabetes glucose 142 11. Elevated alk phos 133 12. Elevated lipase 397 13. Normocytic anemia hemoglobin 10.3 14. Head Injiury ( old laceration re-opened in fall) 15. Anion gap=22 16. Elevated D-dimer 9.56 17. Head Injury- Contusion and re-opened Rt. eyebrow laceration 2- cm 18. COVID infection 19. Hx Recent Colitis 20. Contusions. 21. UTI 22. Protein malnutrition []Endorsed to Dr. Dawkins at shift change pending transfer to [facility]. Pt admitted to Dr. Palmer. No beds available currently in [facility] due to nursing shortage. Daughter request mother stay at this hospital. Daughter Johanna phone # [phone] (BHUPINDER STEWART MD) Course & Med Decision Making I was aware of patient boarding in the emergency department pending an inpatient bed-hospitals on high volume due to COVID-19 pandemic. Patient did not require my intervention and was admitted to the hospital under Dr. Malcolm. (JESSICA DAWKINS DO) Kenneth Disclaimer: Dragstalin Disclaimer: This electronic medical record was generated, in whole or in part, using a voice recognition dictation system. (BHUPINDER STEWART MD) Departure Departure: Referrals: AMAYA PALMER MD (PCP) Kenneth Disclaimer This chart was dictated in whole or in part using Voice Recognition software in a busy, high-work load, and often noisy Emergency Department environment. It may contain unintended and wholly unrecognized errors or omissions. (BHUPINDER STEWART MD) BHUPINDER STEWART MD Oct 13, 2021 23:23 JESSICA DAWKINS DO Oct 14, 2021 17:58
[2021-10-14] MEDS ORDERED: IV RINGERS SOLUTION,LACTATED 1,000 ML IV SCH ×2 (00:15→01:45)
[2021-10-14 00:34] LABS: BASO % 1 % (0-3); EOS # 0.1 x10^3/uL (0.0-0.7); EOS % 1 % (0-3); HEMATOCRIT 31.6 % (36.0-47.0); HEMOGLOBIN 10.3 g/dL (12.0-15.5); LYMPH # 1.8 x10^3/uL (1.0-4.8); LYMPH % 22 % (24-48); MEAN CORPUSCULAR HEMOGLOBIN 31 pg (25-35); MEAN CORPUSCULAR HGB CONC 33 g/dL (31-37); MEAN CORPUSCULAR VOLUME 94 fL (79-100); MONO # 0.5 x10^3/uL (0.0-1.1); MONO % 7 % (0-9); NEUT # 5.6 x10^3uL (1.8-7.7); NEUT % 70 % (31-73); PLATELET COUNT 168 x10^3/uL (140-400); RED BLOOD COUNT 3.36 x10^6/uL (3.50-5.40); RED CELL DISTRIBUTION WIDTH 14.5 % (11.5-14.5); WHITE BLOOD COUNT 8.1 x10^3/uL (4.0-11.0)
--- NOTE | 2021-10-14 00:52 | EKG ---
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
[2021-10-14 01:00] LABS: ALBUMIN 3.3 g/dL (3.4-5.0); CALCIUM 7.1 mg/dL (8.5-10.1); CREATININE 4.1 mg/dL (0.6-1.0); DIRECT BILIRUBIN 0.1 mg/dL (0.0-0.2); GFR 10.5; MAGNESIUM 0.7 mg/dL (1.8-2.4); TOTAL BILIRUBIN 0.3 mg/dL (0.2-1.0); TOTAL PROTEIN 6.5 g/dL (6.4-8.2)
[2021-10-14 01:03] LABS: POTASSIUM 2.4 mmol/L (3.5-5.1)
[2021-10-14] MEDS ORDERED: POTASSIUM CHLORIDE 20 MEQ TABLET.ER. PO ONE ×2 (01:15→09:00)
[2021-10-14] MEDS ORDERED: MAGNESIUM HYDROXIDE 2,400 MG/30 ML ORAL.SUSP. PO ONE (01:15)
[2021-10-14] MEDS ORDERED: SODIUM BICARB ADULT 8.4% 50 MEQ/50 ML DISP.SYRIN. IV ONE (01:15)
[2021-10-14] MEDS: MUPIROCIN 2% TOPICAL OINTMENT 22GM TUBE. TP SCH ×3 (01:26→21:00)
[2021-10-14] MEDS: POTASSIUM CHLORIDE 20MEQ 100 ML IV SCH ×2 (01:27→03:38)
--- NOTE | 2021-10-14 01:38 | RAD ---
CT head without contrast. CT cervical spine without contrast. PQRS statement: CT scans at this facility use dose reduction including either automated exposure cont rol, iterative reconstructions, and /or weight based radiation dosing via mA and kV modification when appropriate to reduce radiation dose to as low as reasonably achievable. HISTORY: Fall injury. Pain. CT head findings: Mild generalized brain atrophy. No intracranial hemorrhage, mass, hydrocephalus, ex tra-axial fluid collections or infarction. Orbits, mastoids and bones are unremarkable. IMPRESSION: No acute intracranial abnormality. CT cervical spine findings: Craniocervical junction intact. 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 There is 2 mm anterolisthesis C4 on C5 and 2 mm retrolisthesis C3 on C4 associated with disc disease and facet arthritis. No fracture of the cervical spine. Multilevel cervical disc height loss and disc bulges and uncovertebral and facet spurring with spinal canal and neural foraminal stenoses . Lung apices and paraspinal tissues are unremarkable. IMPRESSION: No acute osseous injury of the cervical spine. Cervical disc disease as described above. Electronically signed by: Paresh Avelar MD (10/14/2021 1:36 AM) [facility]
[2021-10-14] MEDS ORDERED: ONDANSETRON PF 4 MG/2 ML VIAL. IVP PRN (01:45)
[2021-10-14] MEDS ORDERED: ACETAMINOPHEN 325 MG TABLET PO PRN (01:45)
[2021-10-14 02:27] LABS: INFLUENZA A PATIENT NEGATIVE (NEGATIVE); INFLUENZA B PATIENT NEGATIVE (NEGATIVE)
[2021-10-14 02:30] LABS: BGAS PH 7.32 (7.35-7.45)
[2021-10-14] MEDS ORDERED: oxyCODONE/APAP 5/325 1 TAB TABLET PO ONE (02:30)
--- NOTE | 2021-10-14 02:57 | RAD ---
AP chest x-ray HISTORY: Fall injury. FINDINGS: Heart size normal. Mediastinal silhouette is normal. No pneumothorax, pulmonary opacities o r pleural effusions. Bones are unremarkable. IMPRESSION: No acute process. Electronically signed by: Paresh Avelar MD (10/14/2021 2:55 AM) [facility] [place]
--- NOTE | 2021-10-14 04:41 | EKG ---
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
[2021-10-14 04:54] LABS: BACTERIA,URINE FEW /HPF (0-FEW); BILIRUBIN,URINE NEG (NEG); CLARITY,URINE HAZY; COLOR,URINE YELLOW; GLUCOSE,URINE NEG (NEG); NITRITE,URINE NEG (NEG); RBC,URINE OCC /HPF (0-2); SQUAMOUS EPITHELIAL CELL,UR MOD /LPF; UROBILINOGEN,URINE 0.2 mg/dL (0.2 mg/dL); WBC,URINE >40 /HPF (0-4)
[2021-10-14 04:55] LABS: YEAST,URINE PRESENT /HPF
[2021-10-14 07:36] LABS: CREATININE 4.3 mg/dL (0.6-1.0); GFR 9.9; POTASSIUM 3.4 mmol/L (3.5-5.1)
[2021-10-14 07:42] LABS: TOTAL BILIRUBIN 0.3 mg/dL (0.2-1.0); TOTAL PROTEIN 6.1 g/dL (6.4-8.2)
[2021-10-14] MEDS ORDERED: IPRATRPIUM/ALBUTEROL 0.5/2.5MG 3 ML NEBU. NEB SCH (08:00)
[2021-10-14 14:25] VITALS: BP 111/75
[2021-10-14 19:54] VITALS: BP 102/62
[2021-10-14 23:19] VITALS: BP 107/73
[2021-10-15] MEDS: IV RINGERS SOLUTION,LACTATED 1,000 ML IV SCH ×3 (04:28→21:29)
[2021-10-15 05:46] VITALS: BP 100/61
[2021-10-15 06:25] LABS: BASO % 1 % (0-3); EOS # 0.1 x10^3/uL (0.0-0.7); EOS % 2 % (0-3); HEMATOCRIT 28.1 % (36.0-47.0); HEMOGLOBIN 9.4 g/dL (12.0-15.5); LYMPH # 1.5 x10^3/uL (1.0-4.8); LYMPH % 21 % (24-48); MEAN CORPUSCULAR HEMOGLOBIN 31 pg (25-35); MEAN CORPUSCULAR HGB CONC 33 g/dL (31-37); MEAN CORPUSCULAR VOLUME 94 fL (79-100); MONO # 0.5 x10^3/uL (0.0-1.1); MONO % 8 % (0-9); NEUT # 4.9 x10^3uL (1.8-7.7); NEUT % 69 % (31-73); PLATELET COUNT 175 x10^3/uL (140-400); RED CELL DISTRIBUTION WIDTH 14.6 % (11.5-14.5); WHITE BLOOD COUNT 7.1 x10^3/uL (4.0-11.0)
[2021-10-15 06:30] LABS: CALCIUM 7.1 mg/dL (8.5-10.1); CREATININE 2.8 mg/dL (0.6-1.0); GFR 16.3; POTASSIUM 3.5 mmol/L (3.5-5.1)
[2021-10-15] MEDS: MUPIROCIN 2% TOPICAL OINTMENT 22GM TUBE. TP SCH ×2 (09:00→21:00)
[2021-10-15] MEDS: PANTOPRAZOLE 40 MG TABLET. PO SCH (10:08)
[2021-10-15] MEDS: risperiDONE 1 MG TABLET. PO SCH ×2 (10:08→21:30)
[2021-10-15] MEDS: POTASSIUM CHLORIDE 20 MEQ TABLET.ER. PO SCH (10:08)
[2021-10-15] MEDS: LISINOPRIL 20 MG TABLET PO SCH (10:09)
[2021-10-15 10:43] VITALS: BP 131/75
--- NOTE | 2021-10-15 12:40 | NUR ---
NURS NOTE PT IS AWAKE AND ALERT IN BED. PT TOOK MORNING MEDS WITHOUT ISSUE BUT IS INTERMITTENTLY CONFUSED/FORGETFUL. FROM PREVIOUSLY ADMITTED, THIS IS PTS BASELINE/. PT AWAKE IN BED WATCHING TV. ALL NEEDS MET AT THIS TIME.
[2021-10-15 14:22] VITALS: BP 99/62
--- NOTE | 2021-10-15 18:45 | HP ---
DATE OF SERVICE: 10/15/2021 ADMIT DATE: 10/14/2021 HISTORY OF PRESENT ILLNESS: A 81-year-old female came in, apparently been falling and striking the right side of her head. The patient had previous admissions for such workup. The patient had a laceration to the right mormon area recurrent fall. She notes increased dizziness, fatigue, nausea, vomiting, diarrhea and dehydration are all present. The patient has severe Alzheimer's disease. The patient admitted for further evaluation of her lightheadedness, dizziness and head trauma with mild concussion. PAST MEDICAL HISTORY: Uterine cancer, colon cancer with colostomy, severe dementia Alzheimer type, hysterectomy, osteoarthritis, musculoskeletal disease. ALLERGIES: MORPHINE. SOCIAL HISTORY: The patient had no recent history of smoking or drug use, however, used to be a heavy smoker. The patient is a DNR. REVIEW OF SYSTEMS: The patient denies any recent weight loss, weight gain. Otherwise, the patient is pretty much a poor historian and gives contradictory answers. FAMILY HISTORY: Noncontributory. OBJECTIVE: VITAL SIGNS: Blood pressure 103/75, respiratory rate 20, pulse 70, afebrile. HEENT: The patient's head was atraumatic, normocephalic. Eyes: PERRLA without jaundice. The mouth and throat were normal. The patient had a laceration to the right side of her head and eyes were PERRL. The patient has poor dentition. NECK: Supple. LUNGS: Diminished throughout. CARDIAC: Regular sinus rhythm. ABDOMEN: Soft, scaphoid, very thin individual. EXTREMITIES: Without clubbing, cyanosis, nor edema, generalized weakness. MUSCULOSKELETAL: Muscle loss. LABORATORY DATA: The patient came in through the ER, potassium was low at 2.4, BUN 28, creatinine 4.1, showing marked dehydration and loss of her not taking her medications. Urine shows greater than 40 white blood cells per high-powered field. IMPRESSION: Hypokalemia, urinary tract infection, multiple falls, mild concussion, laceration to the right side of the head, dementia Alzheimer type. The patient continued to be monitored carefully, fluids, potassium supplementation and make further evaluation on her as indicated per those results. LAURA/DIANA DR: Loreto TID: [id number]
[2021-10-15 20:04] VITALS: BP 97/55
[2021-10-15] MEDS: CEPHALEXIN 250 MG CAPSULE PO SCH (21:30)
[2021-10-15] MEDS: traZODone 50 MG TABLET. PO PRN (21:30)
[2021-10-15] MEDS: DONEPEZIL HCL 10 MG TABLET PO SCH (21:30)
[2021-10-15 23:54] VITALS: BP 83/53
[2021-10-16 06:01] VITALS: BP 100/61
[2021-10-16 06:16] LABS: BASO % 1 % (0-3); EOS # 0.1 x10^3/uL (0.0-0.7); EOS % 1 % (0-3); HEMATOCRIT 23.6 % (36.0-47.0); HEMOGLOBIN 7.9 g/dL (12.0-15.5); LYMPH # 1.5 x10^3/uL (1.0-4.8); LYMPH % 31 % (24-48); MEAN CORPUSCULAR HEMOGLOBIN 31 pg (25-35); MEAN CORPUSCULAR HGB CONC 33 g/dL (31-37); MEAN CORPUSCULAR VOLUME 94 fL (79-100); MONO # 0.4 x10^3/uL (0.0-1.1); MONO % 8 % (0-9); NEUT # 2.8 x10^3uL (1.8-7.7); NEUT % 60 % (31-73); PLATELET COUNT 135 x10^3/uL (140-400); RED BLOOD COUNT 2.51 x10^6/uL (3.50-5.40); RED CELL DISTRIBUTION WIDTH 14.6 % (11.5-14.5); WHITE BLOOD COUNT 4.8 x10^3/uL (4.0-11.0)
[2021-10-16 06:22] LABS: CALCIUM 6.8 mg/dL (8.5-10.1); CREATININE 1.8 mg/dL (0.6-1.0); GFR 27.1; POTASSIUM 3.3 mmol/L (3.5-5.1)
[2021-10-16] MEDS: risperiDONE 1 MG TABLET. PO SCH ×2 (09:33→20:26)
[2021-10-16] MEDS: PANTOPRAZOLE 40 MG TABLET. PO SCH (09:33)
[2021-10-16] MEDS: LISINOPRIL 20 MG TABLET PO SCH (09:33)
[2021-10-16] MEDS: CEPHALEXIN 250 MG CAPSULE PO SCH ×2 (09:33→20:28)
[2021-10-16] MEDS: POTASSIUM CHLORIDE 20 MEQ TABLET.ER. PO SCH (09:33)
[2021-10-16] MEDS: MUPIROCIN 2% TOPICAL OINTMENT 22GM TUBE. TP SCH ×2 (09:50→20:29)
[2021-10-16 10:43] VITALS: BP 125/69
--- NOTE | 2021-10-16 11:16 | NUR ---
NURS NOTE PT IS A&OX4 AND SITTING IN BED. PT DENIES ANY PAIN OR PUKING OF THIS MORNING DURING MEDICATION ADMINISTRATION. THIS RN CHANGED R EYE BANDAGE AND APPLIED OINTMENT. PT STATES SHE IS GOING TO REST NOW. ALL NEEDS MET AT THIS TIME.
[2021-10-16 15:58] VITALS: BP 110/61
[2021-10-16 19:00] VITALS: BP 128/70
[2021-10-16] MEDS: DONEPEZIL HCL 10 MG TABLET PO SCH (20:25)
[2021-10-16] MEDS: traZODone 50 MG TABLET. PO PRN (20:28)
[2021-10-16 23:00] VITALS: BP 96/54
[2021-10-16 23:11] LABS: FECAL OB PT NEGATIVE (NEG)
[2021-10-17 05:00] VITALS: BP 110/67
[2021-10-17 06:53] LABS: CREATININE 1.3 mg/dL (0.6-1.0); GFR 39.5; POTASSIUM 3.3 mmol/L (3.5-5.1)
[2021-10-17 06:55] LABS: HEMATOCRIT 23.6 % (36.0-47.0); HEMOGLOBIN 7.9 g/dL (12.0-15.5)
[2021-10-17] MEDS: MUPIROCIN 2% TOPICAL OINTMENT 22GM TUBE. TP SCH ×2 (09:00→20:03)
[2021-10-17] MEDS ORDERED: POTASSIUM CHLORIDE 20 MEQ TABLET.ER. PO SCH (09:00)
[2021-10-17] MEDS: LISINOPRIL 5 MG TABLET. PO SCH (09:20)
[2021-10-17] MEDS: PANTOPRAZOLE 40 MG TABLET. PO SCH (09:20)
[2021-10-17] MEDS: POTASSIUM CHLORIDE 20 MEQ TABLET.ER. PO SCH ×2 (09:21→20:03)
[2021-10-17] MEDS: risperiDONE 1 MG TABLET. PO SCH ×2 (09:23→20:02)
[2021-10-17] MEDS: CEPHALEXIN 250 MG CAPSULE PO SCH ×2 (09:23→20:02)
--- NOTE | 2021-10-17 09:51 | PN ---
SUBJECTIVE: The patient fell at home, which is very common for her and suffered a mild concussion with a laceration to the right side of the face, which seems to be healing up, although draining quite a bit and has had bandages changed there. Otherwise, the patient is resting fairly comfortably in usual self. She has some memory difficulties, but other than that seems to be resting fairly comfortably. OBJECTIVE: VITAL SIGNS: Blood pressure 128/70, respiratory rate 18, pulse 70, afebrile, 95 on room air. GENERAL: The patient alert, oriented to place, confused, disoriented otherwise, contusion to the right side of the face, laceration appears to be healing fairly well. LUNGS: Clear. CARDIOVASCULAR: Irregularly irregular rhythm. ABDOMEN: Soft, nontender. EXTREMITIES: No clubbing, cyanosis or edema. NEUROLOGICAL: Intact. The patient otherwise is continuing to be monitored carefully. IMPRESSION: Concussion, falling at home, syncopal spells, lightheadedness, dementia, Alzheimer's type. PLAN: Continue with PT, OT and monitoring her wound and any other neurological dysfunction. LAURA/RICKY/BLAS DR: LAURA/salvatore TID: [id number]
[2021-10-17 10:43] VITALS: BP 115/64
--- NOTE | 2021-10-17 11:11 | NUR ---
NURS NOTE PT IS AWAKE AND ALERT THIS MORNING. SHE WORKED WITH PT/OT AND TOLERATED WELL. PT EYE LAC LOOKS CLEAN AND IS OPEN TO AIR. PT REPORTS NO PAIN OR NAUSEA. WILL CONTINUE TO MONITOR. ALL NEEDS MET AT THIS TIME.
[2021-10-17 15:00] VITALS: BP 129/77
[2021-10-17] MEDS: DONEPEZIL HCL 10 MG TABLET PO SCH (20:02)
[2021-10-17] MEDS: traZODone 150 MG TABLET. PO SCH (20:03)
[2021-10-17] MEDS: LACTOBACILLUS RHAMNOSUS GG 1 CAPSULE. PO SCH (20:03)
[2021-10-17 20:50] VITALS: BP 117/71
--- NOTE | 2021-10-18 00:38 | PN ---
DATE: 10/17/2021 SUBJECTIVE: A 81-year-old female with mild concussion, fell and injured the right side of her head that seems to be healing up well. The patient apparently has been getting her days and nights mixed up. She stays up at night and tries to sleep during the day. The patient is being worked on to try to get her to a nursing facility. OBJECTIVE: VITAL SIGNS: Blood pressure up to 110/67, decreased lisinopril to 5 mg. Respiratory rate 18, pulse 77, afebrile. GENERAL: The patient is alert and oriented x 3. Speech fluent, spontaneous, appropriate. LUNGS: Diminished. She seems to be a little bit more with it than she has been of late. Physical and Occupational Therapy working with her trying to get her mobilized to get her into a nursing facility to help her with further rehabilitation. Otherwise, she seems to be making steady progress. Her ostomy site seems to be working well and she has not been off like she has in previous hospitalizations. IMPRESSION AND PLAN: Fall at home, mild concussion, continue rehab and hopefully ready for discharge here soon. GERDA/DENEEN DR: Loreto TID: [id number]
[2021-10-18 06:20] VITALS: BP 126/77
[2021-10-18 06:41] LABS: BASO # 0.1 x10^3/uL (0.0-0.2); BASO % 1 % (0-3); EOS # 0.1 x10^3/uL (0.0-0.7); EOS % 1 % (0-3); HEMATOCRIT 23.7 % (36.0-47.0); HEMOGLOBIN 7.8 g/dL (12.0-15.5); LYMPH # 1.7 x10^3/uL (1.0-4.8); LYMPH % 33 % (24-48); MEAN CORPUSCULAR HEMOGLOBIN 31 pg (25-35); MEAN CORPUSCULAR HGB CONC 33 g/dL (31-37); MEAN CORPUSCULAR VOLUME 95 fL (79-100); MONO # 0.4 x10^3/uL (0.0-1.1); MONO % 8 % (0-9); NEUT % 57 % (31-73); PLATELET COUNT 151 x10^3/uL (140-400); RED CELL DISTRIBUTION WIDTH 15.1 % (11.5-14.5); WHITE BLOOD COUNT 5.3 x10^3/uL (4.0-11.0)
[2021-10-18 06:50] LABS: CALCIUM 6.8 mg/dL (8.5-10.1); CREATININE 1.3 mg/dL (0.6-1.0); GFR 39.5; POTASSIUM 3.8 mmol/L (3.5-5.1)
[2021-10-18] MEDS: CEPHALEXIN 250 MG CAPSULE PO SCH (08:14)
[2021-10-18] MEDS: risperiDONE 1 MG TABLET. PO SCH ×2 (08:14→21:33)
[2021-10-18] MEDS: PANTOPRAZOLE 40 MG TABLET. PO SCH (08:14)
[2021-10-18] MEDS: MUPIROCIN 2% TOPICAL OINTMENT 22GM TUBE. TP SCH ×2 (08:14→21:00)
[2021-10-18] MEDS: POTASSIUM CHLORIDE 20 MEQ TABLET.ER. PO SCH ×2 (08:14→21:33)
[2021-10-18] MEDS: LISINOPRIL 5 MG TABLET. PO SCH (08:15)
[2021-10-18] MEDS: LACTOBACILLUS RHAMNOSUS GG 1 CAPSULE. PO SCH ×2 (08:18→21:00)
[2021-10-18] MEDS: FLUCONAZOLE 100 MG TABLET. PO SCH (10:00)
[2021-10-18] MEDS: LORazepam 0.5 MG TABLET PO PRN ×2 (10:00→21:33)
[2021-10-18 11:52] VITALS: BP 126/74
[2021-10-18 16:32] VITALS: BP 108/66
[2021-10-18 19:35] VITALS: BP 113/68
[2021-10-18] MEDS: traZODone 150 MG TABLET. PO SCH (21:33)
[2021-10-18] MEDS: DONEPEZIL HCL 10 MG TABLET PO SCH (21:34)
[2021-10-18 23:14] VITALS: BP 111/63
--- NOTE | 2021-10-18 23:33 | PN ---
SUBJECTIVE: A 81-year-old female who fell, had mild concussion. The patient is still feeling fairly weak. Hemoglobin down to 7.8 and 23. The patient is still having difficulty walking, trying to get her replaced. OBJECTIVE: VITAL SIGNS: Blood pressure 113/68, respiratory rate 18, pulse 70, afebrile. GENERAL: The patient is alert, a baseline for her, she does have dementia, Alzheimer type. HEENT: Concussion throughout face and to the side of her head where she fell seems to be healing up fairly well. Eyes: PERRL. She has backed to mental status, although very weak on her legs. Will continue with physical and occupational therapy. LUNGS: Clear. CARDIOVASCULAR: Stable. ABDOMEN: Soft. IMPRESSION: Concussion secondary to fall at home as well as syncopal spells, lightheadedness, dementia, Alzheimer's type. HOMERO DR: Loreto TID: [id number]
[2021-10-19] MEDS: LACTOBACILLUS RHAMNOSUS GG 1 CAPSULE. PO SCH ×2 (08:20→21:08)
[2021-10-19] MEDS: LISINOPRIL 5 MG TABLET. PO SCH (08:21)
[2021-10-19] MEDS: PANTOPRAZOLE 40 MG TABLET. PO SCH (08:21)
[2021-10-19] MEDS: risperiDONE 1 MG TABLET. PO SCH ×2 (08:21→21:08)
[2021-10-19] MEDS: FLUCONAZOLE 100 MG TABLET. PO SCH (08:21)
[2021-10-19] MEDS: POTASSIUM CHLORIDE 20 MEQ TABLET.ER. PO SCH ×2 (08:21→21:09)
[2021-10-19] MEDS: MUPIROCIN 2% TOPICAL OINTMENT 22GM TUBE. TP SCH ×2 (08:22→21:00)
[2021-10-19 16:16] VITALS: BP 106/54
--- NOTE | 2021-10-19 17:53 | NUR ---
Nursing note. PT in bed verbalized no pain or discomfort. Morning assessments done, medications administered per doctors orders. Care to be continued per doctors orders. PT assisted to the restroom to empty her ostomy bag. PT in bed, bed locked, call light within reach, watching TV, PT verbalized she needs to go to sleep. Will continue to monitor.
--- NOTE | 2021-10-19 19:48 | PN ---
SUBJECTIVE: A 81-year-old female in with syncope following concussion, resting fairly comfortably, making fairly good progress overall. Still very weak, still trying to get her to mobilize and try to find a nursing facility for her. OBJECTIVE: VITAL SIGNS: Otherwise the patient's blood pressure 110/60, respiratory rate 20, pulse 76, afebrile. GENERAL: Baseline for her, she is alert, but not oriented per se since she does have dementia, Alzheimer type, and the patient seems to be making good progress overall. LUNGS: Diminished, but clear. CARDIOVASCULAR: Stable. ABDOMEN: Soft, nontender. We will go ahead and continue to monitor the patient. IMPRESSION AND PLAN: Concussion, multiple falls, syncope, lightheadedness, weakness. Continue to monitor and hopefully ready for discharge soon. DONI DR: Loreto TID: [id number]
[2021-10-19 19:54] VITALS: BP 104/65
[2021-10-19] MEDS: DONEPEZIL HCL 10 MG TABLET PO SCH (21:08)
[2021-10-19] MEDS: traZODone 150 MG TABLET. PO SCH (21:09)
[2021-10-19 23:32] VITALS: BP 103/63
[2021-10-20 05:06] VITALS: BP 105/56
--- NOTE | 2021-10-20 07:05 | NUR ---
Pt at start of shift answered all orientation questions correctly. She does seem forgetful about what to do. After each care, pt asked,"Now what do I do?" Pt hollers out occasionally through the night. She slept off and on. Pt able to care for her ostomy independently. reilly
[2021-10-20] MEDS: LISINOPRIL 5 MG TABLET. PO SCH (08:18)
[2021-10-20] MEDS: LACTOBACILLUS RHAMNOSUS GG 1 CAPSULE. PO SCH ×2 (08:18→21:27)
[2021-10-20] MEDS: risperiDONE 1 MG TABLET. PO SCH ×2 (08:19→21:27)
[2021-10-20] MEDS: PANTOPRAZOLE 40 MG TABLET. PO SCH (08:19)
[2021-10-20] MEDS: FLUCONAZOLE 100 MG TABLET. PO SCH (08:19)
[2021-10-20] MEDS: POTASSIUM CHLORIDE 20 MEQ TABLET.ER. PO SCH ×2 (08:19→21:28)
[2021-10-20] MEDS: MUPIROCIN 2% TOPICAL OINTMENT 22GM TUBE. TP SCH ×2 (08:20→21:00)
[2021-10-20 11:34] VITALS: BP 99/61
[2021-10-20 16:00] VITALS: BP 117/70
--- NOTE | 2021-10-20 16:38 | NUR ---
NURS NOTE PT STATES THAT SHE HAS NO PAIN OR DISCOMFORT AND THAT SHE IS TIRED. PT IS A&OX4. HEAD LAC IS CLOSED AND BRUISED HEALING. MEDS PASSED, ASSESSMENTS DONE, PT RESTING IN BED. ALL NEEDS MET AT THIS TIME.
[2021-10-20 19:59] VITALS: BP 108/65
[2021-10-20] MEDS: DONEPEZIL HCL 10 MG TABLET PO SCH (21:27)
[2021-10-20] MEDS: traZODone 150 MG TABLET. PO SCH (21:27)
--- NOTE | 2021-10-20 21:45 | PN ---
SUBJECTIVE: A 81-year-old female in with syncope, concussion, seems to be making fairly good progress, still a little bit disoriented. OBJECTIVE: VITAL SIGNS: Blood pressure 117/70, respiratory rate 16, pulse 76, afebrile. GENERAL: The patient is alert and oriented x3. Otherwise except for her lack of memory, she is at least oriented presently. The patient otherwise no complaints. LUNGS: Diminished throughout, poor movement of air. CARDIOVASCULAR: Stable. ABDOMEN: Soft, nontender, no rebounding. No guarding. The patient continues to be monitored carefully and will make further evaluation on her as indicated. Her wound on the right side of her head seems to be healing up. IMPRESSION: Concussion secondary to syncope, generalized weakness. PLAN: Continue to monitor the patient. Hopefully, ready for discharge here. KT DR: Loreto TID: [id number]
[2021-10-20 23:47] VITALS: BP 114/68
[2021-10-21 05:52] VITALS: BP 114/71
[2021-10-21] MEDS: LACTOBACILLUS RHAMNOSUS GG 1 CAPSULE. PO SCH ×2 (08:20→20:25)
[2021-10-21] MEDS: LISINOPRIL 5 MG TABLET. PO SCH (08:20)
[2021-10-21] MEDS: PANTOPRAZOLE 40 MG TABLET. PO SCH (08:21)
[2021-10-21] MEDS: POTASSIUM CHLORIDE 20 MEQ TABLET.ER. PO SCH ×2 (08:21→20:24)
[2021-10-21] MEDS: risperiDONE 1 MG TABLET. PO SCH ×2 (08:21→20:24)
[2021-10-21] MEDS: MUPIROCIN 2% TOPICAL OINTMENT 22GM TUBE. TP SCH ×2 (09:00→20:26)
[2021-10-21 11:33] VITALS: BP 120/69
[2021-10-21 19:00] VITALS: BP 111/70
[2021-10-21] MEDS: LORazepam 0.5 MG TABLET PO PRN (20:23)
[2021-10-21] MEDS: traZODone 150 MG TABLET. PO SCH (20:24)
[2021-10-21] MEDS: DONEPEZIL HCL 10 MG TABLET PO SCH (20:25)
--- NOTE | 2021-10-21 21:58 | PN ---
DATE: 10/21/2021 SUBJECTIVE: The patient in with generalized weakness, mild concussion. Resting fairly comfortably, still feeling weak. Need to get her evaluated for possible shelter. OBJECTIVE: VITAL SIGNS: Blood pressure 120/70, respiratory rate 18, pulse 74, afebrile, room air 96. GENERAL: The patient alert, baseline mild confusion. HEENT: The patient's wound on the right side of the head healing well. Eyes PERRL, baseline. Mouth and throat: Poor dentition. LUNGS: Clear. CARDIOVASCULAR: Stable. IMPRESSION: Concussion secondary to fall, generalized weakness, history of multiple falls at home, mild concussion as indicated. PLAN: Continue to monitor and try placement as noted above. LAURA/PB DR: LAURA/salvatore TID: [id number]
[2021-10-22 06:38] VITALS: BP 112/67
[2021-10-22] MEDS: LACTOBACILLUS RHAMNOSUS GG 1 CAPSULE. PO SCH (07:44)
[2021-10-22] MEDS: risperiDONE 1 MG TABLET. PO SCH (07:44)
[2021-10-22] MEDS: POTASSIUM CHLORIDE 20 MEQ TABLET.ER. PO SCH (07:45)
[2021-10-22] MEDS: PANTOPRAZOLE 40 MG TABLET. PO SCH (07:45)
[2021-10-22] MEDS: LISINOPRIL 5 MG TABLET. PO SCH (07:45)
[2021-10-22] MEDS: MUPIROCIN 2% TOPICAL OINTMENT 22GM TUBE. TP SCH (07:47)
[2021-10-22 10:25] VITALS: BP 118/70
--- NOTE | 2021-10-22 15:03 | NUR ---
PATIENT IS DISCHARGED TO [facility], REPORT GIVEN TO THE STAFF NURSE. PATIENT LEFT UNIT VIA W/C ACCOMP BY THIS RN. PATIENT IS TAKEN TO THE REHAB PROVIDED BY FACILITY.
--- NOTE | 2021-11-17 18:58 | DS ---
DATE OF DISCHARGE: 10/22/2021 HOSPITAL COURSE: A 81-year-old female came in with syncope, concussion. The patient was admitted for further evaluation of her concussion. The patient was very weak and had been having syncopal spells and lightheadedness. She did have a hemoglobin down to 7.8 and 23. The patient received physical and occupational therapy and she was COVID negative. Stool was Hemoccult negative. Urine did show greater than 40 white blood cells per high powered field and she was treated appropriately and she was on iron deficiency anemia. The patient's x-rays were basically unremarkable. The patient made good progress during the rest of her hospitalization. She was transferred to a rehab facility for further evaluation and treatment. IMPRESSION: Syncope with concussion, urinary tract infection with no discernible bacteria found at this time, lightheadedness, iron deficiency anemia and dementia with Alzheimer's type. MAMTA DR: Loreto TID: [id number]
== END 2021-10-22 15:05 | DRG 73 ==
LOC: ER 23:17 → 1 SOUTH 10-14 01:35
PROVIDERS: ADMIT Family Medicine; ATTEND Family Medicine
DX: G90.8 Other disorders of autonomic nervous system (principal); N17.0 Acute kidney failure with tubular necrosis; S06.0X9A Concussion with loss of consciousness of unspecified duration, initial encounter; N39.0 Urinary tract infection, site not specified; I13.0 Hypertensive heart and chronic kidney disease with heart failure and stage 1 through stage 4 chronic kidney disease, or unspecified chronic kidney disease; E44.0 Moderate protein-calorie malnutrition; E86.0 Dehydration; E87.6 Hypokalemia; D64.9 Anemia, unspecified; E11.22 Type 2 diabetes mellitus with diabetic chronic kidney disease; E83.42 Hypomagnesemia; F02.80 Dementia in other diseases classified elsewhere, unspecified severity, without behavioral disturbance, psychotic disturbance, mood disturbance, and anxiety; G30.9 Alzheimer's disease, unspecified; G31.9 Degenerative disease of nervous system, unspecified; I25.10 Atherosclerotic heart disease of native coronary artery without angina pectoris; I48.91 Unspecified atrial fibrillation; I50.9 Heart failure, unspecified; J44.9 Chronic obstructive pulmonary disease, unspecified; M43.12 Spondylolisthesis, cervical region; M47.819 Spondylosis without myelopathy or radiculopathy, site unspecified; N18.9 Chronic kidney disease, unspecified; R29.6 Repeated falls; S01.111A Laceration without foreign body of right eyelid and periocular area, initial encounter; S01.81XA Laceration without foreign body of other part of head, initial encounter; W01.0XXA Fall on same level from slipping, tripping and stumbling without subsequent striking against object, initial encounter; Y92.009 Unspecified place in unspecified non-institutional (private) residence as the place of occurrence of the external cause; Z66 Do not resuscitate; Z85.038 Personal history of other malignant neoplasm of large intestine; Z85.42 Personal history of malignant neoplasm of other parts of uterus; Z87.891 Personal history of nicotine dependence; Z90.710 Acquired absence of both cervix and uterus; Z91.81 History of falling; Z93.3 Colostomy status; F41.9 Anxiety disorder, unspecified; M19.90 Unspecified osteoarthritis, unspecified site; D50.9 Iron deficiency anemia, unspecified; Z20.822 Contact with and (suspected) exposure to COVID-19; Z86.16 Personal history of COVID-19; I95.9 Hypotension, unspecified
CPT/HCPCS: 36415; 36600; 70450; 71045; 72125; 80048; 80053; 80076; 81001; 82150; 82274; 82550; 82803; 83540; 83550; 83690; 83735; 83880; 84443; 84484; 85014; 85018; 85025; 85379; 85610; 85730; 87040; 87086; 87106; 87426; 87804; 93005; 96374; J2405; J3480; J7120; U0003; 97110; 97530; 99291-25

== ENCOUNTER 2022-01-08 17:16 | Emergency (ER) | payer OTHER ==
[~2022-01-08] VITALS: Ht 160 cm; Wt 59.0 kg
--- NOTE | 2022-01-08 18:11 | PHYS DOC ---
Past History Past Medical History: A-Fib, Anxiety, Arthritis, CAD, CHF, Constipation, COPD, Dementia, Hypertension, UTI, Other Additional Past Medical Histor: Hypokalemia Past Surgical History: Colectomy, Hysterectomy Additional Past Surgical Histo: uterine cancer, colon resection, colostomy Smoking: Non-smoker Alcohol Use: None Drug Use: None General Adult HPI: HPI: ".. I worried.. mom been out of the Skilled Nursing about 3 weeks. .. she was in about 10 days.. well she seems more confused than her regular dementia... more weak.. More tired.. stomach hurts more.. I wanted her checked out... " Patient is a 81 year old female who presents with above hx and complaints of generalized weakness, confusion and stomach pain. Pt. has had COVID vaccination and Flu vaccinations. Pt. has past medical hx of Afib, arthritis, HTN, CAD, CHF, Arthritis, Dementia, UTIi. . Pt . follows with Dr. Palmer. Daughter concerned she seem a little off her base line to day. Review of Systems: Review of Systems: Constitutional: Denies fever or chills Eyes: Denies change in visual acuity HENT: Denies nasal congestion or sore throat Respiratory: Denies cough or shortness of breath Cardiovascular: Denies chest pain or edema GI: Denies abdominal pain, nausea, vomiting, bloody stools or diarrhea : Denies dysuria Musculoskeletal: Denies back pain or joint pain Integument: Denies rash Neurologic: Denies headache, focal weakness or sensory changes Endocrine: Denies polyuria or polydipsia Lymphatic: Denies swollen glands Psychiatric: Denies depression or anxiety Note pt. answer she is fine to every question. Advised she just wants to go home and not back to the Skilled Nursing. Family History: Family History: Noncontributory to presentation Current Medications: Current Meds: See nursing for home meds Allergies: Allergies: Morphine makes her nauseated Allergies Coded Allergies Type Severity Reaction Last Updated Verified morphine Adverse Reaction Unknown 10/14/21 Yes Physical Exam: PE: Constitutional: no acute distress, non-toxic appearance. [] HENT: Normocephalic, atraumatic, bilateral external ears normal, oropharynx moist, no oral exudates, nose normal. [] Eyes: PERRLA, EOMI, conjunctiva pale, no discharge. [] Neck: Limited range of motion, no tenderness, supple, no stridor. Kyphosis Cardiovascular: Bradycardia heart rate regular rhythm, no murmur, PMI to the left. Bedside monitor shows a sinus rhythm bradycardia-low voltage no acute morphology Lungs & Thorax: Bilateral breath sounds equal at apex and basilar wheezes on auscultation [] Abdomen: Bowel sounds normal, soft, no tenderness, no masses, no pulsatile masses. Mild distention. Nontender Skin: Warm, dry, no erythema, no rash. Poor turgor. Back: No tenderness, no CVA tenderness. Kyphosis scoliosis Extremities: No tenderness, no cyanosis, no clubbing, ROM intact, no edema. Arthritic changes. Neurologic: Alert and oriented X 3, moves all extremities on request, does have distal sensory but somewhat decrease in feet, no new focal deficits noted per daughter Psychologic: Affect angry that she is at the hospital, judgement does appear to have some dementia and memory issues, mood normal. [] EKG: EKG: My interpretation EKG shows a sinus bradycardia at 60 bpm. No acute morphology time EKG is 1845 hrs. [] Radiology/Procedures: Radiology/Procedures: [[place] [address] IMAGING REPORT Signed PATIENT: JUAN GARCÍA ACCOUNT: [id number] : 1940 LOCATION: ER AGE: 81 SEX: F EXAM STATUS: REG ER ORD. PHYSICIAN: BHUPINDER STEWART MD REASON: Confusion, altered mental status PROCEDURE: CT HEAD WO CONTRAST Exam Date: 01/08/2022 7:[address] HEAD/BRAIN WO Indication: Reason: Confusion, altered mental status / Spl. Instructions: / History: . TECHNIQUE: Head CT was performed without intravenous contrast. One or more of the following dose reduction techniques were utilized: *Automated exposure control (AEC) *Adjustment of mA and/or kV according to patient size *Use of iterative reconstruction technique *CT scan done according to ALARA, or ALARA/IMAGE GENTLY COMPARISON: October 14, 2021 FINDINGS: The ventricles and sulci are prominent consistent with cerebral volume loss. Patchy ill-defined low attenuation areas in the subcortical and periventricular white matter bilaterally are consistent with microvascular disease. There is no evidence of acute intracranial hemorrhage, extra-axial collection, mass effect, midline shift, or acute territorial infarct. No lesion of the skull base or the calvarium is seen. The visualized paranasal sinuses, mastoid air cells and orbits are normal in appearance. IMPRESSION: No evidence for acute intracranial abnormality. Volume loss and microvascular disease. Electronically signed by: Carmen Gregory MD (01/08/2022 8:01 PM) ERNESTO DICTATED AND SIGNED BY: CARMEN GREGORY MD DATE: 01/08/221954 CC: AMAYA PALMER MD; BHUPINDER STEWART MD ~ ][place] [address] IMAGING REPORT Signed PATIENT: JUAN GARCÍA ACCOUNT: [id number] : 1940 LOCATION: ER AGE: 81 SEX: F EXAM STATUS: REG ER ORD. PHYSICIAN: BHUPINDER STEWART MD REASON: Confusion, altered mental status PROCEDURE: CT HEAD WO CONTRAST Exam Date: 01/08/2022 7:[address] HEAD/BRAIN WO Indication: Reason: Confusion, altered mental status / Spl. Instructions: / History: . TECHNIQUE: Head CT was performed without intravenous contrast. One or more of the following dose reduction techniques were utilized: *Automated exposure control (AEC) *Adjustment of mA and/or kV according to patient size *Use of iterative reconstruction technique *CT scan done according to ALARA, or ALARA/IMAGE GENTLY COMPARISON: October 14, 2021 FINDINGS: The ventricles and sulci are prominent consistent with cerebral volume loss. Patchy ill-defined low attenuation areas in the subcortical and periventricular white matter bilaterally are consistent with microvascular disease. There is no evidence of acute intracranial hemorrhage, extra-axial collection, mass effect, midline shift, or acute territorial infarct. No lesion of the skull base or the calvarium is seen. The visualized paranasal sinuses, mastoid air cells and orbits are normal in appearance. IMPRESSION: No evidence for acute intracranial abnormality. Volume loss and microvascular disease. Electronically signed by: Carmen Gregory MD (01/08/2022 8:01 PM) EZEQUIELGAL DICTATED AND SIGNED BY: CARMEN GREGORY MD DATE: 01/08/221954 CC: AMAYA PALMER MD; BHUPINDER STEWART MD ~ Heart Score: C/O Chest Pain: N/A HEART Score for Chest Pain: HEART Score for Chest Pain Response (Comments) Value History Moderately Suspicious 1 ECG Nonspecific Repolarizatio 1 Age > 65 2 Risk Factors 1 or 2 Risk Factors 1 Troponin < Normal Limit 0 Total 5 Risk Factors: Risk Factors: DM, Current or recent (<one month) smoker, HTN, HLP, family history of CAD, obesity. Risk Scores: Score 0 - 3: 2.5% MACE over next 6 weeks - Discharge Home Score 4 - 6: 20.3% MACE over next 6 weeks - Admit for Clinical Observation Score 7 - 10: 72.7% MACE over next 6 weeks - Early Invasive Strategies Course & Med Decision Making: Course & Med Decision Making Pertinent Labs and Imaging studies reviewed. (See chart for details) Follow up with Dr. Palmer. Follow up urine cultures. -Specimen appear to be contaminated will need to recheck on follow-up with Dr. Palmer Daughter and pt requesting discharge. Impression: 1. Viral Syndrome 2. Mild anemia hemoglobin 11.3 3. Mild hypokalemia 3.4 4. Renal insufficiency BUN 23 creatinine 1.4 5. Mild elevation D-dimer 0.60 6. Dementia 7. Constipation 8. UTI- ( Daughter thinks she may already be on antibiotic- Call Dr. Palmer office tomorrow- follow up cath UA results) [] Dragon Disclaimer: Dragon Disclaimer: This electronic medical record was generated, in whole or in part, using a voice recognition dictation system. Departure Departure: Referrals: AMAYA PALMER MD (PCP) Dragon Disclaimer This chart was dictated in whole or in part using Voice Recognition software in a busy, high-work load, and often noisy Emergency Department environment. It may contain unintended and wholly unrecognized errors or omissions. Dragon Disclaimer This chart was dictated in whole or in part using Voice Recognition software in a busy, high-work load, and often noisy Emergency Department environment. It may contain unintended and wholly unrecognized errors or omissions. BHUPINDER STEWART MD Jan 08, 2022 18:11
[2022-01-08] MEDS ORDERED: IV RINGERS SOLUTION,LACTATED 1,000 ML IV SCH (18:30)
--- NOTE | 2022-01-08 19:10 | EKG ---
[address] [address] Test Date: 2022-01-08 Test Time: 18:45:56 Pat Name: JUAN GARCÍA Department: Room: Gender: F Advanced Practice Nurse: KAREN : 1940 Requested By: BHUPINDER STEWART Order Number: [id number] Reading MD: Robe Mcgee MD Measurements Intervals [place] Rate: 60 P: 90 PA: 200 QRS: 24 QRSD: 74 T: 47 QT: 462 QTc: 462 Interpretive Statements SINUS RHYTHM Electronically Signed On 01-10-2022 17:41:31 CDT by Robe Mcgee MD
[2022-01-08 19:32] LABS: BASO % 1 % (0-3); EOS # 0.1 x10^3/uL (0.0-0.7); EOS % 1 % (0-3); HEMATOCRIT 34.2 % (36.0-47.0); HEMOGLOBIN 11.3 g/dL (12.0-15.5); LYMPH # 1.5 x10^3/uL (1.0-4.8); LYMPH % 31 % (24-48); MEAN CORPUSCULAR HEMOGLOBIN 31 pg (25-35); MEAN CORPUSCULAR HGB CONC 33 g/dL (31-37); MEAN CORPUSCULAR VOLUME 95 fL (79-100); MONO # 0.3 x10^3/uL (0.0-1.1); MONO % 7 % (0-9); NEUT # 2.9 x10^3uL (1.8-7.7); NEUT % 61 % (31-73); PLATELET COUNT 192 x10^3/uL (140-400); RED BLOOD COUNT 3.59 x10^6/uL (3.50-5.40); RED CELL DISTRIBUTION WIDTH 13.2 % (11.5-14.5); WHITE BLOOD COUNT 4.7 x10^3/uL (4.0-11.0)
[2022-01-08 19:43] LABS: ANION GAP 12 (6-14); BLOOD UREA NITROGEN 23 mg/dL (7-20); CALCIUM 8.2 mg/dL (8.5-10.1); CARBON DIOXIDE 26 mmol/L (21-32); CHLORIDE 107 mmol/L (98-107); CREATININE 1.4 mg/dL (0.6-1.0); GFR 36.3; GLUCOSE 105 mg/dL (70-99); POTASSIUM 3.4 mmol/L (3.5-5.1); SODIUM 145 mmol/L (136-145)
[2022-01-08 19:48] LABS: INFLUENZA A PATIENT NEGATIVE (NEGATIVE); INFLUENZA B PATIENT NEGATIVE (NEGATIVE)
[2022-01-08 19:56] LABS: ALBUMIN 3.6 g/dL (3.4-5.0); ALK PHOS 79 U/L (46-116); ALT (SGPT) 25 U/L (14-59); AST (SGOT) 19 U/L (15-37); LIPASE 196 U/L (73-393); MAGNESIUM 1.1 mg/dL (1.8-2.4); TOTAL BILIRUBIN 0.2 mg/dL (0.2-1.0); TOTAL PROTEIN 6.4 g/dL (6.4-8.2)
[2022-01-08 19:57] LABS: DIRECT BILIRUBIN < 0.1 mg/dL (0.0-0.2)
--- NOTE | 2022-01-08 20:03 | RAD ---
Exam Date: 01/08/2022 7:[address] HEAD/BRAIN WO Indication: Reason: Confusion, altered mental status / Spl. Instructions: / History: . TECHNIQUE: Head CT was performed without intravenous contrast. One or more of the following dose re duction techniques were utilized: *Automated exposure control (AEC) *Adjustment of mA and/or kV according to patient size *Use of iterative reconstruction technique *CT scan done according to ALARA, or ALARA/IMAGE GENTLY COMPARISON: October 14, 2021 FINDINGS: The ventricles and sulci are prominent consistent with cerebral volume loss. Patchy ill-defined low attenuation areas in the subcortical and periventricular white matter bilaterally are consistent with microvascular disease. There is no evidence of acute intracranial hemorrhage, extra-axial collecti on, mass effect, midline shift, or acute territorial infarct. No lesion of the skull base or the calv arium is seen. The visualized paranasal sinuses, mastoid air cells and orbits are normal in appearanc e. IMPRESSION: No evidence for acute intracranial abnormality. Volume loss and microvascular disease. Electronically signed by: Kennedy Gregory MD (01/08/2022 8:01 PM) [facility]
--- NOTE | 2022-01-08 20:44 | RAD ---
Exam: Acute abdominal series INDICATION: Chest and abdomen TECHNIQUE: Frontal view of chest with upright and supine views the abdomen Comparisons: 10/14/2021 FINDINGS: The cardiomediastinal silhouette and pulmonary vessels are within normal limits. The lung and pleural spaces are clear. Air and stool are noted throughout the colon to level the rectum nonobstructive bowel gas pattern. No suspicious masses or calcifications. There is a linear lucency at the intertrochanteric region of the left hip. Diffuse osteopenia. IMPRESSION: 1. No acute cardiopulmonary process. 2. Nonobstructive bowel gas pattern. 3. Linear lucency overlying the intertrochanteric region of the left hip which is nonspecific and co uld relate to overlying skinfold. Correlate with symptomatology for fracture. Electronically signed by: López Flynn MD (01/08/2022 8:41 PM) [facility]
[2022-01-08 21:19] LABS: BACTERIA,URINE MANY /HPF (0-FEW); CLARITY,URINE CLEAR; COLOR,URINE YELLOW; GLUCOSE,URINE NEG (NEG); NITRITE,URINE POS (NEG); RBC,URINE 0 /HPF (0-2); SQUAMOUS EPITHELIAL CELL,UR MANY /LPF; UROBILINOGEN,URINE 0.2 mg/dL (0.2 mg/dL); WBC,URINE TNTC /HPF (0-4)
[2022-01-08 22:36] VITALS: BP 148/74
== END 2022-01-08 23:45 | disposition home or self-care (01) ==
LOC: ER 17:16
DX: D64.9 Anemia, unspecified (principal); E87.6 Hypokalemia; B34.9 Viral infection, unspecified; N28.9 Disorder of kidney and ureter, unspecified; R79.1 Abnormal coagulation profile; F03.90 Unspecified dementia, unspecified severity, without behavioral disturbance, psychotic disturbance, mood disturbance, and anxiety; K59.00 Constipation, unspecified; N39.0 Urinary tract infection, site not specified; I48.91 Unspecified atrial fibrillation; F41.9 Anxiety disorder, unspecified; M19.90 Unspecified osteoarthritis, unspecified site; I25.10 Atherosclerotic heart disease of native coronary artery without angina pectoris; I11.0 Hypertensive heart disease with heart failure; Z87.440 Personal history of urinary (tract) infections; I50.9 Heart failure, unspecified; Z88.5 Allergy status to narcotic agent
CPT/HCPCS: 36415; 70450; 74022; 80048; 80076; 81001; 82550; 83690; 83735; 83880; 84443; 84484; 85025; 85379; 85610; 85730; 87077; 87086; 87186; 87428; 93005; 96360; 96361; 99285; J7120